=== PATIENT | male | born 1970 | race Caucasian/White ===

== ENCOUNTER 2016-08-20 12:07 | Emergency (ER) | payer BC ==
[2016-08-20] MEDS ORDERED: RABIES IMMUNE GLOB 150 UNIT/ML 10 ML VIAL IM ONE (12:20)
[2016-08-20] MEDS ORDERED: RABIES VACCINE (PCEC) 2.5 UNIT KIT IM ONE (12:20)
--- NOTE | 2016-08-20 12:27 | ED ---
Animal Bite HPI - General Chief Complaint: Animal Bite Stated Complaint: Rabies Exposure Time Seen by Provider: 08/20/16 12:20 Source: patient, RN notes reviewed Mode of arrival: ambulatory Limitations: no limitations - History of Present Illness Initial Comments: 46-year-old male presents emergency Department with chief complaint of bat exposure. Patient states that they're reviewed doing her house and he took on the ceiling which allowed bats to fly around the room and he recommended to come here for rabies vaccines. Patient denies any visible evidence of bite with the help Department recommended that he receive the vaccine. Patient states he did have some bats on them. Patient has NO KNOWN DRUG ALLERGIES. - Related Data Allergies Allergy/AdvReac Type Severity Reaction Status Date / Time No Known Allergies Allergy Verified 08/20/16 12:11 Review of Systems ROS Statement: Those systems with pertinent positive or pertinent negative responses have been documented in the HPI. ROS Other: All systems not noted in ROS Statement are negative. Past Medical History Past Medical History: No Reported History History of Any Multi-Drug Resistant Organisms: None Reported Past Surgical History: Cholecystectomy Past Psychological History: No Psychological Hx Reported Smoking Status: Current every day smoker Past Alcohol Use History: None Reported Past Drug Use History: None Reported General Exam Limitations: no limitations General appearance: alert, in no apparent distress Head exam: Present: atraumatic, normocephalic, normal inspection Neck exam: Present: normal inspection. Absent: tenderness, meningismus, lymphadenopathy Respiratory exam: Present: normal lung sounds bilaterally. Absent: respiratory distress, wheezes, rales, rhonchi, stridor Cardiovascular Exam: Present: regular rate, normal rhythm, normal heart sounds. Absent: systolic murmur, diastolic murmur, rubs, gallop, clicks Neurological exam: Present: alert, oriented X3, CN II-XII intact Psychiatric exam: Present: normal affect, normal mood Skin exam: Present: warm, dry, intact, normal color. Absent: rash Course Vital Signs 08/20/16 12:11 Temperature 97.3 F L Pulse Rate 87 Respiratory 16 Rate Blood Pressure 128/77 O2 Sat by Pulse 98 Oximetry Medical Decision Making - Medical Decision Making Patient was given rabies vaccine and immunoglobulin. Prescription was written for rabies vaccine on days 04/13/2013. Return parameters were discussed. Disposition Clinical Impression: Exposure to bat without known bite Disposition: HOME SELF-CARE Condition: Stable Instructions: Animal Bite (ED) Additional Instructions: Please return to the Emergency Department if symptoms worsen or any other concerns. Referrals: Xin Mills MD [Primary Care Provider] - 1-2 days Time of Disposition: 12:27
[2016-08-20] MEDS ORDERED: RABIES IMMUNE GLOB 150UNIT/ML 2 ML VIAL IM ONE (12:30)
[2016-08-20 13:59] VITALS: BP 126/86; PULSE 83; RESP 20; TEMP 96
== END 2016-08-20 13:58 | disposition home or self-care (01) ==
LOC: EC 12:07
DX: Z20.3 Contact with and (suspected) exposure to rabies (principal); F17.200 Nicotine dependence, unspecified, uncomplicated; Z23 Encounter for immunization
CPT/HCPCS: 90375; 90471; 90675; 96372; 99283

== ENCOUNTER → 2019-06-21 | Outpatient (CLI) | payer BC | END | disposition home or self-care (01) | LOC: LABWHC1 08:08 | PROVIDERS: ATTEND Internal Medicine | DX: R50.9 Fever, unspecified (principal) | CPT/HCPCS: 87635 ==

== ENCOUNTER → 2020-03-19 | Outpatient (CLI) | payer BC | END | disposition home or self-care (01) | LOC: LABWHC1 15:26 | PROVIDERS: ATTEND Internal Medicine | DX: R05 Cough (principal); R68.83 Chills (without fever) | CPT/HCPCS: U0003; C9803 ==

== ENCOUNTER 2021-06-20 23:23 | Inpatient (IN) | payer BC ==
[2021-06-21 00:35] LABS: ALT 13 U/L (4-49); AST 32 U/L (17-59); African American GFR (CKD) >90 (>60 ml/min/1.73 sqM); Albumin 3.6 g/dL (3.5-5.0); Alkaline Phosphatase 101 U/L (38-126); Anion Gap 8 mmol/L; Blood Urea Nitrogen 17 mg/dL (9-20); Calcium 8.8 mg/dL (8.4-10.2); Carbon Dioxide 22 mmol/L (22-30); Chloride 100 mmol/L (98-107); Glucose 109 mg/dL (74-99); Non-African American GFR(CKD) 86 (>60 ml/min/1.73 sqM); Potassium 4.2 mmol/L (3.5-5.1); Sodium 130 mmol/L (137-145); Total Bilirubin 2.1 mg/dL (0.2-1.3); Total Protein 6.3 g/dL (6.3-8.2)
--- NOTE | 2021-06-21 00:37 | XR ---
EXAMINATION TYPE: XR chest 2V DATE OF EXAM: 06/21/2021 COMPARISON: 03/19/2021 HISTORY: Short of breath. Chest pain TECHNIQUE: FINDINGS: There is no heart failure nor confluent pneumonic infiltrate. Heart appears slightly enlarg ed. There are no hilar masses. There are chest leads. There is no pleural effusion. IMPRESSION: Mild cardiomegaly. No change.
--- NOTE | 2021-06-21 00:45 | ED ---
Chest Pain HPI - General Chief Complaint: Chest Pain Stated Complaint: chest pain Time Seen by Provider: 06/21/21 00:42 Source: patient, family Mode of arrival: EMS Limitations: altered mental status, physical limitation - History of Present Illness Initial Comments: This patient is a 51-year-old man who presents with a constellation of symptoms that includes shortness of breath especially orthopnea, a feeling like his abdominal girth is increasing, bilateral leg swelling, that have been getting worse over a few days to weeks. The symptoms had probably started 3 months ago. The patient had been seen about 3 weeks ago and was diagnosed with congestive heart failure. He feels that it is worsening. He has not noted fever or chills. No thick sputum. MD Complaint: chest pain -: hour(s) Onset: during rest Pain Location: substernal Pain Radiation: none Quality: dull Consistency: constant Improves With: nothing Worsens With: nothing Other Symptoms: leg swelling - Related Data Home Medications Medication Instructions Recorded Confirmed Aspirin EC [Ecotrin Low Dose] 81 mg PO DAILY 06/21/21 06/21/21 Atorvastatin [Lipitor] 40 mg PO HS 06/21/21 06/21/21 Zolpidem [Ambien] 5 mg PO HS 06/21/21 06/21/21 Previous Rx's Medication Instructions Recorded Acetaminophen Tab [Tylenol] 650 mg PO Q6HR PRN tab 06/24/21 Bumetanide [BUMEX] 2 mg PO DAILY #90 tab 06/24/21 DULoxetine HCL [Cymbalta] 30 mg PO DAILY #30 cap 06/24/21 HYDROcodone/APAP 5-325MG [[place] 1 each PO Q8HR PRN 2 Days #6 tab 06/24/21 5-325] Allergies Allergy/AdvReac Type Severity Reaction Status Date / Time strawberry AdvReac Rash/Hives Verified 06/21/21 12:52 Review of Systems ROS Statement: Those systems with pertinent positive or pertinent negative responses have been documented in the HPI. ROS Other: All systems not noted in ROS Statement are negative. Constitutional: Denies: fever, chills Respiratory: Reports: cough, dyspnea. Denies: wheezes, hemoptysis, stridor Cardiovascular: Reports: chest pain, orthopnea. Denies: palpitations, dyspnea on exertion, edema, syncope Gastrointestinal: Denies: abdominal pain, nausea, vomiting, diarrhea Genitourinary: Denies: dysuria, hematuria Musculoskeletal: Denies: back pain Skin: Denies: rash Neurological: Denies: headache, weakness EKG Findings - EKG Results: EKG: interpreted by JAMESON, sinus rhythm (Rate 80 bpm) - Blocks, Mustang, Hypertrophy, ST Abn: QRS axis and voltage: left axis deviation (-30 to -90), low voltage (<0.5 MV total QRS and <1.0 MV in each precordial lead) - [place], Pacemaker, Normal: Myocardial infarction: septal [place] (old age or indeterminate) (Possible anteroseptal infarct) Past Medical History Past Medical History: Cancer, Heart Failure, GERD/Reflux, Syncope Additional Past Medical History / Comment(s): Multiple myleoma dx a month ago, Cardiac Amylodosis History of Any Multi-Drug Resistant Organisms: None Reported Past Surgical History: Cholecystectomy, Heart Catheterization Past Anesthesia/Blood Transfusion Reactions: No Reported Reaction Past Psychological History: No Psychological Hx Reported Smoking Status: Current every day smoker Past Alcohol Use History: None Reported Past Drug Use History: None Reported General Exam Limitations: altered mental status, physical limitation General appearance: alert, in no apparent distress Head exam: Present: atraumatic, normocephalic Eye exam: Present: normal appearance. Absent: scleral icterus, conjunctival injection ENT exam: Present: normal oropharynx Neck exam: Present: normal inspection Respiratory exam: Present: rales. Absent: rhonchi Cardiovascular Exam: Present: regular rate, normal rhythm GI/Abdominal exam: Present: soft. Absent: distended, tenderness, guarding, rebound, rigid, mass, pulsatile mass Extremities exam: Present: full ROM, normal capillary refill, pedal edema. Absent: tenderness, calf tenderness Back exam: Present: normal inspection. Absent: CVA tenderness (R), CVA tenderness (L) Neurological exam: Present: alert Skin exam: Present: warm, dry, intact, normal color. Absent: rash Course Vital Signs 06/20/21 06/21/21 06/21/21 23:35 01:30 03:32 Temperature 97.8 F Pulse Rate 79 77 76 Respiratory 20 16 16 Rate Blood Pressure 102/76 100/70 103/71 O2 Sat by Pulse 98 97 96 Oximetry 06/21/21 06:19 Temperature Pulse Rate 73 Respiratory 18 Rate Blood Pressure 108/74 O2 Sat by Pulse 96 Oximetry Disposition Clinical Impression: Heart failure, NSTEMI (non-ST elevated myocardial infarction) Disposition: ADMITTED IP TO THIS HOSP Condition: Fair Is patient prescribed a controlled substance at d/c from ED?: No
[2021-06-21 00:47] LABS: INR 1.2 (<1.2); Prothrombin Time 12.4 sec (9.0-12.0)
[2021-06-21 01:18] LABS: Anisocytosis Slight; Basophils # (A) 0.1 k/uL (0-0.2); Basophils % (A) 2 %; Eosinophils # (A) 0.2 k/uL (0-0.7); Eosinophils % (A) 2 %; HCT 39.6 % (39.0-53.0); HGB 12.7 gm/dL (13.0-17.5); Lymphocytes # (A) 1.5 k/uL (1.0-4.8); Lymphocytes % (A) 20 %; MCH 29.8 pg (25.0-35.0); MCHC 32.1 g/dL (31.0-37.0); MCV 92.8 fL (80.0-100.0); Mean Platelet Volume 10.5; Monocytes # (A) 0.6 k/uL (0-1.0); Monocytes % (A) 8 %; Neutrophils # (A) 4.9 k/uL (1.3-7.7); Neutrophils % (A) 67 %; Platelet Count 156 k/uL (150-450); RBC 4.27 m/uL (4.30-5.90); RDW 17.8 % (11.5-15.5); WBC 7.4 k/uL (3.8-10.6)
[2021-06-21] MEDS ORDERED: MORPHINE SULFATE 4 MG/ML SYRINGE IVP STA ×2 (02:02→06:05)
--- NOTE | 2021-06-21 04:39 | CT ---
EXAMINATION TYPE: CT chest angio for PE DATE OF EXAM: 06/21/2021 COMPARISON: None HISTORY: chest pain, possible PE CT DLP: 484.1 mGycm Automated exposure control for dose reduction was used. CONTRAST: Performed with IV Contrast, patient injected with 80 ml mL of Isovue 370. There are Three-D postprocessed images. The lungs are clear of infiltrate. No pulmonary consolidation. No pleural effusion. Heart is enlarged . There is a mild pericardial effusion. There is moderate abdominal ascites. There are clips from cho lecystectomy. There are a few paratracheal lymph nodes up to 1.5 cm. There are no hilar masses. There are a few sma ll bronchial lymph nodes. There is normal contrast opacification of the pulmonary arteries. There are no filling defects. The thoracic spine is intact. Sternum is intact. The ribs appear intact. IMPRESSION: No evidence of pulmonary embolism. Cardiomegaly with pericardial effusion. Mild mediastinal and bronchial adenopathy. Ascites.
[2021-06-21] MEDS ORDERED: HEPARIN SODIUM 1,000 UN/ML (10ML VL) IV ONE (10:27)
[2021-06-21] MEDS ORDERED: HEPARIN SODIUM 1,000 UN/ML (10ML VL) IV PRN (10:27)
[2021-06-21] MEDS ORDERED: HEPARIN SOD,PORK IN 0.45% NACL 25,000 UNIT in 0.45% NACL 1 250ML.BAG IV SCH (10:30)
--- NOTE | 2021-06-21 10:33 | US ---
EXAMINATION TYPE: US venous doppler duplex LE BI DATE OF EXAM: 06/21/2021 7:21 AM COMPARISON: NONE CLINICAL HISTORY: 51-year-old male leg swelling. SIDE PERFORMED: Bilateral TECHNIQUE: The lower extremity deep venous system is examined utilizing real time linear array sonog alivia with graded compression, doppler sonography and color-flow sonography. FINDINGS: VESSELS IMAGED: Common Femoral Vein Deep Femoral Vein Greater Saphenous Vein * Femoral Vein Popliteal Vein Small Saphenous Vein * Proximal Calf Veins (* superficial vessels) Right Leg: Negative for DVT Left Leg: Negative for DVT IMPRESSION: No evidence for DVT within the bilateral lower extremities imaged from the groin to the upper calf.
[2021-06-21] MEDS ORDERED: FUROSEMIDE 10 MG/ML 4 ML VIAL IV STA (10:46)
--- NOTE | 2021-06-21 10:49 | P.HPIM ---
History of Present Illness This is a pleasant 51 years old male with past medical history of GERD, syncope, heart disease and history of systolic heart failure. His smoker about 1/2-1 PPD Patient states he came to the hospital because of bloated Eris slightly getting worse over the last 3 months as well as leg swelling. Also patient has been feeling dizzy and he was out of it yesterday on and off, he felt like presyncope and actually he was told me he passed out for a few seconds twice yesterday. No evidence of seizure-like activities, Is also been complaining of from epigastric abdominal pain that states that it illustrates to the bottom, started yesterday about 7-8/10 in severity, felt like a knife with no vomiting, he has normal bowel movement last one was He denies dysuria or urgency, no headache, no weakness or numbness, blurred vision or swallowing problem. Also patient has been complaining of from epigastric abdominal pain radiating st raight to the bottom as he states pain started yesterday, currently 7-8/10, felt like a knife. No vomiting. Last bowel movement was yesterday and was normal. Also pat also has been complaining of from central chest pain, nonradiating, started yesterday about 5/10 in severity, felt like someone sitting on his chest. Nonsuicidal having dry cough. No dyspnea. He smokes about 2 cigarettes per day he was consulted and he does not want nicotine patch, he denies alcohol or illicit drugs Neck ultrasound is negative for DVT Patient is afebrile, blood pressure is 102/69. He is saturating 95% on room air. Tarsal vitals are stable. labs reviewed, hemoglobin 12.7, rest of CBC is unremarkable. INR is 1.2. Sodium 1:30. Creatinine 1.0. Stress of her electrolytes and BMP is unremarkable. Bilirubin slightly elevated 2.1, liver enzymes not elevated. Troponin is elevated 0.384. ProBNP is also elevated 10 500. D-dimer slightly elevated 1.1 EKG showing his normal sinus rhythm at 80 with low voltage and poor R-wave progression. QTC 417. No significant ST-T changes. CTA of the chest: No pulmonary infiltrate or consolidation. Moderate abdominal ascites. No evidence of pulmonary embolism cardiomegaly with pericardial effusion. Mild mediastinal and bronchial adenopathy Chest x-ray: Mild cardiomegaly. No change On admission patient received morphine only. Also patient started by heparin drip by education faculty member Recent echo: ejection fraction of 30-35% on 03/31 Review of Systems CONSTITUTIONAL: No fever, no malaise, no fatigue. HEENT: No recent visual problems or hearing problems. Denied any sore throat. CARDIOVASCULAR: No orthopnea, PND, no palpitations, no syncope. PULMONARY: No chest wall tenderness, no hemoptysis. GASTROINTESTINAL: No diarrhea, no nausea, no vomiting, no abdominal pain. Normoactive bowel sounds. NEUROLOGICAL: No headaches, no weakness, no numbness. HEMATOLOGICAL: Denies any bleeding or petechiae. GENITOURINARY: Denies any burning micturition, frequency, or urgency. MUSCULOSKELETAL/RHEUMATOLOGICAL: Denies any joint pain, swelling, or any muscle pain. ENDOCRINE: Denies any polyuria or polydipsia. Past Medical History Past Medical History: Cancer, Heart Failure, GERD/Reflux, Syncope Additional Past Medical History / Comment(s): Multiple myleoma dx a month ago, Cardiac Amylodosis History of Any Multi-Drug Resistant Organisms: None Reported Past Surgical History: Cholecystectomy, Heart Catheterization Past Anesthesia/Blood Transfusion Reactions: No Reported Reaction Past Psychological History: No Psychological Hx Reported Smoking Status: Current every day smoker Past Alcohol Use History: None Reported Past Drug Use History: None Reported Medications and Allergies Home Medications Medication Instructions Recorded Confirmed Type Acetaminophen Tab [Tylenol Tab] 1,000 mg PO Q6HR PRN 03/19/21 03/19/21 History Ibuprofen [Motrin Ib] 800 mg PO Q8H PRN 03/19/21 03/19/21 History Omeprazole 20 mg PO DAILY 03/19/21 03/19/21 History Allergies Allergy/AdvReac Type Severity Reaction Status Date / Time strawberry AdvReac Rash/Hives Verified 06/20/21 23:35 Physical Exam Vitals: Vital Signs Temp Pulse Pulse Resp BP BP Pulse Ox 06/21/21 06:50 97.5 F L 84 18 102/69 95 06/21/21 06:19 73 18 108/74 96 06/21/21 03:32 76 16 103/71 96 06/21/21 01:30 77 16 100/70 97 06/20/21 23:35 97.8 F 79 20 102/76 98 Intake and Output 05/06/21/21 06/21/21 22:59 06:59 14:59 Other: Weight 92.079 kg GENERAL: The patient is alert and oriented x3, not in any acute distress. Well developed, well nourished. HEENT: Pupils are round and equally reacting to light. EOMI. No scleral icterus. No conjunctival pallor. Normocephalic, atraumatic. No pharyngeal erythema. No thyromegaly. CARDIOVASCULAR: S1 and S2 present. No murmurs, rubs, or gallops. PULMONARY: Chest is clear to auscultation, no wheezing or crackles. -ABDOMEN: Soft, nontender, distended, normoactive bowel sounds. No palpable organomegaly. MUSCULOSKELETAL: No joint swelling or deformity. -EXTREMITIES: No cyanosis, clubbing. mild bilateral leg edema NEUROLOGICAL: Gross neurological examination did not reveal any focal deficits. SKIN: No rashes. No petechiae Results CBC & Chem 7: 06/21/21 01:05 06/21/21 00:18 Labs: Abnormal Lab Results - Last 24 Hours (Table) 06/21/21 06/21/21 06/21/21 Range/Units 00:18 00:18 00:18 RBC (4.30-5.90) m/uL Hgb (13.0-17.5) gm/dL RDW (11.5-15.5) % PT 12.4 H (9.0-12.0) sec INR 1.2 H (<1.2) D-Dimer 1.19 H (<0.60) mg/L FEU Sodium 130 L (137-145) mmol/L Glucose 109 H (74-99) mg/dL Total Bilirubin 2.1 H (0.2-1.3) mg/dL Troponin I 0.384 H* (0.000-0.034) ng/mL 06/21/21 Range/Units 01:05 RBC 4.27 L (4.30-5.90) m/uL Hgb 12.7 L (13.0-17.5) gm/dL RDW 17.8 H (11.5-15.5) % PT (9.0-12.0) sec INR (<1.2) D-Dimer (<0.60) mg/L FEU Sodium (137-145) mmol/L Glucose (74-99) mg/dL Total Bilirubin (0.2-1.3) mg/dL Troponin I (0.000-0.034) ng/mL Assessment and Plan Assessment: Chest pain, with elevated troponin rule out cardiac causes Acute and chronic systolic CHF with history of ejection fraction of 30-35% on 03/31 Hypervolemic hyponatremia Presyncope, patient actually passed out twice for a few seconds as he states Elevated d-dimer with negative PE and DVT on CTA and venous Doppler respectively Possible acute delirium History of GERD History of syncope Plan: This is a pleasant 51 years old male who presents with CHF and chest pain and elevated troponin. Cardiology consult We will check abdominal ultrasound Check CT of the brain and a neuro check. Check urinalysis and bladder scan Labs and medication were reviewed.. Continue same treatment. Continue with symptomatic treatment. Resume home medication. Monitor lytes and vitals. DVT and GI prophylaxis. Further recommendations depends on the clinical course of the patient DVT prophylaxisin GI Prophylaxis: Ppi Prognosis is guarded
--- NOTE | 2021-06-21 11:12 | CT ---
EXAMINATION TYPE: CT brain wo con DATE OF EXAM: 06/21/2021 COMPARISON: None HISTORY: 51-year-old male with confusion and syncope, Episode of altered mental status TECHNIQUE: Examination was done in axial plane without intravenous contrast. Coronal and sagittal r econstructions performed. CT DLP: 1131.4 mGycm Automated exposure control for dose reduction was used. FINDINGS: There is no evidence of acute intracranial hemorrhage, acute ischemic changes, mass, mass-effect, or extra-axial fluid collection. There is no effacement of cerebral sulci or basal subarachnoid cister ns. There is no hydrocephalus. There is no midline shift. [place]-white matter distinction is preserv ed. Leftward nasal septal deviation. Trace mucosal thickening ethmoid air cells. Mastoid air cells well p neumatized. Orbits and globes are intact. IMPRESSION: No acute intracranial abnormality seen.
[2021-06-21 11:25] LABS: Anisocytosis Slight; Basophils # (A) 0.1 k/uL (0-0.2); Basophils % (A) 1 %; Eosinophils # (A) 0.1 k/uL (0-0.7); Eosinophils % (A) 2 %; HCT 41.5 % (39.0-53.0); HGB 13.3 gm/dL (13.0-17.5); Hypochromasia Slight; Lymphocytes # (A) 1.4 k/uL (1.0-4.8); Lymphocytes % (A) 23 %; MCH 30.3 pg (25.0-35.0); MCHC 31.9 g/dL (31.0-37.0); Macrocytosis Slight; Mean Platelet Volume 10.4; Monocytes # (A) 0.5 k/uL (0-1.0); Monocytes % (A) 8 %; Neutrophils # (A) 3.8 k/uL (1.3-7.7); Neutrophils % (A) 64 %; Platelet Count 163 k/uL (150-450); RBC 4.37 m/uL (4.30-5.90); RDW 18.1 % (11.5-15.5)
[2021-06-21 12:15] LABS: Poikilocytosis (M) Present
[2021-06-21 12:43] LABS: Appearance,Urine Clear (Clear); Bilirubin,Urine Negative (Negative); Blood,Urine Trace (Negative); Color,Urine Yellow; Glucose,Urine (UA) Negative (Negative); Hyaline Casts,Urine 1 /lpf (0-2); Ketones,Urine Negative (Negative); Leukocyte Esterase,Urine Negative (Negative); Nitrite,Urine Negative (Negative); PH, Urine 5.5 (5.0-8.0); Protein,Urine Negative (Negative); RBC,Urine 1 /hpf (0-5); Specific Gravity,Urine 1.015 (1.001-1.035); Squamous Epithelial Cell,Urine 1 /hpf (0-4); Urobilinogen,Urine <2.0 mg/dL (<2.0); WBC,Urine 5 /hpf (0-5)
[2021-06-21] MEDS: PANTOPRAZOLE 40 MG/10 ML VIAL IVP SCH (12:44)
--- NOTE | 2021-06-21 13:43 | US ---
EXAMINATION TYPE: US abdomen complete DATE OF EXAM: 06/21/2021 COMPARISON: NONE CLINICAL HISTORY: 51-year-old male Epigastric pain and tenderness and abdominal distention. TECHNIQUE: Multiple sonographic images of the abdomen are obtained. FINDINGS: EXAM MEASUREMENTS: Liver Length: 15.7cm Gallbladder: Surgically absent CBD: Approximated at 0.4 cm Spleen: 8.6 cm Right Kidney: 8.8 x 5.0 x 4.1cm Left Kidney: 9.7 x 4.4 x 5.2cm Jar Filler notes: Technically difficult exam due to overlying bowel gas, interstitial edema, ascites and overlying bowel gas. Pancreas: Obscured by bowel gas Liver: limited views show no gross abnormality. Gallbladder: Surgically absent CBD: very limited visualization Spleen: wnl Right Kidney: measures small Left Kidney: limited views show no obvious mass or hydronephrosis. Upper IVC: wnl Abd Aorta: not seem due to interstitial edema, fluid and overlying bowel gas Scattered mild to moderate ascites in the 4 quadrants. IMPRESSION: Technically limited and difficult exam. Status post cholecystectomy. No biliary ductal dilatation. Mi [id number] abdominal ascites.
--- NOTE | 2021-06-21 18:13 | P.CRDCN ---
History of Present Illness History of present illness: HISTORY OF PRESENTING ILLNESS Patient is a pleasant 51-year-old male with a history of TIA approximately 20 years ago, tobacco abuse, recent diagnosis of systolic heart failure March 2021 with findings consistent with cardiac amyloidosis as well as found to have multiple myeloma. Initially had presented in March 2021 with episodes of shortness breath, chest discomfort, increased abdominal swelling and echo showed EF 30-35% with global hypokinesis as well as severe left ventricular thickness measuring 2.0 cm and mild to moderate tricuspid regurgitation with RVSP of 47 with a small pericardial effusion. EKG was noted to have low voltage and he had minimal troponin elevation at that time. Strain pattern showed "rouse on top" apical sparing concerning for cardiac amyloidosis. His free [place] light chain was 5.2 and his free lambda light chain was severely elevated at 80.8. Unfortunately he left AMA and did not have remainder of workup performed. He eventually follow up with a bridge welder out of [facility] with cardiac MRI performed apparently consistent with cardiac amyloidosis. He has been seen a client executive as well and was diagnosed with multiple myeloma however no treatment has been initiated as definitive diagnosis of cardiac amyloid was desired by client executive. Apparently they are considering bone marrow transplant. He therefore was referred to heart failure specialist Dr. Li with [facility] and has an appointment this with recommendations for possible cardiac biopsy. Apparently he had a fat pad biopsy performed which was negative for amyloid. He additionally has some neuropathy in his lower extremity. He was initially placed on some heart failure regimen with lisinopril 5 mg daily, carvedilol 3.125 mg twice a day, Lasix 40 mg daily. He states he had a heart catheterization which showed only mild nonobstructive CAD. Unclear if he had a right heart catheterization at that time. Unfortunately he has had progressive mainly abdominal swelling as well as mild lower extremity swelling. His Lasix oral has not been working as well at home as it did previously. He presented secondary to symptoms of shortness breath and orthopnea over the last few days to weeks. Additionally he had a episode of feeling lightheaded and "woozy" and was having some chest pain and therefore decided come to the emergency department. Denies any recent fevers, chills, cough. Chest CT showed no pulmonary embolism with cardiomegaly and mild pericardial effusion. EKG shows low voltage with poor R-wave progression and T-wave inversions, flattening in the lateral leads. Troponin mildly elevated at 0.38, 0.40, 0.42. Similar to prior presentation in March previously 0.35. Blood pressures above more line 102/69. He did receive IV Lasix 40 mg with good urine output. REVIEW OF SYSTEMS At the time of my exam: CONSTITUTIONAL: Denies fever or chills. CARDIOVASCULAR: +chest pain, +shortness of breath, +orthopnea, PND or palpitations. RESPIRATORY: Denies cough. GASTROINTESTINAL: Denies abdominal pain, diarrhea, constipation, nausea or vomiting. MUSCULOSKELETAL: Denies myalgias. NEUROLOGIC: Denies numbness, tingling or weakness. ENDOCRINE: +fatigue, +weight gain, no polydipsia or polyurina. GENITOURINARY: Denies burning, hematuria or urgency with micturation. HEMATOLOGIC: Denies history of anemia or bleeding. PHYSICAL EXAMINATION Vital signs reviewed. CONSTITUTIONAL: No apparent distress. HEENT: Head is normocephalic. Pupils are equal, round. Sclerae anicteric. Mucous membranes of the mouth are moist. +JVD. No carotid bruit. CHEST EXAMINATION: Lungs are clear to auscultation. No chest wall tenderness is noted on palpation or with deep breathing. HEART EXAMINATION: Regular rate and rhythm. S1, S2 heard. No murmurs, gallops or rub. ABDOMEN: Soft, nontender. Positive bowel sounds. EXTREMITIES: 2+ peripheral pulses, 1+ lower extremity edema and no calf tenderness. +abdominal edema NEUROLOGIC EXAMINATION: Patient is awake, alert and oriented x3. ASSESSMENT 1. Acute on chronic systolic heart failure 2. Nonischemic cardiomyopathy EF 30-35% with all of workup consistent with cardiac amyloidosis 3. Non-STEMI, type II mechanism related to heart failure, microvascular dysfunction from cardiac amyloid 4. Multiple myeloma elevated light chains 5. Small pericardial effusion, appears similar to previous echo 6. Episode of lightheadedness, concern of end-stage heart failure 7. 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 Li on . Patient will likely need right heart catheterization to further classify patient however some concern of end-stage heart failure with some lightheaded episodes. He currently appears time overloaded and we will continue with diuretics. Continue with carvedilol for now however may discontinue if has low cardiac output. Continue afterload reduction with lisinopril. No evidence of any acute coronary syndrome and elevated troponins, chest pain related to microvascular dysfunction from cardiac amyloid. Stop heparin drip. Continue supportive care and hopeful discharge in next 2-3 days with follow-up outpatient with heart failure specialist. Past Medical History Past Medical History: Cancer, Heart Failure, GERD/Reflux, Syncope Additional Past Medical History / Comment(s): Multiple myleoma dx a month ago, Cardiac Amylodosis History of Any Multi-Drug Resistant Organisms: None Reported Past Surgical History: Cholecystectomy, Heart Catheterization Past Anesthesia/Blood Transfusion Reactions: No Reported Reaction Past Psychological History: No Psychological Hx Reported Smoking Status: Current every day smoker Past Alcohol Use History: None Reported Past Drug Use History: None Reported Medications and Allergies Home Medications Medication Instructions Recorded Confirmed Type Aspirin EC [Ecotrin Low Dose] 81 mg PO DAILY 06/21/21 06/21/21 History Atorvastatin [Lipitor] 40 mg PO HS 06/21/21 06/21/21 History Furosemide [Lasix] 40 mg PO DAILY 06/21/21 06/21/21 History Zolpidem [Ambien] 5 mg PO HS 06/21/21 06/21/21 History carvediloL [Coreg] 3.125 mg PO BID 06/21/21 06/21/21 History lisinopriL [Zestril] 5 mg PO DAILY 06/21/21 06/21/21 History Allergies Allergy/AdvReac Type Severity Reaction Status Date / Time strawberry AdvReac Rash/Hives Verified 06/21/21 12:52 Physical Exam Vitals: Vital Signs Temp Pulse Pulse Resp BP BP Pulse Ox 06/21/21 14:00 18 06/21/21 12:00 97.3 F L 80 18 108/69 97 06/21/21 07:16 18 06/21/21 07:15 97.2 F L 72 18 94/63 95 06/21/21 06:50 97.5 F L 84 18 102/69 95 06/21/21 06:19 73 18 108/74 96 06/21/21 03:32 76 16 103/71 96 06/21/21 01:30 77 16 100/70 97 06/20/21 23:35 97.8 F 79 20 102/76 98 Intake and Output 06/21/21 06/21/21 06/21/21 06:59 14:59 22:59 Intake Total 150 260 Output Total 260 700 Balance -110 -440 Intake: IV 30 Invasive Line 1 10 Invasive Line 2 20 Oral 120 260 Output: Urine 230 700 Post Void Residual 30 Other: # Voids 1 Weight 92.079 kg 92.079 kg Results 06/21/21 10:44 06/21/21 00:18 Cardiac Enzymes 06/21/21 06/21/21 06/21/21 Range/Units 00:18 00:18 07:02 AST 32 (17-59) U/L Troponin I 0.384 H* 0.408 H* (0.000-0.034) ng/mL 06/21/21 Range/Units 09:00 AST (17-59) U/L Troponin I 0.428 H* (0.000-0.034) ng/mL Coagulation 06/21/21 06/21/21 Range/Units 00:18 10:44 PT 12.4 H (9.0-12.0) sec APTT 25.5 (22.0-30.0) sec CBC 06/21/21 06/21/21 Range/Units 01:05 10:44 WBC 7.4 6.0 (3.8-10.6) k/uL RBC 4.27 L 4.37 (4.30-5.90) m/uL Hgb 12.7 L 13.3 (13.0-17.5) gm/dL Hct 39.6 41.5 (39.0-53.0) % Plt Count 156 163 (150-450) k/uL Comprehensive Metabolic Panel 06/21/21 Range/Units 00:18 Sodium 130 L (137-145) mmol/L Potassium 4.2 (3.5-5.1) mmol/L Chloride 100 (98-107) mmol/L Carbon Dioxide 22 (22-30) mmol/L BUN 17 (9-20) mg/dL Creatinine 1.02 (0.66-1.25) mg/dL Glucose 109 H (74-99) mg/dL Calcium 8.8 (8.4-10.2) mg/dL AST 32 (17-59) U/L ALT 13 (4-49) U/L Alkaline Phosphatase 101 (38-126) U/L Total Protein 6.3 (6.3-8.2) g/dL Albumin 3.6 (3.5-5.0) g/dL Current Medications Generic Name Dose Route Start Last Admin Trade Name Alex PRN Reason Stop Dose Admin Furosemide 80 mg 06/21/21 18:00 Furosemide 10 Mg/Ml 10 Ml Vial IV Q12H MIGUEL Heparin Sodium (Porcine) 0 unit 06/21/21 10:27 Heparin Sodium 1,000 Un/Ml (10ml Vl) IV PER PROTOCOL PRN Low PTT Protocol Heparin Sodium/Sodium Chloride 250 mls @ 10 mls/hr 06/21/21 10:30 06/21/21 12:44 25,000 unit/ Sodium Chloride IV 10.86 units/kg/hr .Q24H MIGUEL 10 mls/hr Administration Protocol 10.86 UNITS/KG/HR Pantoprazole Sodium 40 mg 06/21/21 11:00 06/21/21 12:44 Pantoprazole 40 Mg/10 Ml Vial IVP 40 mg DAILY MIGUEL Administration Sodium Chloride 10 ml 06/21/21 09:00 06/21/21 11:02 Sodium Chloride 0.9% Flush 10 Ml Syringe IV Not Given BID MIGUEL Intake and Output 06/21/21 06/21/21 06/21/21 06:59 14:59 22:59 Intake Total 150 260 Output Total 260 700 Balance -110 -440 Intake: IV 30 Invasive Line 1 10 Invasive Line 2 20 Oral 120 260 Output: Urine 230 700 Post Void Residual 30 Other: # Voids 1 Weight 92.079 kg 92.079 kg Patient Weight 06/22/21 06:59 Weight 92.079 kg 06/21/21 10:44 06/21/21 00:18
[2021-06-21] MEDS: FUROSEMIDE 10 MG/ML 10 ML VIAL IV SCH (18:37)
[2021-06-22] MEDS: FUROSEMIDE 10 MG/ML 10 ML VIAL IV SCH ×2 (05:15→17:16)
[2021-06-22 06:31] LABS: Anisocytosis Slight; Basophils # (A) 0.1 k/uL (0-0.2); Basophils % (A) 1 %; Eosinophils # (A) 0.1 k/uL (0-0.7); Eosinophils % (A) 2 %; HCT 38.8 % (39.0-53.0); HGB 12.5 gm/dL (13.0-17.5); Hypochromasia Slight; Lymphocytes # (A) 1.2 k/uL (1.0-4.8); Lymphocytes % (A) 25 %; MCH 30.6 pg (25.0-35.0); MCHC 32.2 g/dL (31.0-37.0); MCV 95.1 fL (80.0-100.0); Macrocytosis Slight; Mean Platelet Volume 10.5; Monocytes # (A) 0.4 k/uL (0-1.0); Monocytes % (A) 8 %; Neutrophils # (A) 3.2 k/uL (1.3-7.7); Neutrophils % (A) 62 %; Platelet Count 156 k/uL (150-450); RBC 4.08 m/uL (4.30-5.90); RDW 18.3 % (11.5-15.5); WBC 5.1 k/uL (3.8-10.6)
[2021-06-22 06:39] LABS: INR 1.2 (<1.2); Prothrombin Time 12.4 sec (9.0-12.0)
[2021-06-22 06:47] LABS: ALT 12 U/L (4-49); AST 29 U/L (17-59); African American GFR (CKD) >90 (>60 ml/min/1.73 sqM); Albumin 3.3 g/dL (3.5-5.0); Alkaline Phosphatase 104 U/L (38-126); Anion Gap 9 mmol/L; Blood Urea Nitrogen 15 mg/dL (9-20); Calcium 8.4 mg/dL (8.4-10.2); Carbon Dioxide 22 mmol/L (22-30); Chloride 101 mmol/L (98-107); Glucose 74 mg/dL (74-99); Magnesium 2.1 mg/dL (1.6-2.3); Non-African American GFR(CKD) 84 (>60 ml/min/1.73 sqM); Potassium 4.2 mmol/L (3.5-5.1); Sodium 132 mmol/L (137-145); Total Bilirubin 2.3 mg/dL (0.2-1.3); Total Protein 5.9 g/dL (6.3-8.2)
[2021-06-22] MEDS: PANTOPRAZOLE 40 MG/10 ML VIAL IVP SCH (08:24)
[2021-06-22 12:34] VITALS: BMI 29.5
--- NOTE | 2021-06-22 13:40 | P.PN ---
Subjective Progress Note Date: 06/22/21 HISTORY OF PRESENTING ILLNESS Patient is a pleasant 51-year-old male with a history of TIA approximately 20 years ago, tobacco abuse, recent diagnosis of systolic heart failure March 2021 with findings consistent with cardiac amyloidosis as well as found to have multiple myeloma. Initially had presented in March 2021 with episodes of shortness breath, chest discomfort, increased abdominal swelling and echo showed EF 30-35% with global hypokinesis as well as severe left ventricular thickness measuring 2.0 cm and mild to moderate tricuspid regurgitation with RVSP of 47 with a small pericardial effusion. EKG was noted to have low voltage and he had minimal troponin elevation at that time. Strain pattern showed "rouse on top" apical sparing concerning for cardiac amyloidosis. His free [place] light chain was 5.2 and his free lambda light chain was severely elevated at 80.8. Unfortunately he left AMA and did not have remainder of workup performed. He eventually follow up with a tempering machine operator out of [facility] with cardiac MRI performed apparently consistent with cardiac amyloidosis. He has been seen a chief librarian music department as well and was diagnosed with multiple myeloma however no treatm ent has been initiated as definitive diagnosis of cardiac amyloid was desired by chief librarian music department. Apparently they are considering bone marrow transplant. He therefore was referred to heart failure specialist Dr. Li with [facility] and has an appointment this with recommendations for possible cardiac biopsy. Apparently he had a fat pad biopsy performed which was negative for amyloid. He additionally has some neuropathy in his lower extremity. He was initially placed on some heart failure regimen with lisinopril 5 mg daily, carvedilol 3.125 mg twice a day, Lasix 40 mg daily. He states he had a heart catheterization which showed only mild nonobstructive CAD. Unclear if he had a right heart catheterization at that time. Unfortunately he has had progressive mainly abdominal swelling as well as mild lower extremity swelling. His Lasix oral has not been working as well at home as it did previously. He presented secondary to symptoms of shortness breath and orthopnea over the last few days to weeks. Additionally he had a episode of feeling lightheaded and "woozy" and was having some chest pain and therefore decided come to the emergency department. Denies any recent fevers, chills, cough. Chest CT showed no pulmonary embolism with cardiomegaly and mild pericardial effusion. EKG shows low voltage with poor R-wave progression and T-wave inversions, flattening in the lateral leads. Troponin mildly elevated at 0.38, 0.40, 0.42. Similar to prior presentation in March previously 0.35. Blood pressures above more line 102/69. He did receive IV Lasix 40 mg with good urine output. 06/22/2021 Patient examined this morning at the bedside. Patient denies chest pain or pressure. He reports improvement in his shortness of breath. He states he related to the bathroom without any shortness of breath. He does report feeling short of breath when he is laying flat in bed. He remains on IV Lasix. Patient's blood pressure is on the lower side today with a systolic in the 80s. His carvedilol and lisinopril are currently on hold. PHYSICAL EXAMINATION Vital signs reviewed. CONSTITUTIONAL: No apparent distress. HEENT: Head is normocephalic. Pupils are equal, round. Sclerae anicteric. Mucous membranes of the mouth are moist. +JVD. No carotid bruit. CHEST EXAMINATION: Lungs are clear to auscultation. No chest wall tenderness is noted on palpation or with deep breathing. HEART EXAMINATION: Regular rate and rhythm. S1, S2 heard. No murmurs, gallops or rub. ABDOMEN: Soft, nontender. Positive bowel sounds. EXTREMITIES: 2+ peripheral pulses, 1+ lower extremity edema and no calf tenderness. NEUROLOGIC EXAMINATION: Patient is awake, alert and oriented x3. ASSESSMENT 1. Acute on chronic systolic heart failure 2. Nonischemic cardiomyopathy EF 30-35% with all of workup consistent with cardiac amyloidosis 3. Non-STEMI, type II mechanism related to heart failure, microvascular dysfunction from cardiac amyloid 4. Multiple myeloma elevated light chains 5. Small pericardial effusion, appears similar to previous echo 6. Episode of lightheadedness, concern of end-stage heart failure 7. 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 Continue to monitor blood pressure Patient undergoing workup for cardiac amyloid and scheduled to see heart failure specialist Dr. Li on . Patient will likely require right sided heart cath with his primary tempering machine operator. Further recommendations pending patient course Nurse practitioner note has been reviewed by physician. Signing provider agrees with the documented findings, assessment, and plan of care. Objective - Vital Signs Vital signs: Vital Signs Temp 98.2 F 06/22/21 12:00 Pulse 84 06/22/21 12:00 Resp 16 06/22/21 12:00 BP 100/66 06/22/21 12:00 Pulse Ox 99 06/22/21 12:00 Intake & Output 06/21/21 06/22/21 06/22/21 18:59 06:59 18:59 Intake Total 021.313 2083 Output Total 960 2250 700 Balance -489.833 -2250 320 Weight 92.079 kg 93.5 kg 93.5 kg Intake: IV 30 20 Invasive Line 1 10 Invasive Line 2 20 20 Intake, IV Titration 60.167 Amount Heparin Sod,Pork in 0.45% 60.167 NaCl 25,000 unit In 0.45 % NaCl 1 250ml.bag @ 10. 86 UNITS/KG/HR 10 mls/hr IV .Q24H MIGUEL Rx#: [id number] Oral 380 1000 Output: Urine 930 2250 700 Post Void Residual 30 Other: # Voids 1 - Labs CBC & Chem 7: 06/22/21 05:13 06/22/21 05:13 Labs: Abnormal Lab Results - Last 24 Hours (Table) 06/22/21 06/22/21 06/22/21 Range/Units 05:13 05:13 05:13 RBC 4.08 L (4.30-5.90) m/uL Hgb 12.5 L (13.0-17.5) gm/dL Hct 38.8 L (39.0-53.0) % RDW 18.3 H (11.5-15.5) % PT 12.4 H (9.0-12.0) sec INR 1.2 H (<1.2) Sodium 132 L (137-145) mmol/L Total Bilirubin 2.3 H (0.2-1.3) mg/dL Total Protein 5.9 L (6.3-8.2) g/dL Albumin 3.3 L (3.5-5.0) g/dL
[2021-06-22] MEDS ORDERED: ACETAMINOPHEN TAB 325 MG TAB PO PRN (17:27)
[2021-06-22] MEDS: ATORVASTATIN 40 MG TAB PO SCH (21:03)
[2021-06-22] MEDS: HYDROcodone/APAP 5-325MG 1 EACH TAB PO PRN (21:03)
--- NOTE | 2021-06-22 21:28 | P.PN ---
Subjective Progress Note Date: 06/22/21 This is a pleasant 51 years old male with past medical history of GERD, syncope, heart disease and history of systolic heart failure. His smoker about 1/2-1 PPD Patient states he came to the hospital because of bloated Eris slightly getting worse over the last 3 months as well as leg swelling. Also patient has been feeling dizzy and he was out of it yesterday on and off, he felt like presyncope and actually he was told me he passed out for a few seconds twice yesterday. No evidence of seizure-like activities, Is also been complaining of from epigastric abdominal pain that states that it illustrates to the bottom, started yesterday about 7-8/10 in severity, felt like a knife with no vomiting, he has normal bowel movement last one was He denies dysuria or urgency, no headache, no weakness or numbness, blurred vision or swallowing problem. Also patient has been complaining of from epigastric abdominal pain radiating straight to the bottom as he states pain started yesterday, currently 7-8/10, felt like a knife. No vomiting. Last bowel movement was yesterday and was normal. Also pat also has been complaining of from central chest pain, nonradiating, started yesterday about 5/10 in severity, felt like someone sitting on his chest. Nonsuicidal having dry cough. No dyspnea. He smokes about 2 cigarettes per day he was consulted and he does not want nicotine patch, he denies alcohol or illicit drugs Neck ultrasound is negative for DVT Patient is afebrile, blood pressure is 102/69. He is saturating 95% on room air. Tarsal vitals are stable. labs reviewed, hemoglobin 12.7, rest of CBC is unremarkable. INR is 1.2. Sodium 1:30. Creatinine 1.0. Stress of her electrolytes and BMP is unremarkable. Bilirubin slightly elevated 2.1, liver enzymes not elevated. Troponin is elevated 0.384. ProBNP is also elevated 10 500. D-dimer slightly elevated 1.1 EKG showing his normal sinus rhythm at 80 with low voltage and poor R-wave progression. QTC 417. No significant ST-T changes. CTA of the chest: No pulmonary infiltrate or consolidation. Moderate abdominal ascites. No evidence of pulmonary embolism cardiomegaly with pericardial effusion. Mild mediastinal and bronchial adenopathy Chest x-ray: Mild cardiomegaly. No change On admission patient received morphine only. Also patient started by heparin drip by dry mill operator Recent echo: ejection fraction of 30-35% on 03/3106/22/2021 Today patient is feeling less short of breath, was able to tolerate shower. Shortness of breath is worse when he is lying flat. Abdominal edema is improving. Lower extremity edema is also improving, now more so on the right than the left. Main complaint is feeling fatigued with low appetite. Labs today showing sodium of 132, total bili 2.3. Albumin 3.3. Continues on IV lasix 80 mg Q12. He is negative 2.9 Liters in the past 24 hours. Blood pressure on the lower side today 80/50's, lisinopril has been placed on hold in addition to coreg. He is being followed closely by cardiology services. Brain CT completed yesterday negative for acute. No further episodes of altered mentation. Abdominal ultrasound completed yesterday showing scattered mild to moderate abdominal ascites Review of Systems Constitutional: Reports fatigue. denied any fever. Cardio vascular: denied any chest pain, palpitations Gastrointestinal: denied any nausea, vomiting, diarrhea Pulmonary: Reports shortness of breath, positional. Denies cough Neurologic denied any new focal deficits All inpatient medications were reviewed and appropriate changes in these medications as dictated in the interval history and assessment and plan. PHYSICAL EXAMINATION: GENERAL: The patient is alert and oriented x3, not in any acute distress. Well developed, well nourished. HEENT: Pupils are round and equally reacting to light. EOMI. No scleral icterus. No conjunctival pallor. Normocephalic, atraumatic. No pharyngeal erythema. No thyromegaly. CARDIOVASCULAR: S1 and S2 present. No murmurs, rubs, or gallops. +JVD. PULMONARY: Bibasilar crackles, no wheezing noted. ABDOMEN: Soft, nontender, nondistended, normoactive bowel sounds. No palpable organomegaly. Edematous, no longer pitting. MUSCULOSKELETAL: No joint swelling or deformity. EXTREMITIES: No cyanosis, clubbing. Right greater than left lower extremity jessica ma. NEUROLOGICAL: Gross neurological examination did not reveal any focal deficits. SKIN: No rashes. Assessment and plan Assessment Acute on chronic systolic CHF Nonischemic cardiomypoathy with history of ejection fraction of 30-35% on 03/31, work up so far consistent with cardiac amyloidosis, scheduled to see specialist on regarding biopsy Elevated troponins secondary to Type 2 NSTEMI related to cardiac amyloid Ascites secondary to hepatic congestion Hypervolemic hyponatremia, improving Presyncope, per patient passed out twice for 2 seconds each time, concern for end-stage heart failure Elevated d-dimer with negative PE and DVT on CTA and venous Doppler respectively Multiple myeloma has not undergone treatment yet Peripheral neuropathy History of GERD History of syncope GI prophylaxis DVT Prophylaxis Plan Continue IV lasix, monitor intake and output Coreg, Lisinopril on hold for hypotension Continue neuro checks Pain management Repeat sodium level in AM Cardiology following patient closely Prognosis guarded The impression and plan of care has been dictated by Jaylin Gilmore, Nurse Practitioner as directed. Dr. Jeanmarie MD I have performed a history and physical examination and medical decision making of this patient, discussed the same with the dictator, and agree with the dictators assessment and plan as written, documented as a scribe. Based on total visit time, I have performed more than 50% of this visit. Objective - Vital Signs Vital signs: Vital Signs Temp 98.6 F 06/22/21 08:24 Pulse 87 06/22/21 08:24 Resp 16 06/22/21 08:24 BP 84/51 06/22/21 08:24 Pulse Ox 93 L 06/22/21 08:24 Intake & Output 06/21/21 06/22/21 06/22/21 18:59 06:59 18:59 Intake Total 470.167 560 Output Total 960 2250 700 Balance -489.833 -2250 -140 Weight 92.079 kg 93.5 kg Intake: IV 30 10 Invasive Line 1 10 Invasive Line 2 20 10 Intake, IV Titration 60.167 Amount Heparin Sod,Pork in 0.45% 60.167 NaCl 25,000 unit In 0.45 % NaCl 1 250ml.bag @ 10. 86 UNITS/KG/HR 10 mls/hr IV .Q24H MIGUEL Rx#: [id number] Oral 380 550 Output: Urine 930 2250 700 Post Void Residual 30 Other: # Voids 1 - Labs CBC & Chem 7: 06/22/21 05:13 06/22/21 05:13 Labs: Abnormal Lab Results - Last 24 Hours (Table) 06/21/21 06/22/21 06/22/21 Range/Units 12:37 05:13 05:13 RBC 4.08 L (4.30-5.90) m/uL Hgb 12.5 L (13.0-17.5) gm/dL Hct 38.8 L (39.0-53.0) % RDW 18.3 H (11.5-15.5) % PT 12.4 H (9.0-12.0) sec INR 1.2 H (<1.2) Sodium (137-145) mmol/L Total Bilirubin (0.2-1.3) mg/dL Total Protein (6.3-8.2) g/dL Albumin (3.5-5.0) g/dL Urine Blood Trace H (Negative) 06/22/21 Range/Units 05:13 RBC (4.30-5.90) m/uL Hgb (13.0-17.5) gm/dL Hct (39.0-53.0) % RDW (11.5-15.5) % PT (9.0-12.0) sec INR (<1.2) Sodium 132 L (137-145) mmol/L Total Bilirubin 2.3 H (0.2-1.3) mg/dL Total Protein 5.9 L (6.3-8.2) g/dL Albumin 3.3 L (3.5-5.0) g/dL Urine Blood (Negative) Assessment and Plan Time with Patient: Greater than 30
[2021-06-23] MEDS: HYDROcodone/APAP 5-325MG 1 EACH TAB PO PRN ×2 (04:17→20:16)
[2021-06-23] MEDS: FUROSEMIDE 10 MG/ML 10 ML VIAL IV SCH ×2 (05:17→17:11)
[2021-06-23 07:37] LABS: African American GFR (CKD) >90 (>60 ml/min/1.73 sqM); Anion Gap 10 mmol/L; Blood Urea Nitrogen 12 mg/dL (9-20); Calcium 8.3 mg/dL (8.4-10.2); Carbon Dioxide 24 mmol/L (22-30); Chloride 98 mmol/L (98-107); Glucose 99 mg/dL (74-99); Non-African American GFR(CKD) 82 (>60 ml/min/1.73 sqM); Potassium 3.5 mmol/L (3.5-5.1); Sodium 132 mmol/L (137-145)
[2021-06-23] MEDS: PANTOPRAZOLE 40 MG/10 ML VIAL IVP SCH (08:20)
--- NOTE | 2021-06-23 13:02 | P.PN ---
Subjective Progress Note Date: 06/23/21 HISTORY OF PRESENTING ILLNESS Patient is a pleasant 51-year-old male with a history of TIA approximately 20 years ago, tobacco abuse, recent diagnosis of systolic heart failure March 2021 with findings consistent with cardiac amyloidosis as well as found to have multiple myeloma. Initially had presented in March 2021 with episodes of shortness breath, chest discomfort, increased abdominal swelling and echo showed EF 30-35% with global hypokinesis as well as severe left ventricular thickness measuring 2.0 cm and mild to moderate tricuspid regurgitation with RVSP of 47 with a small pericardial effusion. EKG was noted to have low voltage and he had minimal troponin elevation at that time. Strain pattern showed "rouse on top" apical sparing concerning for cardiac amyloidosis. His free [place] light chain was 5.2 and his free lambda light chain was severely elevated at 80.8. Unfortunately he left AMA and did not have remainder of workup performed. He eventually follow up with a full service supervisor out of [facility] with cardiac MRI performed apparently consistent with cardiac amyloidosis. He has been seen a laborer chemical processing as well and was diagnosed with multiple myeloma however no treatm ent has been initiated as definitive diagnosis of cardiac amyloid was desired by laborer chemical processing. Apparently they are considering bone marrow transplant. He therefore was referred to heart failure specialist Dr. Li with [facility] and has an appointment this with recommendations for possible cardiac biopsy. Apparently he had a fat pad biopsy performed which was negative for amyloid. He additionally has some neuropathy in his lower extremity. He was initially placed on some heart failure regimen with lisinopril 5 mg daily, carvedilol 3.125 mg twice a day, Lasix 40 mg daily. He states he had a heart catheterization which showed only mild nonobstructive CAD. Unclear if he had a right heart catheterization at that time. Unfortunately he has had progressive mainly abdominal swelling as well as mild lower extremity swelling. His Lasix oral has not been working as well at home as it did previously. He presented secondary to symptoms of shortness breath and orthopnea over the last few days to weeks. Additionally he had a episode of feeling lightheaded and "woozy" and was having some chest pain and therefore decided come to the emergency department. Denies any recent fevers, chills, cough. Chest CT showed no pulmonary embolism with cardiomegaly and mild pericardial effusion. EKG shows low voltage with poor R-wave progression and T-wave inversions, flattening in the lateral leads. Troponin mildly elevated at 0.38, 0.40, 0.42. Similar to prior presentation in March previously 0.35. Blood pressures above more line 102/69. He did receive IV Lasix 40 mg with good urine output. 06/22/2021 Patient examined this morning at the bedside. Patient denies chest pain or pressure. He reports improvement in his shortness of breath. He states he related to the bathroom without any shortness of breath. He does report feeling short of breath when he is laying flat in bed. He remains on IV Lasix. Patient's blood pressure is on the lower side today with a systolic in the 80s. His carvedilol and lisinopril are currently on hold. 06/23/2021 Patient examined this morning at the bedside. Patient denies chest pain or pressure. He reports improvement in his shortness of breath. He remains on IV Lasix. Blood pressures remain on the lower side. PHYSICAL EXAMINATION Vital signs reviewed. CONSTITUTIONAL: No apparent distress. HEENT: Head is normocephalic. Pupils are equal, round. Sclerae anicteric. Mucous membranes of the mouth are moist. +JVD. No carotid bruit. CHEST EXAMINATION: Lungs are clear to auscultation. No chest wall tenderness is noted on palpation or with deep breathing. HEART EXAMINATION: Regular rate and rhythm. S1, S2 heard. No murmurs, gallops or rub. ABDOMEN: Soft, nontender. Positive bowel sounds. EXTREMITIES: 2+ peripheral pulses, 1+ lower extremity edema and no calf tenderness. NEUROLOGIC EXAMINATION: Patient is awake, alert and oriented x3. ASSESSMENT 1. Acute on chronic systolic heart failure 2. Nonischemic cardiomyopathy EF 30-35% with all of workup consistent with cardiac amyloidosis 3. Non-STEMI, type II mechanism related to heart failure, microvascular dysfunction from cardiac amyloid 4. Multiple myeloma elevated light chains 5. Small pericardial effusion, appears similar to previous echo 6. Episode of lightheadedness, concern of end-stage heart failure 7. 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 Continue to monitor blood pressure Patient undergoing workup for cardiac amyloid and scheduled to see heart failure specialist Dr. Li on . Patient will require right heart cath to assess CO/CI however this will likely be performed by advanced HF specialists.. Anticipate discharge home tomorrow and follow-up with his heart failure specialist on Further recommendations pending patient course Nurse practitioner note has been reviewed by physician. Signing provider agrees with the documented findings, assessment, and plan of care. Objective - Vital Signs Vital signs: Vital Signs Temp 97.2 F L 06/23/21 11:36 Pulse 78 06/23/21 11:36 Resp 18 06/23/21 11:36 BP 94/59 06/23/21 11:36 Pulse Ox 97 06/23/21 11:36 Intake & Output 06/22/21 06/23/21 06/23/21 18:59 06:59 18:59 Intake Total 1280 960 270 Output Total 1450 1375 1700 Balance -170 -415 -1430 Weight 93.5 kg 91.7 kg Intake: IV 20 10 Invasive Line 2 20 10 Oral 1260 960 260 Output: Urine 1450 1375 1700 - Labs CBC & Chem 7: 06/22/21 05:13 06/23/21 06:02 Labs: Abnormal Lab Results - Last 24 Hours (Table) 06/23/21 Range/Units 06:02 Sodium 132 L (137-145) mmol/L Calcium 8.3 L (8.4-10.2) mg/dL
[2021-06-23] MEDS ORDERED: POTASSIUM CHLORIDE ER 20 MEQ TAB.ER PO STA (14:19)
--- NOTE | 2021-06-23 14:23 | P.PN ---
Subjective Progress Note Date: 06/23/21 This is a pleasant 51 years old male with past medical history of GERD, syncope, heart disease and history of systolic heart failure. His smoker about 1/2-1 PPD Patient states he came to the hospital because of bloated Eris slightly getting worse over the last 3 months as well as leg swelling. Also patient has been feeling dizzy and he was out of it yesterday on and off, he felt like presyncope and actually he was told me he passed out for a few seconds twice yesterday. No evidence of seizure-like activities, Is also been complaining of from epigastric abdominal pain that states that it illustrates to the bottom, started yesterday about 7-8/10 in severity, felt like a knife with no vomiting, he has normal bowel movement last one was He denies dysuria or urgency, no headache, no weakness or numbness, blurred vision or swallowing problem. Also patient has been complaining of from epigastric abdominal pain radiating straight to the bottom as he states pain started yesterday, currently 7-8/10, felt like a knife. No vomiting. Last bowel movement was yesterday and was normal. Also pat also has been complaining of from central chest pain, nonradiating, started yesterday about 5/10 in severity, felt like someone sitting on his chest. Nonsuicidal having dry cough. No dyspnea. He smokes about 2 cigarettes per day he was consulted and he does not want nicotine patch, he denies alcohol or illicit drugs Neck ultrasound is negative for DVT Patient is afebrile, blood pressure is 102/69. He is saturating 95% on room air. Tarsal vitals are stable. labs reviewed, hemoglobin 12.7, rest of CBC is unremarkable. INR is 1.2. Sodium 1:30. Creatinine 1.0. Stress of her electrolytes and BMP is unremarkable. Bilirubin slightly elevated 2.1, liver enzymes not elevated. Troponin is elevated 0.384. ProBNP is also elevated 10 500. D-dimer slightly elevated 1.1 EKG showing his normal sinus rhythm at 80 with low voltage and poor R-wave progression. QTC 417. No significant ST-T changes. CTA of the chest: No pulmonary infiltrate or consolidation. Moderate abdominal ascites. No evidence of pulmonary embolism cardiomegaly with pericardial effusion. Mild mediastinal and bronchial adenopathy Chest x-ray: Mild cardiomegaly. No change On admission patient received morphine only. Also patient started by heparin drip by polisher dial Recent echo: ejection fraction of 30-35% on 03/3106/22/2021 Today patient is feeling less short of breath, was able to tolerate shower. Shortness of breath is worse when he is lying flat. Abdominal edema is improving. Lower extremity edema is also improving, now more so on the right than the left. Main complaint is feeling fatigued with low appetite. Labs today showing sodium of 132, total bili 2.3. Albumin 3.3. Continues on IV lasix 80 mg Q12. He is negative 2.9 Liters in the past 24 hours. Blood pressure on the lower side today 80/50's, lisinopril has been placed on hold in addition to coreg. He is being followed closely by cardiology services. Brain CT completed yesterday negative for acute. No further episodes of altered mentation. Abdominal ultrasound completed yesterday showing scattered mild to moderate abdominal ascites 06/23/2021 Patient evaluated today resting in bed. Overall continues to improve clinically. Today his shortness of breath has improved at rest, he is able to be more flat lying. Abdominal edema is improving as well. He does state he has a full feeling. Discussed ultrasound results with patient opted to not undergo paracentesis as he feels he continues to improve with lasix. Plan is to receive one more day of IV lasix and patient will be discharged tomorrow. He has a follow up with his clinical trials specialist . Discussed starting cymbalata for peripheral neuropathy, patient agreeing to trial. Can continue with norco as well for pain as needed. Continues on IV lasix 80 mg Q12 with negative 2.3 L off in the last 24 hours. Sodium stable today at 132, potassium 3.5, will give oral supplementation. Blood pressure remains on the lower side at 94/59, however patient states that his headache has improved, and he also denies dizziness or lightheadedness at rest and with ambulation. He is being followed closely by cardiology services. Review of Systems Constitutional: Reports fatigue. denied any fever. Cardio vascular: denied any chest pain, palpitations Gastrointestinal: denied any nausea, vomiting, diarrhea Pulmonary: Reports shortness of breath, improving. Denies cough Neurologic denied any new focal deficits All inpatient medications were reviewed and appropriate changes in these medic ations as dictated in the interval history and assessment and plan. PHYSICAL EXAMINATION: GENERAL: The patient is alert and oriented x3, not in any acute distress. Well developed, well nourished. HEENT: Pupils are round and equally reacting to light. EOMI. No scleral icterus. No conjunctival pallor. Normocephalic, atraumatic. No pharyngeal erythema. No thyromegaly. CARDIOVASCULAR: S1 and S2 present. No murmurs, rubs, or gallops. +JVD. PULMONARY: Bibasilar crackles, no wheezing noted. ABDOMEN: Soft, nontender, nondistended, normoactive bowel sounds. No palpable organomegaly. Abdominal edema improving. MUSCULOSKELETAL: No joint swelling or deformity. EXTREMITIES: No cyanosis, clubbing. Peripheral edema improved. NEUROLOGICAL: Gross neurological examination did not reveal any focal deficits. SKIN: No rashes. Assessment and plan Assessment Acute on chronic systolic CHF Nonischemic cardiomypoathy with history of ejection fraction of 30-35% on 03/31, work up so far consistent with cardiac amyloidosis, scheduled to see specialist on regarding biopsy Elevated troponins secondary to Type 2 NSTEMI related to cardiac amyloid Ascites secondary to hepatic congestion Hypervolemic hyponatremia, improving Hypokalemia from diuresis, replaced with oral supplementation Presyncope, per patient passed out twice for 2 seconds each time, concern for end-stage heart failure Elevated d-dimer with negative PE and DVT on CTA and venous Doppler respectively Multiple myeloma has not undergone treatment yet Peripheral neuropathy History of GERD History of syncope GI prophylaxis DVT Prophylaxis Plan Continue IV lasix, monitor intake and output Coreg, Lisinopril on hold for hypotension Start cymbalta Continue neuro checks Pain management Cardiology following patient closely Prognosis guarded The impression and plan of care has been dictated by Jaylin Gilmore Nurse Practitioner as directed. Dr. Jeanmarie MD I have performed a history and physical examination and medical decision making of this patient, discussed the same with the dictator, and agree with the dictators assessment and plan as written, documented as a scribe. Based on total visit time, I have performed more than 50% of this visit. Objective - Vital Signs Vital signs: Vital Signs Temp 97.2 F L 06/23/21 11:36 Pulse 78 06/23/21 11:36 Resp 18 05/17/22 11:36 BP 94/59 06/23/21 11:36 Pulse Ox 97 06/23/21 11:36 Intake & Output 06/22/21 06/23/21 06/23/21 18:59 06:59 18:59 Intake Total 1280 960 270 Output Total 1450 1375 1700 Balance -170 -415 -1430 Weight 93.5 kg 91.7 kg Intake: IV 20 10 Invasive Line 2 20 10 Oral 1260 960 260 Output: Urine 1450 1375 1700 - Labs CBC & Chem 7: 06/22/21 05:13 06/23/21 06:02 Labs: Abnormal Lab Results - Last 24 Hours (Table) 06/23/21 Range/Units 06:02 Sodium 132 L (137-145) mmol/L Calcium 8.3 L (8.4-10.2) mg/dL Assessment and Plan Time with Patient: Less than 30
[2021-06-23] MEDS: DULoxetine HCL 30 MG CAPSULE.DR PO SCH (17:11)
[2021-06-23] MEDS: ATORVASTATIN 40 MG TAB PO SCH (20:16)
[2021-06-24] MEDS: FUROSEMIDE 10 MG/ML 10 ML VIAL IV SCH (06:14)
[2021-06-24] MEDS: HYDROcodone/APAP 5-325MG 1 EACH TAB PO PRN (06:18)
[2021-06-24] MEDS ORDERED: PANTOPRAZOLE 40 MG TABLET PO SCH (07:30)
[2021-06-24] MEDS: DULoxetine HCL 30 MG CAPSULE.DR PO SCH (09:35)
[2021-06-24 10:07] VITALS: BP 93/58; PULSE 83; RESP 17; TEMP 98.1
--- NOTE | 2021-06-24 10:55 | P.PN ---
Subjective Progress Note Date: 06/24/21 HISTORY OF PRESENTING ILLNESS Patient is a pleasant 51-year-old male with a history of TIA approximately 20 years ago, tobacco abuse, recent diagnosis of systolic heart failure March 2021 with findings consistent with cardiac amyloidosis as well as found to have multiple myeloma. Initially had presented in March 2021 with episodes of shortness breath, chest discomfort, increased abdominal swelling and echo showed EF 30-35% with global hypokinesis as well as severe left ventricular thickness measuring 2.0 cm and mild to moderate tricuspid regurgitation with RVSP of 47 with a small pericardial effusion. EKG was noted to have low voltage and he had minimal troponin elevation at that time. Strain pattern showed "rouse on top" apical sparing concerning for cardiac amyloidosis. His free [place] light chain was 5.2 and his free lambda light chain was severely elevated at 80.8. Unfortunately he left AMA and did not have remainder of workup performed. He eventually follow up with a underwriting support manager out of [facility] with cardiac MRI performed apparently consistent with cardiac amyloidosis. He has been seen a fur liner as well and was diagnosed with multiple myeloma however no treatm ent has been initiated as definitive diagnosis of cardiac amyloid was desired by fur liner. Apparently they are considering bone marrow transplant. He therefore was referred to heart failure specialist Dr. Li with [facility] and has an appointment this with recommendations for possible cardiac biopsy. Apparently he had a fat pad biopsy performed which was negative for amyloid. He additionally has some neuropathy in his lower extremity. He was initially placed on some heart failure regimen with lisinopril 5 mg daily, carvedilol 3.125 mg twice a day, Lasix 40 mg daily. He states he had a heart catheterization which showed only mild nonobstructive CAD. Unclear if he had a right heart catheterization at that time. Unfortunately he has had progressive mainly abdominal swelling as well as mild lower extremity swelling. His Lasix oral has not been working as well at home as it did previously. He presented secondary to symptoms of shortness breath and orthopnea over the last few days to weeks. Additionally he had a episode of feeling lightheaded and "woozy" and was having some chest pain and therefore decided come to the emergency department. Denies any recent fevers, chills, cough. Chest CT showed no pulmonary embolism with cardiomegaly and mild pericardial effusion. EKG shows low voltage with poor R-wave progression and T-wave inversions, flattening in the lateral leads. Troponin mildly elevated at 0.38, 0.40, 0.42. Similar to prior presentation in March previously 0.35. Blood pressures above more line 102/69. He did receive IV Lasix 40 mg with good urine output. 06/22/2021 Patient examined this morning at the bedside. Patient denies chest pain or pressure. He reports improvement in his shortness of breath. He states he related to the bathroom without any shortness of breath. He does report feeling short of breath when he is laying flat in bed. He remains on IV Lasix. Patient's blood pressure is on the lower side today with a systolic in the 80s. His carvedilol and lisinopril are currently on hold. 06/23/2021 Patient examined this morning at the bedside. Patient denies chest pain or pressure. He reports improvement in his shortness of breath. He remains on IV Lasix. Blood pressures remain on the lower side. 06/24/2021 Patient examined this morning at the bedside. Patient denies chest pain or pressure. Denies shortness of breath. He remains on IV Lasix. Kidney function remained stable. PHYSICAL EXAMINATION Vital signs reviewed. CONSTITUTIONAL: No apparent distress. HEENT: Head is normocephalic. Pupils are equal, round. Sclerae anicteric. Mucous membranes of the mouth are moist. +JVD. No carotid bruit. CHEST EXAMINATION: Lungs are clear to auscultation. No chest wall tenderness is noted on palpation or with deep breathing. HEART EXAMINATION: Regular rate and rhythm. S1, S2 heard. No murmurs, gallops or rub. ABDOMEN: Soft, nontender. Positive bowel sounds. EXTREMITIES: 2+ peripheral pulses, 1+ lower extremity edema and no calf tenderness. NEUROLOGIC EXAMINATION: Patient is awake, alert and oriented x3. ASSESSMENT 1. Acute on chronic systolic heart failure 2. Nonischemic cardiomyopathy EF 30-35% with all of workup consistent with cardiac amyloidosis 3. Non-STEMI, type II mechanism related to heart failure, microvascular dysfunction from cardiac amyloid 4. Multiple myeloma elevated light chains 5. Small pericardial effusion, appears similar to previous echo 6. Episode of lightheadedness, concern of end-stage heart failure 7. 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 Li tomorrow. Patient will likely require right sided heart cath with his primary underwriting support manager. Patient may be discharged home today from a cardiac standpoint. Patient instructed to continue to hold his lisinopril and carvedilol at discharge secondary to borderline hypotension. Patient also instructed to discontinue his Lasix. Patient will be started on Bumex 2 mg daily. Further recommendations pending patient course Nurse practitioner note has been reviewed by physician. Signing provider agrees with the documented findings, assessment, and plan of care. Objective - Vital Signs Vital signs: Vital Signs Temp 98.1 F 06/24/21 08:00 Pulse 83 06/24/21 08:00 Resp 17 06/24/21 08:00 BP 93/58 06/24/21 08:00 Pulse Ox 96 06/24/21 08:00 Intake & Output 06/23/21 06/24/21 06/24/21 18:59 06:59 18:59 Intake Total 1140 240 Output Total 1825 1125 Balance -685 -885 Weight 89 kg Intake: IV 20 Invasive Line 2 20 Oral 1120 240 Output: Urine 1825 1125 - Labs CBC & Chem 7: 06/22/21 05:13 06/23/21 06:02
--- NOTE | 2021-06-24 17:05 | P.DS ---
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, scheduled to see specialist on regarding biopsy Elevated troponins secondary to Type 2 NSTEMI related to cardiac amyloidosis Ascites secondary to hepatic congestion Hypervolemic hyponatremia, improving Hypokalemia from diuresis, replaced with oral supplementation Presyncope, per patient passed out twice for 2 seconds each time, concern for end-stage heart failure Elevated d-dimer with negative PE and DVT on CTA and venous Doppler respectively Multiple myeloma has not undergone treatment yet Peripheral neuropathy History of GERD History of syncope Discharge Disposition Patient is stable for discharge home. Guarded prognosis. He will follow up with his rn cardiac tomorrow. Discontinue lisinopril, coreg, furosemide. Continue with oral bumex. Cymbalta has been added for neuropathic pain. Hospital Course This is a pleasant 51 years old male with past medical history of GERD, syncope, heart disease and history of systolic heart failure. He is currently undergoing evaluation for cardiac amyloidosis secondary to multiple myeloma. Multiple myeloma is a recent diagnosis. He is following up with a rn cardiac on tuesday for cardiac biopsy. He has not started treatment for multiple myeloma as of yet. Patient states he came to the hospital because of abdominal bloating slightly getting worse over the last 3 months as well as leg swelling and shortness of breath. He also has complaints of dizziness on and off and felt like he was blacking out. He denies seizure like activity. He reports central chest pain, nonradiating, started yesterday about 5/10 in severity, felt like someone sitting on his chest. He denies fever, chills. He smokes about 2 cigarettes per day he was consulted and he does not want nicotine patch, he denies alcohol or illicit drugs. Neck ultrasound is negative for DVT Patient is afebrile, blood pressure is 102/69. He is saturating 95% on room air. labs reviewed, hemoglobin 12.7, rest of CBC is unremarkable. INR is 1.2. Sodium 130. Creatinine 1.0. The rest of electrolytes and BMP is unremarkable. Bilirubin slightly elevated 2.1, liver enzymes not elevated. Troponin is elevated 0.384, 0.4.08, 0.428. ProBNP is also elevated 10 500. D- dimer slightly elevated 1.1 EKG showing his normal sinus rhythm at 80 with low voltage and poor R-wave progression. QTC 417. No significant ST-T changes. CTA of the chest: No pulmonary infiltrate or consolidation. Moderate abdominal ascites. No evidence of pulmonary embolism cardiomegaly with pericardial effusion. Mild mediastinal and bronchial adenopathy Chest x-ray: Mild cardiomegaly. No change Patient was admitted to the hospital with consult placed to cardiology services, given morphine and started on heparin gtt. He underwent brain CT which was negative for acute changes Venous Doppler was negative for DVT bilaterally Abdominal ultrasound showing mild to moderate ascites. Patient was started on IV Lasix 80 mg twice a day, he has lost about 7 pounds total. 06/24/2021 Patient evaluated by cardiology and was cleared patient for discharge. He currently denies abdominal bloating states that his abdominal edema is much improved, peripheral edema has resolved. Lungs are clearing, he is no longer short of breath when lying flat. He is instructed to hold lasix, carvedilol, coreg. He will be discharged on oral bumex. Patient is given a scale for daily weights. He is instructed to monitor trend and also monitor blood pressure daily and bring logs to follow up Dr Diaz. Pt is instructed to monitor for weight gain, 2-3 lbs overnight 5 lbs in 1 week. Return to ER for returning symptoms, shortness of breath. He denies chest pain, chest pressure, shortness of breath at rest. Denies abdominal pain, denies nausea vomiting, diarrhea. No further episodes of dizziness, lightheadedness. Lungs are clear, S1 S2 auscultated. Focal neurological exam is negative. Most recent labs showing white count 5.1, hgb 12.5, INR 1.2, sodium 132, calcium 8.3. Vitals include temp 98.1, heart rate 83, blood pressure 93/58, 96% on room air. Please see medication reconciliation for list of current medications. Thank you for allowing us to participate in the care of this patient. The impression and plan of care has been dictated by Jaylin Gilmore Nurse Practitioner as directed. Dr. Jeanmarie MD I have performed a history and physical examination and medical decision making of this patient, discussed the same with the dictator, and agree with the dictators assessment and plan as written, documented as a scribe. Based on total visit time, I have performed more than 50% of this visit. Patient Condition at Discharge: Fair Plan - Discharge Summary Discharge Rx Participant: No New Discharge Prescriptions: New Acetaminophen Tab [Tylenol] 650 mg PO Q6HR PRN tab PRN Reason: Fever And/ Or Pain Bumetanide [BUMEX] 2 mg PO DAILY #90 tab DULoxetine HCL [Cymbalta] 30 mg PO DAILY #30 cap HYDROcodone/APAP 5-325MG [[place] 5-325] 1 each PO Q8HR PRN 2 Days #6 tab PRN Reason: Pain Continue Zolpidem [Ambien] 5 mg PO HS Atorvastatin [Lipitor] 40 mg PO HS Aspirin EC [Ecotrin Low Dose] 81 mg PO DAILY Discontinued lisinopriL [Zestril] 5 mg PO DAILY Furosemide [Lasix] 40 mg PO DAILY carvediloL [Coreg] 3.125 mg PO BID Discharge Medication List Aspirin EC [Ecotrin Low Dose] 81 mg PO DAILY 06/21/21 [History] Atorvastatin [Lipitor] 40 mg PO HS 06/21/21 [History] Zolpidem [Ambien] 5 mg PO HS 06/21/21 [History] Acetaminophen Tab [Tylenol] 650 mg PO Q6HR PRN tab 06/24/21 [Rx] Bumetanide [BUMEX] 2 mg PO DAILY #90 tab 06/24/21 [Rx] DULoxetine HCL [Cymbalta] 30 mg PO DAILY #30 cap 06/24/21 [Rx] HYDROcodone/APAP 5-325MG [[place] 5-325] 1 each PO Q8HR PRN 2 Days #6 tab 06/24/21 [Rx] Follow up Appointment(s)/Referral(s): Xin Mills MD [Primary Care Provider] - 1-2 days (July 01, 5:00) Patient Instructions/Handouts: Heart Failure (DC) Activity/Diet/Wound Care/Special Instructions: Patient has a follow up tomorrow with his after school tutor, also has follow up at the end of the month with specialist at [facility] in [place]. Do not drink or drive while using norco tablets for pain. When changing positions, sit first before standing to avoid dizziness or lightheadedness. Hold lisinopril and coreg on discharge. Discharge Disposition: HOME SELF-CARE
== END 2021-06-24 11:25 | disposition home or self-care (01) | DRG 281 ==
LOC: EC 23:23 → 3SCARD 06-21 06:10
PROVIDERS: ADMIT Internal Medicine; ATTEND Internal Medicine
DX: I50.23 Acute on chronic systolic (congestive) heart failure (principal); I21.A1 Myocardial infarction type 2; C90.00 Multiple myeloma not having achieved remission; E85.4 Organ-limited amyloidosis; E87.1 Hypo-osmolality and hyponatremia; I31.3 Pericardial effusion (noninflammatory); I43 Cardiomyopathy in diseases classified elsewhere; R18.8 Other ascites; K21.9 Gastro-esophageal reflux disease without esophagitis; R42 Dizziness and giddiness; E87.6 Hypokalemia; F17.210 Nicotine dependence, cigarettes, uncomplicated; G62.9 Polyneuropathy, unspecified; E87.70 Fluid overload, unspecified; I07.1 Rheumatic tricuspid insufficiency; I25.10 Atherosclerotic heart disease of native coronary artery without angina pectoris; K76.1 Chronic passive congestion of liver; Z79.82 Long term (current) use of aspirin; Z79.899 Other long term (current) drug therapy; Z86.73 Personal history of transient ischemic attack (TIA), and cerebral infarction without residual deficits; Z90.49 Acquired absence of other specified parts of digestive tract
CPT/HCPCS: 36415; 70450; 71046; 71275; 76700; 80048; 80053; 81001; 83735; 83880; 84484; 85025; 85379; 85610; 85730; 93005; 93970

== ENCOUNTER 2021-07-09 10:14 | Inpatient (IN) | payer BC ==
[2021-07-09] MEDS ORDERED: SODIUM CHLORIDE 0.9% 2,000 ML IV STA (10:35)
[2021-07-09] MEDS ORDERED: ONDANSETRON 4 MG/2 ML VIAL IVP STA (10:43)
[2021-07-09] MEDS ORDERED: SODIUM CHLORIDE 0.9% 500 ML 500 ML IV ONE (10:43)
[2021-07-09] MEDS ORDERED: HYDROmorphone 0.5 MG/0.5 ML SYRINGE IVP STA (10:53)
[2021-07-09 11:02] LABS: Anisocytosis Slight; Basophils # (A) 0.1 k/uL (0-0.2); Basophils % (A) 1 %; Eosinophils % (A) 0 %; HCT 43.1 % (39.0-53.0); HGB 14.3 gm/dL (13.0-17.5); Lymphocytes % (A) 12 %; MCHC 33.2 g/dL (31.0-37.0); MCV 93.4 fL (80.0-100.0); Mean Platelet Volume 9.6; Monocytes # (A) 0.4 k/uL (0-1.0); Monocytes % (A) 5 %; Neutrophils # (A) 6.2 k/uL (1.3-7.7); Neutrophils % (A) 81 %; Platelet Count 230 k/uL (150-450); RBC 4.62 m/uL (4.30-5.90); RDW 18.2 % (11.5-15.5); WBC 7.7 k/uL (3.8-10.6)
[2021-07-09 11:10] LABS: Albumin 4.1 g/dL (3.5-5.0); Calcium 9.4 mg/dL (8.4-10.2); Potassium 3.8 mmol/L (3.5-5.1); Total Bilirubin 3.3 mg/dL (0.2-1.3); Total Protein 7.4 g/dL (6.3-8.2)
--- NOTE | 2021-07-09 12:01 | CT ---
EXAMINATION TYPE: CT abdomen pelvis w con DATE OF EXAM: 07/09/2021 COMPARISON: Correlation ultrasound 06/21/2021 HISTORY: 51-year-old male Generalized abdominal pain and constipation, hx of multiple myeloma. TECHNIQUE: Contiguous axial scanning of the abdomen and pelvis following administration of 80 ml Isov ue 300 IV contrast. Delayed images through the kidneys and coronal/sagittal reconstructions performe d. CT DLP: 1030.5 mGycm Automated exposure control for dose reduction was used. FINDINGS: Heart upper limits of normal in size. Ongoing small to moderate-sized pericardial effusion measuring up to 1.7 cm thick. Lung bases clear without pleural effusion. Mild heterogeneity of the hepatic parenchyma. No focal lesion seen. Poststernotomy clips. No biliary ductal dilatation. Portal venous system is patent. Adrenal glands, spleen, pancreas within normal limits. A few left-sided renal cortical cysts, largest measuring 2.2 cm. A lateral cortical hypodensity right kidney measures 2.7 cm craniocaudal and 1.7 cm AP. Questionable internal enhancement. Note that no discrete lesion was identified on the patient's recent abdominal u ltrasound. No excretion of contrast from either kidney on the delayed kidney images. Generalized mesenteric edema. Moderate abdominal ascites. Wall thickening of the stomach likely due t o collapsed state. No dilated small bowel or free air. Mild stool in the left side of the colon. No pericolonic inflammatory change clearly seen. Normal darlyn endix. Minimal diverticular change, particularly on the right side of the colon. Mild perivesicular fat stranding is nonspecific. Prostate gland measures 3. Centimeters wide. Ascites fluid continues into the pelvis. No pelvic lymphadenopathy seen. Bones: Mild degenerative disc disease L4-L5 and L5-S1. Prominent anterior disc bulge at L4-L5. IMPRESSION: 1. NO EXCRETION OF CONTRAST ON THE DELAYED KIDNEY IMAGES. FINDINGS MAY RELATE TO THE TIMING OF THE SC AN. CORRELATE WITH PATIENT'S BUN/CREATININE TO EXCLUDE ACUTE KIDNEY INJURY. 2. A 2.7 X 1.7 CM INDETERMINATE CORTICAL LESION LATERAL RIGHT KIDNEY. A COMPLICATED CYST IS POSSIBLE THOUGH THERE IS QUESTIONABLE ENHANCEMENT. RECOMMEND 2 TO 3-WEEK FOLLOW-UP TARGETED ULTRASOUND TO REAS SESS. IF STILL NOT SEEN BY ULTRASOUND, THREE-MONTH FOLLOW-UP CT. 3. MODERATE ABDOMINOPELVIC ASCITES. CONTINUED SMALL TO MODERATE PERICARDIAL EFFUSION. 4. SLIGHTLY HETEROGENEOUS APPEARANCE TO THE LIVER MAY BE DUE TO SCAN TIMING. CORRELATE WITH LFT's TO EXCLUDE NONSPECIFIC HEPATOCELLULAR DISEASE. 5. MILD PERIVESICULAR FAT STRANDING AROUND THE BLADDER. CORRELATE TO EXCLUDE CYSTITIS.
--- NOTE | 2021-07-09 12:24 | ED ---
Abdominal Pain HPI - General Chief Complaint: Abdominal Pain Stated Complaint: possible bowel obstruction Time Seen by Provider: 07/09/21 10:26 Source: patient, family, RN notes reviewed Mode of arrival: ambulatory Limitations: no limitations - History of Present Illness Initial Comments: This a 51-year-old male presents emergency Department with chief complaint of abdominal pain. Patient states that increase abdominal pain or increasing vomiting. Patient states that he has not had any diaphoresis felt constipated. Patient does have multiple myeloma, amyloidosis. Patient states she has a history of CHF is on Bumex daily. Patient denies any dysuria or hematuria noted, patient had prior cholecystectomy denies any right quadrant abdominal pain denies any right flank pain. Patient has no chest pain or shortness breath. - Related Data Home Medications Medication Instructions Recorded Confirmed Aspirin EC [Ecotrin Low Dose] 81 mg PO DAILY 06/21/21 06/21/21 Atorvastatin [Lipitor] 40 mg PO HS 06/21/21 06/21/21 Zolpidem [Ambien] 5 mg PO HS 06/21/21 06/21/21 Previous Rx's Medication Instructions Recorded Acetaminophen Tab [Tylenol] 650 mg PO Q6HR PRN tab 06/24/21 Bumetanide [BUMEX] 2 mg PO DAILY #90 tab 06/24/21 DULoxetine HCL [Cymbalta] 30 mg PO DAILY #30 cap 06/24/21 HYDROcodone/APAP 5-325MG [[place] 1 each PO Q8HR PRN 2 Days #6 tab 06/24/21 5-325] Allergies Allergy/AdvReac Type Severity Reaction Status Date / Time strawberry AdvReac Rash/Hives Verified 07/09/21 10:22 Review of Systems ROS Statement: Those systems with pertinent positive or pertinent negative responses have been documented in the HPI. ROS Other: All systems not noted in ROS Statement are negative. Past Medical History Past Medical History: Cancer, Heart Failure, GERD/Reflux, Syncope Additional Past Medical History / Comment(s): Multiple myleoma dx a month ago, Cardiac Amylodosis History of Any Multi-Drug Resistant Organisms: None Reported Past Surgical History: Cholecystectomy, Heart Catheterization Past Anesthesia/Blood Transfusion Reactions: No Reported Reaction Past Psychological History: No Psychological Hx Reported Smoking Status: Current every day smoker Past Alcohol Use History: None Reported Past Drug Use History: None Reported General Exam Limitations: no limitations General appearance: alert, in no apparent distress Head exam: Present: atraumatic, normocephalic, normal inspection Eye exam: Present: normal appearance, PERRL, EOMI. Absent: scleral icterus, conjunctival injection, periorbital swelling ENT exam: Present: normal exam, normal oropharynx, mucous membranes moist Neck exam: Present: normal inspection, full ROM. Absent: tenderness, meningismus, lymphadenopathy Respiratory exam: Present: normal lung sounds bilaterally. Absent: respiratory distress, wheezes, rales, rhonchi, stridor Cardiovascular Exam: Present: regular rate, normal rhythm, normal heart sounds. Absent: systolic murmur, diastolic murmur, rubs, gallop, clicks GI/Abdominal exam: Present: soft, distended, tenderness, normal bowel sounds. Absent: guarding, rebound, rigid Back exam: Absent: CVA tenderness (R), CVA tenderness (L) Neurological exam: Present: alert Skin exam: Present: warm, dry, intact, normal color. Absent: rash Course Vital Signs 07/09/21 07/09/21 07/09/21 10:22 11:38 12:42 Temperature 97.7 F Pulse Rate 64 88 86 Respiratory 16 18 18 Rate Blood Pressure 92/66 88/61 87/61 O2 Sat by Pulse 97 99 99 Oximetry Medical Decision Making - Medical Decision Making 51-year-old male presented for abdominal discomfort, increasing nausea vomiting. Patient's found to have acute kidney injury, hyponatremia. Patient has been overdiuresis. He is having increasing abdominal pain related to ascites. Patient CT questions possible urinary tract infection I discussed the case with Dr. Bella who accepts admission recommends given patient antibiotics pending urinalysis. - Lab Data Result diagrams: 07/09/21 10:49 07/09/21 10:49 Lab Results 07/09/21 07/09/21 07/09/21 Range/Units 10:49 10:49 10:49 WBC 7.7 (3.8-10.6) k/uL RBC 4.62 (4.30-5.90) m/uL Hgb 14.3 (13.0-17.5) gm/dL Hct 43.1 (39.0-53.0) % MCV 93.4 (80.0-100.0) fL MCH 31.0 (25.0-35.0) pg MCHC 33.2 (31.0-37.0) g/dL RDW 18.2 H (11.5-15.5) % Plt Count 230 (150-450) k/uL MPV 9.6 Neutrophils % 81 % Lymphocytes % 12 % Monocytes % 5 % Eosinophils % 0 % Basophils % 1 % Neutrophils # 6.2 (1.3-7.7) k/uL Lymphocytes # 1.0 (1.0-4.8) k/uL Monocytes # 0.4 (0-1.0) k/uL Eosinophils # 0.0 (0-0.7) k/uL Basophils # 0.1 (0-0.2) k/uL Anisocytosis Slight Sodium 124 L (137-145) mmol/L Potassium 3.8 (3.5-5.1) mmol/L Chloride 87 L (98-107) mmol/L Carbon Dioxide 30 (22-30) mmol/L Anion Gap 7 mmol/L BUN 31 H (9-20) mg/dL Creatinine 1.37 H (0.66-1.25) mg/dL Est GFR (CKD-EPI)AfAm 69 (>60 ml/min/1.73 sqM) Est GFR (CKD-EPI)NonAf 60 (>60 ml/min/1.73 sqM) Glucose 102 H (74-99) mg/dL Plasma Lactic Acid Jovon 1.3 (0.7-2.0) mmol/L Calcium 9.4 (8.4-10.2) mg/dL Total Bilirubin 3.3 H (0.2-1.3) mg/dL AST 34 (17-59) U/L ALT 18 (4-49) U/L Alkaline Phosphatase 110 (38-126) U/L Total Protein 7.4 (6.3-8.2) g/dL Albumin 4.1 (3.5-5.0) g/dL Amylase 49 (30-110) U/L Lipase 49 (23-300) U/L Disposition Clinical Impression: Hyponatremia, SHANNON (acute kidney injury), Ascites Disposition: ADMITTED IP TO THIS [facility] Condition: Fair Referrals: Xin Mills MD [Primary Care Provider] - 1-2 days Time of Disposition: 12:24
[2021-07-09] MEDS: SODIUM CHLORIDE 0.9% 1,000 ML IV SCH (12:41)
[2021-07-09] MEDS ORDERED: NALOXONE 0.4 MG/ML 1 ML VIAL IV PRN (12:56)
[2021-07-09] MEDS: HYDROmorphone 0.5 MG/0.5 ML SYRINGE IVP PRN ×4 (13:47→23:41)
[2021-07-09] MEDS ORDERED: HYDROcodone/APAP 5-325MG 1 EACH TAB PO PRN (16:56)
[2021-07-09] MEDS ORDERED: ALPRAZolam 0.25 MG TAB PO PRN (17:00)
[2021-07-09] MEDS: ONDANSETRON 4 MG/2 ML VIAL IVP PRN (17:24)
--- NOTE | 2021-07-09 17:27 | HP ---
HISTORY AND PHYSICAL CHIEF COMPLAINTS: Abdominal pain and possible bowel obstruction. HISTORY OF PRESENT ILLNESS: This 51-year-old gentleman with a past medical history of CHF, possible multiple myeloma and recently diagnosed cardiac amyloidosis, being followed by Dr. Mills in the outpatient setting, was complaining of abdominal discomfort which is increasing with some vomiting. The patient was on Bumex. The patient came to [facility] with concerns about bowel obstruction. The patient also was rather sweaty. Creatinine was elevated to 1.37. CT scan of the abdomen and pelvis was done in the ER which was reviewed personally by me; it showed multiple findings, including renal cortical lesion, moderate abdominal ascites, and some pericardial effusion also. There is no history of any fever, rigor or chills at this time. Empiric antibiotics initiated. PAST MEDICAL HISTORY: History of CHF, GERD, syncope, cardiac amyloidosis. HOME MEDICATIONS: Home medications reviewed. They include Zestril 2.5. Doses are reviewed. ALLERGIES: STRAWBERRY. FAMILY HISTORY: No history of heart disease or strokes in the family. SOCIAL HISTORY: History of smoking. REVIEW OF SYSTEMS: Fourteen-point review of systems negative except as mentioned earlier. PHYSICAL EXAMINATION: Pulse is 72, blood pressure 99/73, respiration 18, temperature 97.3, pulse ox ntd on room air. HEENT: Conjunctivae normal. NECK: No jugular venous distention. CARDIOVASCULAR: S1, S2 muffled. RESPIRATION: Breath sounds diminished at the bases. No rhonchi. No crackles. ABDOMEN: Soft. Mild diffuse distention. Non-tender. No mass palpable. LEGS: No edema. No swelling. NERVOUS SYSTEM: Higher functions as mentioned earlier. Moves all 4 limbs. No focal motor or sensory deficit. LYMPHATICS: No lymph node palpable in neck, axillae or groin. SKIN: No ulcer, rash, bleeding. JOINTS: No active deforming arthropathy. LABS: Reviewed. They include WBC 7.7, sodium 124 and creatinine 1.37. ASSESSMENT: 1. Abdominal pain and vomiting. Rule out bowel obstruction. Rule out sepsis. 2. Hyponatremia. 3. Acute renal failure. 4. Cardiac amyloidosis. 5. Possible multiple myeloma. 6. History of gastroesophageal reflux disease. RECOMMENDATIONS AND DISCUSSION: In this 51-year-old gentleman who presented with multiple complex medical issues, we will monitor the patient closely. I would recommend empiric antibiotics and obtain cultures. Cardiology consultation. Surgical evaluation for abdominal distention . Guarded prognosis because of multiple complex medical conditions. Further recommendations to follow. Resume the home medications. A copy of this dictation is being forwarded to Dr. Mills, who is the primary physician. LETICIA / ROWANN: [id number] / MTDD
[2021-07-09] MEDS: NICOTINE 14MG/24HR PATCH TRANSDERM SCH (17:35)
--- NOTE | 2021-07-09 17:57 | XR ---
EXAMINATION TYPE: XR abdomen 2V DATE OF EXAM: 07/09/2021 5:18 PM INDICATION: Patient age:Male; 51 years old; Reason for study: abd distension; COMPARISON: None. TECHNIQUE: Supine and upright radiographic view of the abdomen was obtained. FINDINGS: The bowel gas pattern is nonspecific without dilated loops of small or large bowel. The oss eous structures are intact. No abnormal calcifications are present. Fecal material and gas are demon strated throughout the colon and rectum. Cholecystectomy clips are present. Large amount of excreted IV contrast is seen within the bladder. IMPRESSION: Nonspecific bowel gas pattern without radiographic evidence for acute process.
[2021-07-09 18:06] LABS: INR 1.1 (<1.2); Prothrombin Time 11.8 sec (9.0-12.0)
[2021-07-09] MEDS: METOCLOPRAMIDE 5 MG/ML 2 ML VIAL IVP PRN (21:44)
[2021-07-10] MEDS: ONDANSETRON 4 MG/2 ML VIAL IVP PRN ×3 (01:49→20:43)
[2021-07-10 02:15] LABS: Appearance,Urine Clear (Clear); Bilirubin,Urine Negative (Negative); Blood,Urine Negative (Negative); Color,Urine Yellow; Glucose,Urine (UA) Negative (Negative); Ketones,Urine Negative (Negative); Leukocyte Esterase,Urine Negative (Negative); Nitrite,Urine Negative (Negative); PH, Urine 5.5 (5.0-8.0); Protein,Urine Trace (Negative); Specific Gravity,Urine 1.028 (1.001-1.035); Urobilinogen,Urine <2.0 mg/dL (<2.0)
[2021-07-10] MEDS: METOCLOPRAMIDE 5 MG/ML 2 ML VIAL IVP PRN ×2 (04:11→14:54)
[2021-07-10] MEDS: NICOTINE 14MG/24HR PATCH TRANSDERM SCH (07:54)
[2021-07-10] MEDS: HYDROmorphone 0.5 MG/0.5 ML SYRINGE IVP PRN ×2 (08:03→14:53)
[2021-07-10] MEDS: BUMETANIDE 1 MG TAB PO SCH (09:08)
[2021-07-10 09:20] LABS: Basophils # (A) 0.05 X 10*3/uL (0.00-0.10); Basophils % (A) 0.7 %; Eosinophils # (A) 0.05 X 10*3/uL (0.04-0.35); Eosinophils % (A) 0.7 %; HCT 38.3 % (39.6-50.0); HGB 12.6 g/dL (13.0-17.0); Immature Grans, Automated 0.4 %; Lymphocytes # (A) 1.41 X 10*3/uL (0.90-5.00); MCH 29.8 pg (27.0-32.0); MCHC 32.9 g/dL (32.0-37.0); MCV 90.5 fL (80.0-97.0); Mean Platelet Volume 12.6 fL (9.5-12.2); Monocytes # (A) 0.69 X 10*3/uL (0.20-1.00); Monocytes % (A) 9.3 %; NRBC Per 100 WBC 0 /100 WBCS (0.0-0.0); Neutrophils # (A) 5.19 X 10*3/uL (1.80-7.70); Neutrophils % (A) 69.9 %; Platelet Count 211 X 10*3/uL (140-440); RBC 4.23 X 10*6/uL (4.40-5.60); RDW 19.2 % (11.5-14.5); WBC 7.42 X 10*3/uL (4.50-10.00)
[2021-07-10 09:34] LABS: African American GFR (CKD) 73.7 (60.0-200.0); Albumin 3.7 g/dL (3.8-4.9); Albumin/Globulin Ratio 1.45 (1.60-3.17); Anion Gap 13.5 mmol/L (10.00-18.00); BUN/Creat Ratio 20.69 Ratio (12.00-20.00); Blood Urea Nitrogen 26.9 mg/dL (9.0-27.0); Calcium 9.2 mg/dL (8.7-10.3); Carbon Dioxide 26.1 mmol/L (20.0-27.5); Globulin 2.5 g/dL (1.6-3.3); Non-African American GFR(CKD) 63.6 (60.0-200.0); Potassium 3.9 mmol/L (3.5-5.5); Total Bilirubin 2.2 mg/dL (0.30-1.20); Total Protein 6.2 g/dL (6.2-8.2)
[2021-07-10] MEDS: SODIUM CHLORIDE 0.9% 1,000 ML IV SCH (11:56)
--- NOTE | 2021-07-10 12:10 | P.CRDCN ---
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 Patient follows with a specialist, Dr. Li at [facility]. We have been asked to see the patient in consultation for CHF. Patient examined at the bedside. Patient presented to the hospital with a chief complaint of abdominal pain and constipation with no bowel movement for almost a week. He is pending evaluation by general surgery. The patient states he has not been eating or drinking much. He reports multiple episodes of vomiting overnight. He is receiving IVF at 50cc/hr. Patient denies any chest pain or pressure. Denies SOB. He reports he saw Dr. Li recently and underwent a cardiac biopsy. He states he does not know the results of this and is supposed to follow-up with them next week. Patient does report a history of left heart cath which revealed mild nonobstructive CAD. The patient is unsure if he has had a right heart catheterization performed. * Laboratory data: WBC 7.42. Hemoglobin 12.6. Platelet count 211. Sodium 126. Potassium 3.9. BUN 26. Creatinine 1.3. * Current home cardiac medications include lisinopril 2.5 mg daily, Bumex 2 mg every 48 hours and 4mg every 48 hours * Most recent echocardiogram obtained in March 2021 revealed ejection fraction 3035%, global hypokinesis, moderate to severe mitral regurgitation, [id number] tricuspid regurgitation, mild to moderate pulmonary hyper tension, small generalized pericardial effusion REVIEW OF SYSTEMS: At the time of my exam: CONSTITUTIONAL: Denies fever or chills. HEENT: Denies blurred vision, vision changes, or eye pain. Denies hemoptysis CARDIOVASCULAR: Denies chest pain. Denies orthopnea. Denies PND. Denies palpitations RESPIRATORY: Denies shortness of breath. GASTROINTESTINAL: Denies abdominal pain. Denies nausea or vomiting. HEMATOLOGIC: Denies bleeding disorders. GENITOURINARY: Denies any blood in urine. SKIN: Denies pruitis. Denies rash. PHYSICAL EXAM: VITAL SIGNS: Reviewed. GENERAL: Well-developed in no acute distress. HEENT: Head is normocephalic. Pupils are equal, round. Sclerae anicteric. Mucous membranes of the mouth are moist. Neck supple. No JVD or thyromegaly LUNGS: Respirations even and unlabored. Lungs essentially clear to auscultation bilaterally. HEART: Regular rate and rhythm. S1 and S2 heard. ABDOMEN: Soft. Distended. Nontender. EXTREMITIES: Normal range of motion. No clubbing or cyanosis. Peripheral pulses intact. No lower extremity edema NEUROLOGIC: Awake and alert. Oriented x 3. ASSESSMENT: Abdominal pain with constipation Chronic heart failure with reduced EF Acute kidney injury, likely secondary to decreased oral intake and vomiting History of TIA History of multiple myeloma Suspected cardiac amyloidosis PLAN: Patient is not clinically in heart failure at this time He is receiving gentle IV fluids secondary to SHANNON and vomiting Recommend holding Bumex until patient is able to tolerate oral intake Hold lisinopril for SBP less than 90 Patient to follow up outpatient with his cardiac cath technician downtown, Dr. Li We will sign off. Please reconsult if needed Nurse practitioner note has been reviewed by physician. Signing provider agrees with the documented findings, assessment, and plan of care. Past Medical History Past Medical History: Cancer, Heart Failure, GERD/Reflux, Syncope Additional Past Medical History / Comment(s): Multiple myleoma dx a month ago, Cardiac Amylodosis History of Any Multi-Drug Resistant Organisms: None Reported Past Surgical History: Cholecystectomy, Heart Catheterization Past Anesthesia/Blood Transfusion Reactions: No Reported Reaction Past Psychological History: No Psychological Hx Reported Smoking Status: Current every day smoker Past Alcohol Use History: None Reported Past Drug Use History: None Reported Additional Drug Use History / Comment(s): reports he is a half a pack per day cigarette smoker, states he has been trying to quit Medications and Allergies Home Medications Medication Instructions Recorded Confirmed Type Acetaminophen Tab [Tylenol] 650 mg PO Q6HR PRN tab 06/24/21 07/09/21 Rx Bumetanide [BUMEX] 2 mg PO Q48H 07/09/21 07/09/21 History Bumetanide [BUMEX] 4 mg PO Q48H 07/09/21 07/09/21 History HYDROcodone/APAP 5-325MG [[place] 1 tab PO Q8HR PRN 07/09/21 07/09/21 History 5-325] lisinopriL [Zestril] 2.5 mg PO DAILY 07/09/21 07/09/21 History Allergies Allergy/AdvReac Type Severity Reaction Status Date / Time strawberry AdvReac Rash/Hives Verified 07/09/21 13:12 Physical Exam Vitals: Vital Signs Temp Pulse Pulse Resp BP BP Pulse Ox 07/10/21 06:46 97.4 F L 91 17 93/60 97 07/10/21 02:00 97.4 F L 88 18 98/64 95 07/09/21 20:45 97.7 F 90 18 96/70 100 07/09/21 17:39 98.0 F 87 18 98/71 98 07/09/21 15:49 89 18 99/73 98 07/09/21 14:00 72 18 88/64 98 07/09/21 12:42 86 18 87/61 99 Intake and Output 07/09/21 07/10/21 07/10/21 22:59 06:59 14:59 Output Total 700 800 Balance -700 -800 Output: Emesis 700 800 Other: Weight 85.275 kg Results 07/10/21 05:37 07/10/21 05:37 Cardiac Enzymes 07/10/21 Range/Units 05:37 AST 27 (14-35) U/L Coagulation 07/09/21 Range/Units 17:45 PT 11.8 (9.0-12.0) sec CBC 07/10/21 Range/Units 05:37 WBC 7.42 (4.50-10.00) X 10*3/uL RBC 4.23 L (4.40-5.60) X 10*6/uL Hgb 12.6 L (13.0-17.0) g/dL Hct 38.3 L (39.6-50.0) % Plt Count 211 (140-440) X 10*3/uL Comprehensive Metabolic Panel 07/10/21 Range/Units 05:37 Sodium 126 L (135-145) mmol/L Potassium 3.9 (3.5-5.5) mmol/L Chloride 87 L (96-109) mmol/L Carbon Dioxide 26.1 (20.0-27.5) mmol/L BUN 26.9 (9.0-27.0) mg/dL Creatinine 1.3 (0.6-1.5) mg/dL Glucose 97 (70-110) mg/dL Calcium 9.2 (8.7-10.3) mg/dL AST 27 (14-35) U/L ALT 17 (10-49) U/L Alkaline Phosphatase 97 (41-126) U/L Total Protein 6.2 (6.2-8.2) g/dL Albumin 3.7 L (3.8-4.9) g/dL Current Medications Generic Name Dose Route Start Last Admin Trade Name Freq PRN Reason Stop Dose Admin Hydrocodone Bitart/Acetaminophen 1 each 07/09/21 16:56 07/10/21 04:11 Hydrocodone/Apap 5-325mg 1 Each Tab PO 1 each Q8HR PRN Administration Pain Alprazolam 0.25 mg 07/09/21 17:00 07/09/21 20:37 Alprazolam 0.25 Mg Tab PO 0.25 mg TID PRN Administration Anxiety Bumetanide 4 mg 07/10/21 09:00 07/10/21 09:08 Bumetanide 1 Mg Tab PO Not Given Q48H ON LICENSE OF [facility] Bumetanide 2 mg 07/11/21 09:00 Bumetanide 1 Mg Tab PO Q48H ON LICENSE OF [facility] Docusate Sodium 100 mg 07/10/21 09:15 Docusate 100 Mg Cap PO DAILY PRN Constipation Hydromorphone HCl 0.5 mg 07/09/21 12:56 07/10/21 08:03 Hydromorphone 0.5 Mg/0.5 Ml Syringe IVP 0.5 mg Q3HR PRN Administration Moderate Pain Sodium Chloride 1,000 mls @ 50 mls/hr 07/09/21 12:45 07/10/21 11:56 Saline 0.9% IV Not Given .Q20H ON LICENSE OF [facility] Ceftriaxone Sodium 1 gm/ 50 mls @ 100 mls/hr 07/10/21 09:00 07/10/21 08:03 Sodium Chloride IVPB 100 mls/hr Q24HR MIGUEL Administration Protocol Lisinopril 2.5 mg 07/10/21 09:00 07/10/21 07:47 Lisinopril 2.5 Mg Tab PO Not Given DAILY ON LICENSE OF [facility] Metoclopramide HCl 5 mg 07/09/21 21:25 07/10/21 04:11 Metoclopramide 5 Mg/Ml 2 Ml Vial IVP 5 mg Q6HR PRN Administration Nausea And Vomiting Naloxone HCl 0.2 mg 07/09/21 12:56 Naloxone 0.4 Mg/Ml 1 Ml Vial IV Q2M PRN Opioid Reversal Nicotine 1 patch 07/09/21 17:00 07/10/21 07:54 Nicotine 14mg/24hr Patch TRANSDERM Not Given DAILY MIGUEL Ondansetron HCl 4 mg 07/09/21 12:56 07/10/21 08:59 Ondansetron 4 Mg/2 Ml Vial IVP 4 mg Q8HR PRN Administration Nausea And Vomiting Intake and Output 07/09/21 07/10/21 07/10/21 22:59 06:59 14:59 Output Total 700 800 Balance -700 -800 Output: Emesis 700 800 Other: Weight 85.275 kg Patient Weight 07/11/21 06:59 Weight 85.275 kg 07/10/21 05:37 07/10/21 05:37
[2021-07-10] MEDS: DOCUSATE 100 MG CAP PO PRN (14:53)
--- NOTE | 2021-07-10 14:59 | P.GSCN ---
History of Present Illness Consult date: 07/10/21 History of present illness: CHIEF COMPLAINT: Abdominal pain HISTORY OF PRESENT ILLNESS: This is a 51-year-old male who presented to the hospital with abdominal pain and vomiting. He reports his last bowel movement was a day and a half ago. He also reports that he had been recently started on a diuretic and now presents with hyponatremia and acute kidney injury. Marlene rodgers's last episode of vomiting was yesterday. He was able to eat a muffin for breakfast. He had computed tomography scan abdomen and pelvis which showed moderate abdominal pelvic ascites. He continued small to moderate pericardial effusion. An lesion in the right kidney. Patient is currently on IV fluids. He is followed by cardiology service felt that there is no evidence of an acute CHF exacerbation. His Lasix is on hold. He has a history of multiple myeloma and amyloidosis. Surgical history includes cholecystectomy. Denies any fever or chills. Does admit to having some sweats. Patient reexamined this afternoon with Dr. vo. Patient is now having small bowel movements and flatus. Patient seen and examined with Dr. vo PAST MEDICAL HISTORY: Ischemic cardiomyopathy, suspected cardiac amyloidosis, TIA, CHF PAST SURGICAL HISTORY: See list. MEDICATIONS: See list. ALLERGIES: See list. SOCIAL HISTORY: No illicit drug use. REVIEW OF SYSTEMS: CONSTITUTIONAL: Denies fever or chills. HEENT: Denies blurred vision, vision changes, or eye pain. Denies hemoptysis CARDIOVASCULAR: Denies chest pain or pressure. RESPIRATORY: No shortness of breath. GASTROINTESTINAL: See HPI for pertinent findings HEMATOLOGIC: Denies bleeding disorders. GENITOURINARY: Denies any blood in urine or increased urinary frequency. SKIN: Denies pruitis. Denies rash. PHYSICAL EXAM: VITAL SIGNS: Reviewed GENERAL: Well-developed in no acute distress. HEENT: No sclera icterus. Extraocular movements grossly intact. Moist buccal mucosa. Head is atraumatic, normocephalic. No nasal drainage. ABDOMEN: Soft. Mildly distended. Nontender. NEUROLOGIC: Alert and oriented. Cranial nerves II through XII grossly intact. LABORATORY DATA: WBC 7.42 hemoglobin 14.3 down to 12.6 platelets 211 Sodium 124 to 126 potassium 3.9 creatinine 1.37 down to 1.3 Lactic acid 1.3 LFTs normal total bilirubin 3.3 down to 2.20 Lipase 49 Urinalysis negative for infection IMAGING: Computed tomography scan abdomen and pelvis 2.7 x 1.7 cm indeed terminate cortical lesion lateral right kidney complicated sepsis is possible though there is questionable enhancement. Recommend 2-3 week follow-up targeted ultrasound to reassess. Moderate abdominal pelvic ascites. Continued small to moderate pericardial effusion. Slightly heterogeneous appearance to the liver may be due to scan timing. Correlate with LFTs to exclude nonspecific hepatocellular disease. Mild perivascular fat string around the bladder correlate to exclude cystitis.. Abdominal x-ray bowel gas pattern without evidence of acute process. Fecal material and gas are distributed throughout the colon and rectal ASSESSMENT: 1. Abdominal pain 2. Constipation and possible ileus 3. Abdominal ascites 4. Hyponatremia 5. Acute renal failure PLAN: -No surgical intervention planned -Continue supportive care -Add Colace -Continue regular diet -If patient's abdominal pain and distention worsen would recommend a repeat computed tomography scan abdomen and pelvis with oral contrast Physician Upkeep Mechanic note has been reviewed by physician. Signing provider agrees with the documented findings, assessment, and plan of care. Past Medical History Past Medical History: Cancer, Heart Failure, GERD/Reflux, Syncope Additional Past Medical History / Comment(s): Multiple myleoma dx a month ago, Cardiac Amylodosis History of Any Multi-Drug Resistant Organisms: None Reported Past Surgical History: Cholecystectomy, Heart Catheterization Past Anesthesia/Blood Transfusion Reactions: No Reported Reaction Past Psychological History: No Psychological Hx Reported Smoking Status: Current every day smoker Past Alcohol Use History: None Reported Past Drug Use History: None Reported Additional Drug Use History / Comment(s): reports he is a half a pack per day cigarette smoker, states he has been trying to quit Medications and Allergies Home Medications Medication Instructions Recorded Confirmed Type Acetaminophen Tab [Tylenol] 650 mg PO Q6HR PRN tab 06/24/21 07/09/21 Rx Bumetanide [BUMEX] 2 mg PO Q48H 07/09/21 07/09/21 History Bumetanide [BUMEX] 4 mg PO Q48H 07/09/21 07/09/21 History HYDROcodone/APAP 5-325MG [[place] 1 tab PO Q8HR PRN 07/09/21 07/09/21 History 5-325] lisinopriL [Zestril] 2.5 mg PO DAILY 06/02/22 06/02/22 History Allergies Allergy/AdvReac Type Severity Reaction Status Date / Time strawberry AdvReac Rash/Hives Verified 07/09/21 13:12 Surgical - Exam Vital Signs Temp Pulse Resp BP Pulse Ox 97.7 F 64 16 92/66 97 07/09/21 10:22 07/09/21 10:22 07/09/21 10:22 07/09/21 10:22 07/09/21 10:22 Results - Labs 07/10/21 05:37 07/10/21 05:37 Abnormal Lab Results - Last 24 Hours (Table) 07/09/21 07/09/21 07/10/21 Range/Units 10:49 10:49 02:02 RBC (4.40-5.60) X 10*6/uL Hgb (13.0-17.0) g/dL Hct (39.6-50.0) % RDW 18.2 H (11.5-15.5) % MPV (9.5-12.2) fL Sodium 124 L (137-145) mmol/L Chloride 87 L (98-107) mmol/L BUN 31 H (9-20) mg/dL Creatinine 1.37 H (0.66-1.25) mg/dL BUN/Creatinine Ratio (12.00-20.00) Ratio Glucose 102 H (74-99) mg/dL Total Bilirubin 3.3 H (0.2-1.3) mg/dL Albumin (3.8-4.9) g/dL Albumin/Globulin Ratio (1.60-3.17) g/dL Urine Protein Trace H (Negative) 07/10/21 07/10/21 Range/Units 05:37 05:37 RBC 4.23 L (4.40-5.60) X 10*6/uL Hgb 12.6 L (13.0-17.0) g/dL Hct 38.3 L (39.6-50.0) % RDW 19.2 H (11.5-15.5) % MPV 12.6 H (9.5-12.2) fL Sodium 126 L (137-145) mmol/L Chloride 87 L (98-107) mmol/L BUN (9-20) mg/dL Creatinine (0.66-1.25) mg/dL BUN/Creatinine Ratio 20.69 H (12.00-20.00) Ratio Glucose (74-99) mg/dL Total Bilirubin 2.20 H (0.2-1.3) mg/dL Albumin 3.7 L (3.8-4.9) g/dL Albumin/Globulin Ratio 1.45 L (1.60-3.17) g/dL Urine Protein (Negative) Diabetes panel 07/09/21 07/10/21 Range/Units 10:49 05:37 Sodium 124 L 126 L (137-145) mmol/L Potassium 3.8 3.9 (3.5-5.1) mmol/L Chloride 87 L 87 L (98-107) mmol/L Carbon Dioxide 30 26.1 (22-30) mmol/L BUN 31 H 26.9 (9-20) mg/dL Creatinine 1.37 H 1.3 (0.66-1.25) mg/dL Glucose 102 H 97 (74-99) mg/dL Calcium 9.4 9.2 (8.4-10.2) mg/dL AST 34 27 (17-59) U/L ALT 18 17 (4-49) U/L Alkaline Phosphatase 110 97 (38-126) U/L Total Protein 7.4 6.2 (6.3-8.2) g/dL Albumin 4.1 3.7 L (3.5-5.0) g/dL Calcium panel 07/09/21 07/10/21 Range/Units 10:49 05:37 Calcium 9.4 9.2 (8.4-10.2) mg/dL Albumin 4.1 3.7 L (3.5-5.0) g/dL Pituitary panel 07/09/21 07/10/21 Range/Units 10:49 05:37 Sodium 124 L 126 L (137-145) mmol/L Potassium 3.8 3.9 (3.5-5.1) mmol/L Chloride 87 L 87 L (98-107) mmol/L Carbon Dioxide 30 26.1 (22-30) mmol/L BUN 31 H 26.9 (9-20) mg/dL Creatinine 1.37 H 1.3 (0.66-1.25) mg/dL Glucose 102 H 97 (74-99) mg/dL Calcium 9.4 9.2 (8.4-10.2) mg/dL Adrenal panel 07/09/21 07/10/21 Range/Units 10:49 05:37 Sodium 124 L 126 L (137-145) mmol/L Potassium 3.8 3.9 (3.5-5.1) mmol/L Chloride 87 L 87 L (98-107) mmol/L Carbon Dioxide 30 26.1 (22-30) mmol/L BUN 31 H 26.9 (9-20) mg/dL Creatinine 1.37 H 1.3 (0.66-1.25) mg/dL Glucose 102 H 97 (74-99) mg/dL Calcium 9.4 9.2 (8.4-10.2) mg/dL Total Bilirubin 3.3 H 2.20 H (0.2-1.3) mg/dL AST 34 27 (17-59) U/L ALT 18 17 (4-49) U/L Alkaline Phosphatase 110 97 (38-126) U/L Total Protein 7.4 6.2 (6.3-8.2) g/dL Albumin 4.1 3.7 L (3.5-5.0) g/dL
--- NOTE | 2021-07-10 17:38 | PN ---
PROGRESS NOTE DATE OF SERVICE: 07/10/2021 This 51-year-old gentleman admitted with abdominal pain and some distention is being evaluated for small bowel obstruction. The abdominal x-ray done today which was reviewed personally by me showed a nonspecific bowel gas pattern. Surgical evaluation is in progress. Cardiology has also see the patient. No chest pain. No palpitation. PHYSICAL EXAMINATION: Pulse is 91, blood pressure 93/60, respirations 17, temperature 97.5. HEENT: Conjunctivae normal. NECK: No jugular venous distention. CARDIOVASCULAR: S1, S2 muffled. RESPIRATION: Breath sounds diminished at the bases. No rhonchi. ABDOMEN: Soft. NERVOUS SYSTEM: No focal deficit. LABS: Hemoglobin 12.6. Sodium 126. ASSESSMENT: 1. Abdominal pain and distention for evaluation. Rule out bowel obstruction. Rule out sepsis. 2. Hyponatremia. 3. Acute renal failure. 4. Recently diagnosed cardiac amyloidosis. 5. Possible multiple myeloma. 6. History of gastroesophageal reflux disease. RECOMMENDATIONS AND DISCUSSION: I recommend to continue current medications, continue with the monitoring, symptomatic treatment. Closely follow with Surgery and Cardiology. See orders for details. Guarded prognosis. Further recommendations to follow. MMODL / IJN: [id number] /
[2021-07-11] MEDS: HYDROmorphone 0.5 MG/0.5 ML SYRINGE IVP PRN ×3 (04:11→21:26)
[2021-07-11] MEDS: METOCLOPRAMIDE 5 MG/ML 2 ML VIAL IVP PRN ×2 (04:12→15:18)
[2021-07-11] MEDS: SODIUM CHLORIDE 0.9% 1,000 ML IV SCH (04:15)
[2021-07-11] MEDS: NICOTINE 14MG/24HR PATCH TRANSDERM SCH (07:35)
[2021-07-11] MEDS: DOCUSATE 100 MG CAP PO PRN (07:47)
[2021-07-11] MEDS: ONDANSETRON 4 MG/2 ML VIAL IVP PRN ×2 (07:48→21:26)
[2021-07-11 08:41] LABS: Basophils # (A) 0.07 X 10*3/uL (0.00-0.10); Basophils % (A) 1.1 %; Eosinophils # (A) 0.06 X 10*3/uL (0.04-0.35); Eosinophils % (A) 0.9 %; HCT 36.8 % (39.6-50.0); HGB 12.3 g/dL (13.0-17.0); Immature Grans, Automated 0.3 %; Lymphocytes # (A) 1.11 X 10*3/uL (0.90-5.00); Lymphocytes % (A) 16.7 %; MCH 30.1 pg (27.0-32.0); MCHC 33.4 g/dL (32.0-37.0); MCV 90.2 fL (80.0-97.0); Mean Platelet Volume 12.4 fL (9.5-12.2); Monocytes # (A) 0.61 X 10*3/uL (0.20-1.00); Monocytes % (A) 9.2 %; NRBC Per 100 WBC 0 /100 WBCS (0.0-0.0); Neutrophils # (A) 4.76 X 10*3/uL (1.80-7.70); Neutrophils % (A) 71.8 %; Platelet Count 211 X 10*3/uL (140-440); RBC 4.08 X 10*6/uL (4.40-5.60); RDW 19.3 % (11.5-14.5); WBC 6.63 X 10*3/uL (4.50-10.00)
[2021-07-11 09:14] LABS: African American GFR (CKD) 101.3 (60.0-200.0); Anion Gap 11.7 mmol/L (10.00-18.00); BUN/Creat Ratio 18.6 Ratio (12.00-20.00); Blood Urea Nitrogen 18.6 mg/dL (9.0-27.0); Calcium 8.9 mg/dL (8.7-10.3); Carbon Dioxide 25.3 mmol/L (20.0-27.5); Non-African American GFR(CKD) 87.4 (60.0-200.0); Potassium 3.7 mmol/L (3.5-5.5)
[2021-07-11] MEDS: BUMETANIDE 1 MG TAB PO SCH (10:24)
--- NOTE | 2021-07-11 10:43 | P.PN ---
Subjective Progress Note Date: 07/11/21 Principal diagnosis: Abdominal pain Patient says he is doing better today. Tolerating regular diet. He is passing flatus. No bowel movement. Says he is having mild bilateral lower quadrant tenderness. Overall pain seems to be improved however. Objective - Vital Signs Vital signs: Vital Signs Temp 98.1 F 07/11/21 07:50 Pulse 99 07/11/21 07:50 Resp 15 07/11/21 07:50 BP 95/61 07/11/21 07:50 Pulse Ox 97 07/11/21 07:50 FiO2 Intake & Output 07/10/21 07/11/21 07/11/21 18:59 06:59 18:59 Weight 85.275 kg Other: # Voids 3 - Exam Abdomen: Soft, nondistended, mild lower abdominal tenderness - Labs CBC & Chem 7: 07/11/21 05:56 07/11/21 05:56 Labs: Abnormal Lab Results - Last 24 Hours (Table) 07/11/21 07/11/21 Range/Units 05:56 05:56 RBC 4.08 L (4.40-5.60) X 10*6/uL Hgb 12.3 L (13.0-17.0) g/dL Hct 36.8 L (39.6-50.0) % RDW 19.3 H (11.5-14.5) % MPV 12.4 H (9.5-12.2) fL Sodium 127 L (135-145) mmol/L Chloride 90 L (96-109) mmol/L Microbiology - Last 24 Hours (Table) 07/09/21 13:35 Blood Culture - Preliminary Blood No Growth after 24 hours 07/09/21 13:40 Blood Culture - Preliminary Blood No Growth after 24 hours Assessment and Plan (1) Abdominal pain Narrative/Plan: 51-year-old male with lower abdominal pain. Recent findings of ascites. Thought to be related to patient's electrolyte imbalance and cardiac issues. Continue optimization of labs. Continue regular diet. We'll follow with you. Current Visit: Yes Status: Acute Code(s): R10.9 - UNSPECIFIED ABDOMINAL PAIN SNOMED Code(s): 71168110
--- NOTE | 2021-07-11 13:21 | PN ---
PROGRESS NOTE DATE OF SERVICE: 07/11/2021 This 51-year-old gentleman who was admitted with abdominal pain and distention is still rather constipated. Multiple consultants are following the patient closely. Surgery has seen the patient and is following the patient. No chest pain. No palpitations. No fever. PHYSICAL EXAMINATION: Pulse is 99, blood pressure 95/61, respiration 15. HEENT: Conjunctivae normal. NECK: No jugular venous distention. CARDIOVASCULAR: S1, S2 muffled. RESPIRATION: Breath sounds diminished at the bases. ABDOMEN: Soft. Mild diffuse distention. Nontender. No guarding. No rigidity. Bowel sounds present. LEGS: No edema. No swelling. NERVOUS SYSTEM: No focal deficit. LABS: Sodium 127. Other labs are noted. ASSESSMENT: 1. Abdominal pain and distention; rule out bowel obstruction. 2. Hyponatremia. 3. Acute renal failure. 4. Recently diagnosed cardiac amyloidosis. 5. Possible multiple myeloma. 6. History of gastroesophageal reflux disease. RECOMMENDATIONS AND DISCUSSION: I recommend to continue current medications, continue with the monitoring, symptomatic treatment. Follow closely with Surgery. The patient had a colonoscopy several years ago. Patient might require another colonoscopy. Closely monitor. Follow with Cardiology. Guarded prognosis. Further recommendations to follow. MMODL / IJN: [id number] /
[2021-07-12] MEDS: HYDROmorphone 0.5 MG/0.5 ML SYRINGE IVP PRN ×4 (02:13→21:20)
[2021-07-12] MEDS: SODIUM CHLORIDE 0.9% 1,000 ML IV SCH ×2 (02:16→15:09)
[2021-07-12] MEDS: METOCLOPRAMIDE 5 MG/ML 2 ML VIAL IVP PRN ×2 (04:51→17:23)
[2021-07-12] MEDS: DOCUSATE 100 MG CAP PO PRN (07:48)
[2021-07-12] MEDS: ONDANSETRON 4 MG/2 ML VIAL IVP PRN (07:48)
[2021-07-12] MEDS: NICOTINE 14MG/24HR PATCH TRANSDERM SCH ×2 (07:48→07:54)
[2021-07-12] MEDS: BUMETANIDE 1 MG TAB PO SCH (10:17)
[2021-07-12] MEDS ORDERED: MAGNESIUM HYDROXIDE 2,400 MG/10 ML CUP PO PRN (11:27)
--- NOTE | 2021-07-12 11:27 | P.PN ---
Subjective Progress Note Date: 07/12/21 Principal diagnosis: Abdominal pain Patient without new complaints. Says his pain is about the same today. No bowel movement. He describes decreased amount of flatus. He did have an episode of vomiting earlier today. Pain is still lower abdomen and comes intermittently. Objective - Vital Signs Vital signs: Vital Signs Temp 97.8 F 07/12/21 08:00 Pulse 96 07/12/21 08:00 Resp 14 07/12/21 08:00 BP 94/61 07/12/21 08:00 Pulse Ox 96 07/12/21 08:00 FiO2 Intake & Output 07/11/21 07/12/21 07/12/21 18:59 06:59 18:59 Intake Total 540 Balance 540 Intake: Oral 540 Other: Voiding Method Toilet # Voids 5 2 - Exam Abdomen: Soft, mild distention, mild bilateral lower quadrant tenderness - Labs CBC & Chem 7: 07/11/21 05:56 07/11/21 05:56 Labs: Microbiology - Last 24 Hours (Table) 07/09/21 13:40 Blood Culture - Preliminary Blood No Growth after 48 hours 07/09/21 13:35 Blood Culture - Preliminary Blood No Growth after 48 hours Assessment and Plan (1) Abdominal pain Narrative/Plan: Patient still having abdominal discomfort. Bowel function seems to have decrea sed somewhat. We'll add stool softener. Continue diet. Increase activity. Current Visit: Yes Status: Acute Code(s): R10.9 - UNSPECIFIED ABDOMINAL PAIN SNOMED Code(s): 17150720
--- NOTE | 2021-07-12 14:39 | PN ---
PROGRESS NOTE DATE OF SERVICE: 07/12/2021 This is a 51-year-old gentleman who was admitted with abdominal pain and distention is being closely monitored. Surgery is following the patient. Patient apparently having chemotherapy tomorrow at [facility] regarding amyloidosis/multiple myeloma. PHYSICAL EXAMINATION: Pulse 95, blood pressure 98/66, respirations 18. HEENT: Conjunctivae normal. Neck: No JVD. Cardiovascular: S1, S2. Respirations: Breath sounds diminished in the bases. Abdomen: Soft. Mildly diffuse, distended. Nontender. No mass palpable. Legs no edema. LABS: Hemoglobin 12.3. Sodium is 127. ASSESSMENT: 1. Abdominal pain and distention, rule out bowel obstruction and constipation. 2. Hyponatremia. 3. Acute renal failure. 4. Recently diagnosed cardiac amyloidosis, possibly. 5. Possible multiple myeloma. 6. History of gastroesophageal reflux disease. RECOMMENDATIONS AND DISCUSSION: I recommend to continue current medications, symptomatic treatment. Otherwise, closely follow with surgery. Symptomatic treatment. Prognosis guarded. Further recommendations to follow. MMODL / IJN: [id number] /
--- NOTE | 2021-07-12 19:14 | XR ---
EXAMINATION TYPE: XR abdomen complete w decub DATE OF EXAM: 07/12/2021 COMPARISON: 07/09/2021 HISTORY: Abdominal pain TECHNIQUE: 5 views FINDINGS: There are some large bowel fluid levels on the right side. No evidence of free air. I do no t see evidence for mechanical bowel obstruction. Lung bases are clear. No pathologic calcification se en over the kidneys. There are clips from cholecystectomy. IMPRESSION: Nonacute abdomen.
[2021-07-12] MEDS ORDERED: NA PHOS,M-B/NA PHOS,DI-BA 133 ML ENEMA RECTAL ONE (21:47)
[2021-07-13 07:52] VITALS: BP 91/53; PULSE 93; RESP 18; TEMP 98.4
[2021-07-13 08:43] LABS: African American GFR (CKD) >90 (>60 ml/min/1.73 sqM); Anion Gap 8 mmol/L; Blood Urea Nitrogen 15 mg/dL (9-20); Calcium 8.6 mg/dL (8.4-10.2); Carbon Dioxide 27 mmol/L (22-30); Chloride 92 mmol/L (98-107); Glucose 111 mg/dL (74-99); Non-African American GFR(CKD) 83 (>60 ml/min/1.73 sqM); Potassium 3.6 mmol/L (3.5-5.1); Sodium 127 mmol/L (137-145)
[2021-07-13] MEDS: BUMETANIDE 1 MG TAB PO SCH (08:54)
[2021-07-13] MEDS: NICOTINE 14MG/24HR PATCH TRANSDERM SCH (08:57)
[2021-07-13] MEDS ORDERED: POTASSIUM CHLORIDE ER 20 MEQ TAB.ER PO STA (09:17)
[2021-07-13] MEDS: DOCUSATE 100 MG CAP PO PRN (10:38)
--- NOTE | 2021-07-13 12:57 | P.PN ---
Subjective Progress Note Date: 07/13/21 CHIEF COMPLAINT: Abdominal pain HISTORY OF PRESENT ILLNESS: Patient reports having 6 bowel movements after Fleet enema and milk of magnesia. He denies any nausea or vomiting. He reports his pain is better. His abdominal x-ray was negative. Sodium remains low at 127. He's currently on a clear liquid diet. He is afebrile. Last WBC is 6.63. cr 1.05 Patient reports that he wants to be discharged. He has an appointment at [facility] to start chemotherapy. PHYSICAL EXAM: VITAL SIGNS: Reviewed. GENERAL: Well-developed in no acute distress. HEENT: No sclera icterus. Extraocular movements grossly intact. Moist buccal mucosa. Head is atraumatic, normocephalic. ABDOMEN: Soft. Mildly distended. Nontender. NEUROLOGIC: Alert and oriented. Cranial nerves II through XII grossly intact. ASSESSMENT: 1. Abdominal pain 2. Constipation and possible ileus 3. Abdominal ascites 4. Hyponatremia 5. Acute renal failure PLAN: -Advance diet to full liquids -Patient can be discharge from surgical service when medically stable -Continue supportive care Physician Tester Regulator note has been reviewed by physician. Signing provider agrees with the documented findings, assessment, and plan of care. Objective - Vital Signs Vital signs: Vital Signs Temp 98.4 F 07/13/21 07:51 Pulse 93 07/13/21 07:51 Resp 18 07/13/21 07:51 BP 91/53 07/13/21 07:51 Pulse Ox 96 07/13/21 07:51 FiO2 Intake & Output 07/12/21 07/13/21 07/13/21 18:59 06:59 18:59 Other: Voiding Method Toilet Toilet # Voids 5 2 # Bowel Movements 1 - Labs CBC & Chem 7: 07/11/21 05:56 07/13/21 08:18 Labs: Abnormal Lab Results - Last 24 Hours (Table) 07/13/21 Range/Units 08:18 Sodium 127 L (137-145) mmol/L Chloride 92 L (98-107) mmol/L Glucose 111 H (74-99) mg/dL Microbiology - Last 24 Hours (Table) 07/09/21 13:40 Blood Culture - Preliminary Blood No Growth after 72 hours 07/09/21 13:35 Blood Culture - Preliminary Blood No Growth after 72 hours
--- NOTE | 2021-07-13 13:54 | P.DS ---
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 Patient is given script for repeat metabolic panel in 2 days. Continue on bumex 2 mg po daily. Lisinopril parameters include holding for systolic BP less than 90. Patient is currently on clear liquid diet which has been advanced to full liquid. He is cleared by surgery to advance to full liquid and follow up in the office. He is currently having bowel movements. Hospital Course This is a 51-year-old male who presents to the hospital with complaints of no bowel movement for the last week also having abdominal pain. Patient states he has not been eating or drinking much and has had multiple episodes of vomiting prior to admission. He received gentle hydration at 50 mL per hour. Patient is a past medical history of multiple myeloma as well as systolic heart failure, and has recently undergone cardiac biopsy with Dr. Tita. Rudi Yin. He is undergoing workup for possible cardiac amyloidosis. Patient was recently admitted to the hospital for heart failure exacerbation and discharged on oral bumex. He also received 3 days of norco and cymbalta for peripheral neuropathic pain at that time. Patient was evaluated by general surgery this admission for constipation and possible ileus and was treated conservatively with clear liquid diet. He received a fleet enema and has been having multiple bowel movements now. He will be advanced to full liquid and may discharge and follow up with general surgery as needed outpatient. Additionally, patient was evaluated by cardiology and patient is not currently in heart failure exacerbation. Labs on admission showing white count 7.7, hgb 14.3, sodium 124, potassium 3.8, BUN 31, creat 1.37, total patrick 3.3. Urine negative. Abdomen xray showing 2.7 x 1.7 cm indeterminate cortical lesion lateral right kidney, vs. complicated cyst recommending 3 week follow up ultrasound vs. [address], moderate abdominal ascites, small to moderate pericardial effusion, slightly heterogeneous appearance to liver, mild perivesicular fat stranding around the bladder correlate to exclude cystitis. Follow up abdominal xray showing nonacute abdomen without evidence for mechanical bowel obstruction. 07/13/2021 Patient will be discharged today as he has appointment later this afternoon with [facility] in [place] regarding chemotherapy which he is anxious to begin. His repeat sodium is 127 which has improved slightly from admission. He has been cleared from surgical services with instructions as above, he is now having bowel movements. Potassium today is 3.6 today received 40 MEQ of potassium replacement today, BUN 15, creatinine 1.05 which is improved. Patient denies chest pain, cough, shortness of breath. Denies abdominal pain, he is having multiple bowel movements. No further episodes of emesis. He states he did not begin the cymbalta for his neuropathic pain, discussed and he can begin if he wishes, states he does not want to continue on norco. Lungs are clear, S1 S2 auscultated, abdomen is distended but soft and nontender. Hypoactive left lower quadrant, normoactive everywhere else. Has some mild peripheral edema. Focal neurological exam is negative. He is given prescription to repeat sodium in 2 days. Diet can be advanced to full liquid. Vitals today, afebrile, heart rate 93, blood pressure 91/53, 96% room air. Discharge Instructions given include: Continue with Bumex 2 mg PO daily starting on TuesdayJuly 13 Check weight daily in the morning - if there is a weight gain of 2-3 lbs in 24 to 48 hours, take an extra bumex 2 mg PO Repeat labs in 2 days to follow up on sodium level Continue to hold lisinopril if systolic blood pressure is less than 90 Take cymbalta 30 mg PO daily for neuropathic pain May take 4 to 6 weeks to feel full affect. Continue with colace daily for bowels Increase diet to full liquid and increase as tolerated Please see medication reconciliation for a list of current medication. Thank you for allowing us to participate in the care of this patient. The impression and plan of care has been dictated by Jaylin Gilmore, Nurse Practitioner as directed. Dr. Jeanmarie MD I have performed a history and physical examination and medical decision making of this patient, discussed the same with the dictator, and agree with the dictators assessment and plan as written, documented as a scribe. Based on total visit time, I have performed more than 50% of this visit. Patient Condition at Discharge: Fair Plan - Discharge Summary Discharge Rx Participant: No New Discharge Prescriptions: New Docusate [Colace] 100 mg PO DAILY PRN #30 cap PRN Reason: Constipation DULoxetine HCL [Cymbalta] 30 mg PO DAILY #30 cap Continue Acetaminophen Tab [Tylenol] 650 mg PO Q6HR PRN tab PRN Reason: Fever And/ Or Pain Bumetanide [BUMEX] 2 mg PO DAILY #0 lisinopriL [Zestril] 2.5 mg PO DAILY #0 Discontinued HYDROcodone/APAP 5-325MG [[place] 5-325] 1 tab PO Q8HR PRN PRN Reason: Pain Bumetanide [BUMEX] 4 mg PO Q48H Discharge Medication List Acetaminophen Tab [Tylenol] 650 mg PO Q6HR PRN tab 06/24/21 [Rx] Bumetanide [BUMEX] 2 mg PO DAILY #0 07/13/21 [Rx] DULoxetine HCL [Cymbalta] 30 mg PO DAILY #30 cap 07/13/21 [Rx] Docusate [Colace] 100 mg PO DAILY PRN #30 cap 07/13/21 [Rx] lisinopriL [Zestril] 2.5 mg PO DAILY #0 07/13/21 [Rx] Follow up Appointment(s)/Referral(s): Xin Mills MD [Primary Care Provider] - 1-2 days (office closed at time of discharge. Please call to schedule appointment ) Dr. Jen [Other] - As Needed Dr. Joe [Other] - As Needed Charles Rod MD [Medical Doctor] - 1 Week Ambulatory/Diagnostic Orders: Basic Metabolic Panel [LAB.AMB] Time Frame: 2 Days, Location: None Selected Activity/Diet/Wound Care/Special Instructions: Continue with Bumex 2 mg PO daily starting on TuesdayJuly 13 Check weight daily in the morning - if there is a weight gain of 2-3 lbs in 24 to 48 hours, take an extra bumex 2 mg PO Repeat labs in 2 days to follow up on sodium level Continue to hold lisinopril if systolic blood pressure is less than 90 Take cymbalta 30 mg PO daily for neuropathic pain May take 4 to 6 weeks to feel full affect. Continue with colace daily for bowels Increase diet to full liquid and increase as tolerated Discharge Disposition: HOME SELF-CARE
== END 2021-07-13 14:22 | disposition home or self-care (01) | DRG 389 ==
LOC: EC 10:14 → 4SSUR 12:56
PROVIDERS: ADMIT Hospitalist; ATTEND Hospitalist
DX: K56.7 Ileus, unspecified (principal); N17.9 Acute kidney failure, unspecified; E87.1 Hypo-osmolality and hyponatremia; I50.22 Chronic systolic (congestive) heart failure; C90.00 Multiple myeloma not having achieved remission; E85.4 Organ-limited amyloidosis; I43 Cardiomyopathy in diseases classified elsewhere; R18.8 Other ascites; K59.00 Constipation, unspecified; F17.210 Nicotine dependence, cigarettes, uncomplicated; K21.9 Gastro-esophageal reflux disease without esophagitis; I25.10 Atherosclerotic heart disease of native coronary artery without angina pectoris; I25.5 Ischemic cardiomyopathy; Z79.82 Long term (current) use of aspirin; Z79.899 Other long term (current) drug therapy; Z86.73 Personal history of transient ischemic attack (TIA), and cerebral infarction without residual deficits; Z90.49 Acquired absence of other specified parts of digestive tract; Z91.018 Allergy to other foods
CPT/HCPCS: 36415; 74019; 74021; 74177; 80048; 80053; 81003; 82150; 83605; 83690; 85025; 85610; 87040; 96361; 96365; 96375; 96376; 99285

== ENCOUNTER 2021-08-24 18:09 | Inpatient (IN) | payer BC ==
[2021-08-24] MEDS ORDERED: SODIUM CHLORIDE 0.9% 1,000 ML IV STA (18:50)
[2021-08-24] MEDS ORDERED: SODIUM CHLORIDE 0.9% 500 ML 500 ML IV STA (18:50)
--- NOTE | 2021-08-24 18:56 | ED ---
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 He was out for a brief period time per his . At home he is found have a blood pressure of 76/54 was persuaded to come in by his now for evaluation and Dr. Majano. He initially declined coming in this morning. He has shortness of breath and some chest discomfort. He states now he only has back discomfort. He does have a history of CHF and is on sparing diuretics. No pain associated only does have some headache. Also p ain in the right side of his neck MD Complaint: chest pain, other - Related Data Home Medications Medication Instructions Recorded Confirmed Acyclovir [Zovirax] 400 mg PO BID 08/24/21 08/24/21 Bumetanide [BUMEX] 2 mg PO HS PRN 08/24/21 08/24/21 DULoxetine HCL [Cymbalta] 30 mg PO HS 08/24/21 08/24/21 Docusate [Colace] 200 mg PO DAILY 08/24/21 08/24/21 Lactulose 10 gm PO DAILY PRN 08/24/21 08/24/21 Omeprazole 40 mg PO DAILY 08/24/21 08/24/21 Ondansetron [Zofran] 4 mg PO QID PRN 08/24/21 08/24/21 Potassium Chloride ER [K-Dur 20] 20 meq PO DAILY 08/24/21 08/24/21 lisinopriL [Zestril] 2.5 mg PO HS 08/24/21 08/24/21 Previous Rx's Medication Instructions Recorded Acetaminophen Tab [Tylenol] 650 mg PO Q6HR PRN tab 06/24/21 Bumetanide [BUMEX] 2 mg PO DAILY #0 07/13/21 Allergies Allergy/AdvReac Type Severity Reaction Status Date / Time strawberry AdvReac Rash/Hives Verified 08/24/21 20:36 Review of Systems ROS Statement: Those systems with pertinent positive or pertinent negative responses have been documented in the HPI. ROS Other: All systems not noted in ROS Statement are negative. Past Medical History Past Medical History: Cancer, Heart Failure, GERD/Reflux, Syncope Additional Past Medical History / Comment(s): Cardiac Amylodosis History of Any Multi-Drug Resistant Organisms: None Reported Past Surgical History: Cholecystectomy, Heart Catheterization Past Anesthesia/Blood Transfusion Reactions: No Reported Reaction Past Psychological History: No Psychological Hx Reported Smoking Status: Current some day smoker Past Alcohol Use History: None Reported Past Drug Use History: None Reported General Exam - General Exam Comments Initial Comments: This is a well-developed sec appearing male who is awake alert oriented 4 Limitations: no limitations General appearance: alert, in no apparent distress, other (Tenderness to palpation of left occiput no step-off no crepitation no open wounds.) Head exam: Present: atraumatic, normocephalic, normal inspection Eye exam: Present: normal appearance, PERRL, EOMI. Absent: scleral icterus, conjunctival injection, periorbital swelling ENT exam: Present: mucous membranes dry Neck exam: Present: normal inspection, tenderness (Some mild tenderness to the right side of the posterior neck no definite midline tenderness.), full ROM. Absent: meningismus, lymphadenopathy Respiratory exam: Present: normal lung sounds bilaterally. Absent: respiratory distress, wheezes, rales, rhonchi, stridor Cardiovascular Exam: Present: regular rate, normal rhythm, normal heart sounds. Absent: systolic murmur, diastolic murmur, rubs, gallop, clicks GI/Abdominal exam: Present: soft, normal bowel sounds. Absent: distended, tenderness, guarding, rebound, rigid Extremities exam: Present: normal inspection, full ROM, normal capillary refill. Absent: tenderness, pedal edema, joint swelling, calf tenderness Back exam: Present: normal inspection Neurological exam: Present: alert, oriented X3, CN II-XII intact Psychiatric exam: Present: normal affect, normal mood Skin exam: Present: warm, dry, intact, normal color. Absent: rash Course Vital Signs 08/24/21 08/24/21 08/24/21 18:15 19:00 20:01 Temperature 98.4 F Pulse Rate 92 86 Pulse Rate [ 86 Property Accountant ] Respiratory 16 20 20 Rate Blood Pressure 74/54 82/56 O2 Sat by Pulse 98 97 Oximetry 08/24/21 08/24/21 08/24/21 20:11 20:26 22:00 Temperature Pulse Rate 86 86 89 Pulse Rate [ Property Accountant ] Respiratory 23 18 Rate Blood Pressure 71/48 76/55 80/55 O2 Sat by Pulse 96 100 95 Oximetry - Reevaluation(s) Reevaluation #1: 08/24/21 21:24 Patient was noted be hypotensive but he states his normal blood pressures in the high 80s to low 90s systolic. He did have back pain. IV fluids are given and later he states he felt much improved the. Reevaluation #2: 08/24/21 23:06 Patient remains asymptomatic at this time I did discuss the patient's disposition with the patient family. Reevaluation #3: 08/24/21 23:15 The patient does demonstrate an elevated white blood cell count is likely reactive is no overt infectious processes identified at this time Chest Pain MDM - MDM Imaging reviewed and is currently medically no acute processes otherwise. The patient is asymptomatic this time he does have elevated BNP as well as elevated troponin I did review the labs from [facility] in [place]. Patient does have evidence of persistent bleeding elevated cardiac enzymes/troponin though today's number a be elevated. EKG showed nonspecific changes in V2 otherwise similar to previous EKGs. I did discuss the case with Dr. Avila as well as Dr. Taylor patient will be gently hydrated at this time that attempt to avoid pressors. Patient does have normally low blood pressure running in the 80s to low 90s. Critical Care Time Critical Care Time: Yes Total Critical Care Time: 35 Critical Care Time: Critical care time includes initial presentation with history physical labs x- rays multiple reevaluation the patient multiple discussion with the patient family as well as with multiple physicians. Review of old charting was available. Disposition Clinical Impression: Non-STEMI (non-ST elevated myocardial infarction), Elevated brain natriuretic peptide (BNP) level, Hypotensive episode, Dehydration, Cardiac amyloidosis Disposition: ADMITTED IP TO THIS HOSP Condition: Fair Referrals: Xin Mills MD [Primary Care Provider] - 1-2 days Decision Date: 08/24/21 Decision Time: 22:00
[2021-08-24 19:09] LABS: Albumin 3.4 g/dL (3.5-5.0); Calcium 8.6 mg/dL (8.4-10.2); Magnesium 2.2 mg/dL (1.6-2.3); Total Protein 6.1 g/dL (6.3-8.2)
[2021-08-24 19:11] LABS: Anisocytosis Slight; HCT 36.9 % (39.0-53.0); HGB 12.5 gm/dL (13.0-17.5); MCH 32.2 pg (25.0-35.0); MCHC 33.9 g/dL (31.0-37.0); Macrocytosis Slight; Mean Platelet Volume 16.4; RBC 3.88 m/uL (4.30-5.90); RDW 18.5 % (11.5-15.5)
[2021-08-24 19:18] LABS: Potassium 4.1 mmol/L (3.5-5.1)
--- NOTE | 2021-08-24 19:26 | CT ---
EXAMINATION TYPE: CT brain cspine wo con DATE OF EXAM: 08/24/2021 COMPARISON: 06/21/2021 CT brain HISTORY: syncope CT DLP: 1381.6 mGycm Automated exposure control for dose reduction was used. Images of the brain and cervical spine obtained with no contrast. Ventricles have normal size. There is no mass effect or midline shift. No sign of intracranial hemorr jeannie. Calvarium is intact. Skull base is intact. There is normal aeration of the mastoid sinuses. The cervical vertebra have normal spacing and alignment. Posterior elements are intact. Prevertebral soft tissues are intact. No evidence of focal bone destruction. Facet joints are intact. There is minimal spurring of the endplates in the cervical spine. IMPRESSION: Negative CT scan of the brain. No change compared to old exam. Minor degenerative disc changes in the cervical spine. No fracture.
--- NOTE | 2021-08-24 19:37 | XR ---
EXAMINATION TYPE: XR chest 2V DATE OF EXAM: 08/24/2021 COMPARISON: 06/21/2021 HISTORY: Chest pain TECHNIQUE: 2 views FINDINGS: Heart is enlarged. No heart failure. There are no hilar masses. Costophrenic angles are sammy ar. Bony thorax is intact. IMPRESSION: Cardiomegaly. No change. No acute lung disease.
[2021-08-24 20:10] LABS: Band Neutrophils % 1 %; Eosinophils # (M) 0.12 k/uL (0-0.7); Monocytes # (M) 0.85 k/uL (0-1.0); Neutrophils % (M) 82 %; Nucleated Red Blood Cells 1 /100 WBC (0-0); Total Cells Counted 100
[2021-08-24 20:11] LABS: Lymphocytes # (M) 1.09 k/uL (1.0-4.8); WBC 12.1 k/uL (3.8-10.6)
[2021-08-24 20:12] LABS: Large Platelets Present; Platelet Count 69 k/uL (150-450)
[2021-08-24 20:25] LABS: Partial Thromboplastin Time 25.5 sec (22.0-30.0); Prothrombin Time 10.8 sec (9.0-12.0)
[2021-08-25] MEDS ORDERED: ONDANSETRON 4 MG TAB PO PRN
[2021-08-25] MEDS ORDERED: NITROGLYCERIN SL TABS 0.4 MG TAB SUBLINGUAL PRN
[2021-08-25 00:47] LABS: Glucose,Whole Blood 137 mg/dL (70-110)
[2021-08-25] MEDS: ACETAMINOPHEN TAB 325 MG TAB PO PRN (01:39)
[2021-08-25] MEDS ORDERED: SODIUM CHLORIDE 0.9% 1,000 ML IV ONE (02:48)
[2021-08-25] MEDS ORDERED: NOREPINEPHRIN 4 MG-0.9% NS PMX 0 MG/0 ML ML IV ONE (05:02)
[2021-08-25] MEDS: NOREPINEPHRINE 4 MG in SODIUM CHLORIDE 0.9% 250 ML IV SCH (05:23)
[2021-08-25 06:29] LABS: Albumin 3.1 g/dL (3.5-5.0); Calcium 7.8 mg/dL (8.4-10.2); Potassium 3.8 mmol/L (3.5-5.1); Total Bilirubin 2.2 mg/dL (0.2-1.3); Total Protein 5.7 g/dL (6.3-8.2)
[2021-08-25 07:27] LABS: Anisocytosis Slight; Basophils # (A) 0.1 k/uL (0-0.2); Basophils % (A) 0 %; Eosinophils % (A) 0 %; HCT 36.9 % (39.0-53.0); HGB 12.2 gm/dL (13.0-17.5); Lymphocytes % (A) 8 %; MCH 31.8 pg (25.0-35.0); MCV 96.4 fL (80.0-100.0); Macrocytosis Slight; Mean Platelet Volume 17.3; Monocytes # (A) 0.6 k/uL (0-1.0); Monocytes % (A) 5 %; Neutrophils # (A) 10.4 k/uL (1.3-7.7); Neutrophils % (A) 85 %; RBC 3.83 m/uL (4.30-5.90); RDW 18.1 % (11.5-15.5); WBC 12.1 k/uL (3.8-10.6)
[2021-08-25 07:54] LABS: Platelet Count 69 k/uL (150-450)
[2021-08-25] MEDS: PANTOPRAZOLE 40 MG TABLET PO SCH (08:15)
[2021-08-25] MEDS: DOCUSATE 100 MG CAP PO SCH (08:15)
[2021-08-25] MEDS: POTASSIUM CHLORIDE ER 20 MEQ TAB.ER PO SCH (08:17)
[2021-08-25] MEDS: ACYCLOVIR 200 MG CAP PO SCH ×3 (08:17→20:40)
[2021-08-25] MEDS ORDERED: ASPIRIN 325 MG TAB PO SCH (09:00)
[2021-08-25] MEDS ORDERED: LACTULOSE 20 GM/30 ML CUP PO PRN (09:00)
--- NOTE | 2021-08-25 09:13 | P.CRDCN ---
History of Present Illness Consult date: 08/25/21 Consult reason: sycope History of present illness: The patient is a 51-year-old male with extensive cardiac history including cardiac amyloid who follows in the office with Dr. Majano. The patient presented to the hospital after experiencing a syncopal spell at home. The patient states he was ambulating through his house when he became extremely dizzy. He states he felt as though his "knees gave out" in the next thing he knew he was waking up on the floor. [facility] did [facility] and it was recommended that he come to the emergency room. According to the patient on arrival his systolic pressure was in the 70s. The patient is currently undergoing chemotherapy for multiple myeloma. He states they added an additional chemotherapy within the last week and he has become progressively more weak and lightheaded thereafter. DIAGNOSTICS: EKG shows sinus rhythm without ST or T-wave abnormalities Chest x-ray shows cardiomegaly. No active pulmonary disease. Lab data: WBC 12.1, hemoglobin 12.2, hematocrit 36.9, platelet 69, sodium 124, potassium 3.8, BUN 40, creatinine 1.13, magnesium 2.2 and AST 37, ALT 35, ALP 142, troponin 0.8, 0.7, 0.6, BNP 37,000 Vital signs blood pressure 95/65, pulse 83, respiratory rate 17, SpO2 98% on 2 L nasal cannula PAST MEDICAL HISTORY: Cardiac amyloid, cardiomyopathy, multiple myeloma REVIEW OF SYSTEMS: No fever or chills. No cough or expectoration. No diaphoresis. Patient denies headache, dizziness, blurred vision, double vision. Patient denies any stomach discomfort. No nausea, vomiting. No hematochezia. No hematemesis. Denies any black stools or blood in his stools. Denies dysuria or hematuria. No chest pain or chest pressure. Positive for weakness and fatigue. No current shortness of breath PHYSICAL EXAMINATION: This is a 51-year-old ill-appearing male in no apparent distress at the time of my examination. HEENT: Head is atraumatic, normocephalic. Pupils are equal, round. Sclerae anicteric. Conjunctivae are clear. Mucous membranes of the mouth are moist. Neck is supple. There is no jugular venous distention. No carotid bruit is heard. CHEST EXAMINATION: Lungs are clear to auscultation. No chest wall tenderness is noted on palpation or with deep breathing. HEART EXAMINATION: Heart regular rate and rhythm. S1, S2 heard. Soft systolic murmur. No gallops or rub. ABDOMEN: Soft, nontender. Bowel sounds are heard. No organomegaly noted. EXTREMITIES: 2+ peripheral pulses. 2+ peripheral edema. no calf tenderness noted. NEUROLOGIC EXAMINATION: Patient is awake, alert and oriented x3. 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 Past Medical History Past Medical History: Cancer, Heart Failure, GERD/Reflux, Syncope Additional Past Medical History / Comment(s): Cardiac Amylodosis, neck systolic and diastolic heart failure. The patient has a mother to seek improvement of the LV function with an ejection fraction of 30-35% long with global hypokinesis, moderate to severe mitral regurgitation, moderate degree of pulmonary hypertension with a PA pressure of 47, chronic hyponatremia, undergoing workup for cardiac amyloidosis status post biopsy. Multiple myeloma, patient is starting chemotherapy. gastroesophageal reflux disease. TIA History of Any Multi-Drug Resistant Organisms: None Reported Past Surgical History: Cholecystectomy, Heart Catheterization Past Anesthesia/Blood Transfusion Reactions: No Reported Reaction Past Psychological History: No Psychological Hx Reported Smoking Status: Current some day smoker Past Alcohol Use History: None Reported Past Drug Use History: None Reported Additional Drug Use History / Comment(s): reports he is a half a pack per day cigarette smoker, states he has been trying to quit Medications and Allergies Home Medications Medication Instructions Recorded Confirmed Type Acetaminophen Tab [Tylenol] 650 mg PO Q6HR PRN tab 06/24/21 08/24/21 Rx Bumetanide [BUMEX] 2 mg PO DAILY #0 07/13/21 08/24/21 Rx Acyclovir [Zovirax] 400 mg PO BID 08/24/21 08/24/21 History Bumetanide [BUMEX] 2 mg PO HS PRN 08/24/21 08/24/21 History DULoxetine HCL [Cymbalta] 30 mg PO HS 08/24/21 08/24/21 History Docusate [Colace] 200 mg PO DAILY 08/24/21 08/24/21 History Lactulose 10 gm PO DAILY PRN 08/24/21 08/24/21 History Omeprazole 40 mg PO DAILY 08/24/21 08/24/21 History Ondansetron [Zofran] 4 mg PO QID PRN 08/24/21 08/24/21 History Potassium Chloride ER [K-Dur 20] 20 meq PO DAILY 08/24/21 08/24/21 History lisinopriL [Zestril] 2.5 mg PO HS 08/24/21 08/24/21 History Allergies Allergy/AdvReac Type Severity Reaction Status Date / Time strawberry AdvReac Rash/Hives Verified 08/24/21 20:36 Physical Exam Vitals: Vital Signs Temp Pulse Pulse Resp BP Pulse Ox 08/25/21 08:30 96.2 F L 83 17 95/65 98 08/25/21 08:00 82 14 92/59 98 08/25/21 07:30 81 14 90/60 98 08/25/21 07:00 82 14 89/61 99 08/25/21 06:45 82 15 89/63 08/25/21 06:30 81 21 91/62 98 08/25/21 06:15 89 21 95/66 92 L 08/25/21 06:00 79 16 97/61 97 08/25/21 05:45 81 30 H 96/64 95 08/25/21 05:30 82 25 H 91/65 97 08/25/21 05:15 84 20 75/53 08/25/21 05:00 81 10 L 98 08/25/21 04:45 82 18 77/57 87 L 08/25/21 04:30 81 10 L 72/57 08/25/21 04:20 81 11 L 97 08/25/21 04:10 82 10 L 96 08/25/21 04:00 96.2 F L 83 21 79/55 96 08/25/21 03:50 80 15 97 08/25/21 03:40 82 15 96 08/25/21 03:30 81 13 80/55 97 08/25/21 03:20 82 11 L 96 08/25/21 03:10 80 11 L 79/54 78 L 08/25/21 03:00 82 23 76/53 99 08/25/21 02:50 83 9 L 76/53 08/25/21 02:40 84 12 08/25/21 02:30 85 17 85/55 08/25/21 02:20 85 10 L 85/55 97 08/25/21 02:10 85 12 79/57 99 08/25/21 02:00 85 19 85/59 08/25/21 01:50 87 15 85/59 99 08/25/21 01:40 87 20 83/56 99 08/25/21 01:30 86 13 81/56 99 08/25/21 01:20 87 12 81/56 100 08/25/21 01:10 87 16 85/59 99 08/25/21 01:00 97.5 F L 88 17 84/57 98 08/25/21 00:50 14 81/58 08/25/21 00:47 79 L 08/25/21 00:28 97.8 F 81 20 81/60 96 08/24/21 23:38 97.5 F L 08/24/21 23:36 90 80/58 97 08/24/21 23:00 98.2 F 90 20 78/49 95 08/24/21 22:00 89 18 80/55 95 08/24/21 20:26 86 22 76/55 100 08/24/21 20:11 86 23 71/48 96 08/24/21 20:01 86 20 82/56 97 08/24/21 19:00 86 20 08/24/21 18:15 98.4 F 92 16 74/54 98 Intake and Output 08/24/21 08/25/21 08/25/21 22:59 06:59 14:59 Intake Total 1650 186.238 Output Total 250 Balance 1400 186.238 Intake: IV 1000 Sodium Chloride 0.9% 1, 1000 000 ml @ 999 mls/hr IV . Q1H1M [facility] Rx#:[id number] Intake, IV Titration 650 186.238 Amount Norepinephrine 4 mg In 56.238 Sodium Chloride 0.9% 250 ml @ 0.05 MCG/KG/MIN 16. 65 mls/hr IV .[id number] [facility] Rx#:[id number] Sodium Chloride 0.9% 1, 650 130 000 ml @ 130 mls/hr IV . Q7H42M [facility] Rx#:[id number] Output: Urine 250 Other: Voiding Method Urinal # Voids 1 0 Weight 82.554 kg 87.4 kg Results 08/25/21 05:43 08/25/21 05:43 Cardiac Enzymes 08/24/21 08/24/21 08/25/21 Range/Units 18:51 18:51 00:00 AST 46 (17-59) U/L Troponin I 0.825 H* 0.742 H* (0.000-0.034) ng/mL 08/25/21 08/25/21 Range/Units 02:27 05:43 AST 37 (17-59) U/L Troponin I 0.696 H* (0.000-0.034) ng/mL Coagulation 08/24/21 Range/Units 18:51 PT 10.8 (9.0-12.0) sec APTT 25.5 (22.0-30.0) sec CBC 08/24/21 08/25/21 Range/Units 18:51 05:43 WBC 12.1 H 12.1 H (3.8-10.6) k/uL RBC 3.88 L 3.83 L (4.30-5.90) m/uL Hgb 12.5 L 12.2 L (13.0-17.5) gm/dL Hct 36.9 L 36.9 L (39.0-53.0) % Plt Count 69 L D (150-450) k/uL Comprehensive Metabolic Panel 08/24/21 08/25/21 Range/Units 18:51 05:43 Sodium 121 L 124 L (137-145) mmol/L Potassium 4.1 3.8 (3.5-5.1) mmol/L Chloride 87 L 91 L (98-107) mmol/L Carbon Dioxide 28 26 (22-30) mmol/L BUN 44 H 40 H (9-20) mg/dL Creatinine 1.15 1.13 (0.66-1.25) mg/dL Glucose 79 98 (74-99) mg/dL Calcium 8.6 7.8 L (8.4-10.2) mg/dL AST 46 37 (17-59) U/L ALT 37 35 (4-49) U/L Alkaline Phosphatase 130 H 142 H (38-126) U/L Total Protein 6.1 L 5.7 L (6.3-8.2) g/dL Albumin 3.4 L 3.1 L (3.5-5.0) g/dL Current Medications Generic Name Dose Route Start Last Admin Trade Name Freq PRN Reason Stop Dose Admin Acetaminophen 650 mg 08/25/21 06:00 08/25/21 01:39 Acetaminophen Tab 325 Mg Tab PO 650 mg Q6HR PRN Administration Fever and/ or Pain Acyclovir 400 mg 08/25/21 09:00 Acyclovir 200 Mg Cap PO BID [facility] Docusate Sodium 200 mg 08/25/21 09:00 08/25/21 08:15 Docusate 100 Mg Cap PO 200 mg DAILY [facility] Administration Duloxetine HCl 30 mg 08/25/21 21:00 Duloxetine Hcl 30 Mg Capsule.Dr PO HS [facility] Norepinephrine Bitartrate 4 mg 254 mls @ 16.65 mls/hr 08/25/21 05:00 08/25/21 08:49 / Sodium Chloride IV 0.04 mcg/kg/min .[id number] [facility] 13.32 mls/hr Titration Protocol 0.05 MCG/KG/MIN Sodium Chloride 1,000 mls @ 20 mls/hr 08/25/21 09:00 Saline 0.9% IV .Q24H [facility] Lactulose 10 gm 08/25/21 09:00 Lactulose 20 Gm/30 Ml Cup PO DAILY PRN Constipation Nitroglycerin 0.4 mg 08/25/21 00:00 Nitroglycerin Sl Tabs 0.4 Mg Tab SUBLINGUAL Q5M PRN Chest Pain Ondansetron HCl 4 mg 08/25/21 00:00 08/25/21 08:23 Ondansetron 4 Mg Tab PO 4 mg QID PRN Administration Nausea Pantoprazole Sodium 40 mg 08/25/21 09:00 08/25/21 08:15 Pantoprazole 40 Mg Tablet PO 40 mg DAILY [facility] Administration Potassium Chloride 20 meq 08/25/21 09:00 08/25/21 08:17 Potassium Chloride Er 20 Meq Tab.Er PO 20 meq DAILY [facility] Administration Intake and Output 08/24/21 08/25/21 08/25/21 22:59 06:59 14:59 Intake Total 1650 186.238 Output Total 250 Balance 1400 186.238 Intake: IV 1000 Sodium Chloride 0.9% 1, 1000 000 ml @ 999 mls/hr IV . Q1H1M [facility] Rx#:[id number] Intake, IV Titration 650 186.238 Amount Norepinephrine 4 mg In 56.238 Sodium Chloride 0.9% 250 ml @ 0.05 MCG/KG/MIN 16. 65 mls/hr IV .[id number] [facility] Rx#:[id number] Sodium Chloride 0.9% 1, 650 130 000 ml @ 130 mls/hr IV . Q7H42M [facility] Rx#:[id number] Output: Urine 250 Other: Voiding Method Urinal # Voids 1 0 Weight 82.554 kg 87.4 kg 08/25/21 05:43 08/25/21 05:43
[2021-08-25 09:35] LABS: Large Platelets Present
[2021-08-25 09:40] LABS: Chol/HDL Ratio 3.24 Ratio; LDL Cholesterol,Calculated 76.3 mg/dL (0.0-131.0)
[2021-08-25] MEDS: FUROSEMIDE 10 MG/ML 2 ML VIAL IV SCH ×2 (10:40→20:41)
--- NOTE | 2021-08-25 11:43 | P.HPIM ---
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 he was to [place] for multiple myeloma and is on treatment for that and patient did have improvement in the light chain levels and patient was brought into ER because of hypotension patient does have significant peripheral edema elevated BNP found to have a very low blood pressure patient doesn't have any fever chills no evidence of sepsis at this time patient is on acyclovir as an outpatient for prophylaxis secondary to chemotherapy. Patient takes Bumex at home along with lisinopril patient is presently on 2 L of oxygen, patient's creatinine is around 1.1 which is around his baseline. Patient had mild shortness of breath Orthopnea proximal nocturnal dyspnea mildly elevated troponin of 0.6 and 6. Pat ient has low sodium of 124 REVIEW OF SYSTEMS: CONSTITUTIONAL: No fever, no malaise, no fatigue. HEENT: No recent visual problems or hearing problems. Denied any sore throat. CARDIOVASCULAR: No chest pain, orthopnea, PND, no palpitations, no syncope. PULMONARY: No shortness of breath, no cough, no hemoptysis. GASTROINTESTINAL: No diarrhea, no nausea, no vomiting, no abdominal pain. NEUROLOGICAL: No headaches, no weakness, no numbness. HEMATOLOGICAL: Denies any bleeding or petechiae. GENITOURINARY: Denies any burning micturition, frequency, or urgency. MUSCULOSKELETAL/RHEUMATOLOGICAL: Denies any joint pain, swelling, or any muscle pain. ENDOCRINE: Denies any polyuria or polydipsia. The rest of the 14-point review of systems is negative. PHYSICAL EXAMINATION: GENERAL: The patient is alert and oriented x3, not in any acute distress. Well developed, well nourished. HEENT: Pupils are round and equally reacting to light. EOMI. No scleral icterus. No conjunctival pallor. Normocephalic, atraumatic. No pharyngeal erythema. No thyromegaly. CARDIOVASCULAR: S1 and S2 present. No murmurs, rubs, or gallops. PULMONARY: Chest is clear to auscultation, no wheezing or crackles. ABDOMEN: Soft, nontender, nondistended, normoactive bowel sounds. No palpable organomegaly. MUSCULOSKELETAL: No joint swelling or deformity. EXTREMITIES: No cyanosis, clubbing,-bilateral pitting pedal edema 2+ NEUROLOGICAL: Gross neurological examination did not reveal any focal deficits. SKIN: No rashes. Assessment and plan -Hypertension, dizziness and 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 patient is presently on levofloxacin which will be continued patient had ejection fraction of 30% patient also has restrictive any myopathy secondary to amyloidosis. Lisinopril will be held, patient is on norepinephrine and gentle diuresis. No evidence of infection patient is on prophylactic acyclovir which will be continued -Hypervolemic hyponatremia expected to improve with diuresis -Mildly elevated troponins secondary to heart failure Hypercholesterol failure both systolic dysfunction as well as diastolic dysfunction -Multiple myeloma leading to amyloidosis for which patient is undergoing chemotherapy patient had improvement in light chains -Severe mitral valvular disease again secondary to amyloidosis -Depression next and epigastric region reflux disease DVT prophylaxis: Subcutaneous heparin Past Medical History Past Medical History: Cancer, Heart Failure, GERD/Reflux, Syncope Additional Past Medical History / Comment(s): Cardiac Amylodosis, neck systolic and diastolic heart failure. The patient has a mother to seek improvement of the LV function with an ejection fraction of 30-35% long with global hypokinesi s, moderate to severe mitral regurgitation, moderate degree of pulmonary hypertension with a PA pressure of 47, chronic hyponatremia, undergoing workup for cardiac amyloidosis status post biopsy. Multiple myeloma, patient is starting chemotherapy. gastroesophageal reflux disease. TIA History of Any Multi-Drug Resistant Organisms: None Reported Past Surgical History: Cholecystectomy, Heart Catheterization Past Anesthesia/Blood Transfusion Reactions: No Reported Reaction Past Psychological History: No Psychological Hx Reported Smoking Status: Current some day smoker Past Alcohol Use History: None Reported Past Drug Use History: None Reported Additional Drug Use History / Comment(s): reports he is a half a pack per day cigarette smoker, states he has been trying to quit Medications and Allergies Home Medications Medication Instructions Recorded Confirmed Type Acetaminophen Tab [Tylenol] 650 mg PO Q6HR PRN tab 06/24/21 08/24/21 Rx Bumetanide [BUMEX] 2 mg PO DAILY #0 07/13/21 08/24/21 Rx Acyclovir [Zovirax] 400 mg PO BID 08/24/21 08/24/21 History Bumetanide [BUMEX] 2 mg PO HS PRN 08/24/21 08/24/21 History DULoxetine HCL [Cymbalta] 30 mg PO HS 08/24/21 08/24/21 History Docusate [Colace] 200 mg PO DAILY 08/24/21 08/24/21 History Lactulose 10 gm PO DAILY PRN 08/24/21 08/24/21 History Omeprazole 40 mg PO DAILY 08/24/21 08/24/21 History Ondansetron [Zofran] 4 mg PO QID PRN 08/24/21 08/24/21 History Potassium Chloride ER [K-Dur 20] 20 meq PO DAILY 08/24/21 08/24/21 History lisinopriL [Zestril] 2.5 mg PO HS 08/24/21 08/24/21 History Allergies Allergy/AdvReac Type Severity Reaction Status Date / Time strawberry AdvReac Rash/Hives Verified 08/24/21 20:36 Physical Exam Vitals: Vital Signs Temp Pulse Pulse Resp BP Pulse Ox 08/25/21 11:00 85 17 93/65 97 08/25/21 10:30 84 23 95/59 91 L 08/25/21 10:00 80 12 88/61 96 08/25/21 09:30 84 13 89/57 97 08/25/21 09:00 84 18 93/59 08/25/21 08:30 96.2 F L 83 17 95/65 98 08/25/21 08:00 82 17 92/59 97 08/25/21 07:30 81 14 90/60 98 08/25/21 07:00 82 14 89/61 99 08/25/21 06:45 82 15 89/63 08/25/21 06:30 81 21 91/62 98 08/25/21 06:15 89 21 95/66 92 L 08/25/21 06:00 79 16 97/61 97 08/25/21 05:45 81 30 H 96/64 95 08/25/21 05:30 82 25 H 91/65 97 08/25/21 05:15 84 20 75/53 08/25/21 05:00 81 10 L 98 08/25/21 04:45 82 18 77/57 87 L 08/25/21 04:30 81 10 L 72/57 08/25/21 04:20 81 11 L 97 08/25/21 04:10 82 10 L 96 08/25/21 04:00 96.2 F L 83 21 79/55 96 08/25/21 03:50 80 15 97 08/25/21 03:40 82 15 96 08/25/21 03:30 81 13 80/55 97 08/25/21 03:20 82 11 L 96 08/25/21 03:10 80 11 L 79/54 78 L 08/25/21 03:00 82 23 76/53 99 08/25/21 02:50 83 9 L 76/53 08/25/21 02:40 84 12 08/25/21 02:30 85 17 85/55 08/25/21 02:20 85 10 L 85/55 97 08/25/21 02:10 85 12 79/57 99 08/25/21 02:00 85 19 85/59 08/25/21 01:50 87 15 85/59 99 08/25/21 01:40 87 20 83/56 99 08/25/21 01:30 86 13 81/56 99 08/25/21 01:20 87 12 81/56 100 08/25/21 01:10 87 16 85/59 99 08/25/21 01:00 97.5 F L 88 17 84/57 98 08/25/21 00:50 14 81/58 08/25/21 00:47 79 L 08/25/21 00:28 97.8 F 81 20 81/60 96 08/24/21 23:38 97.5 F L 08/24/21 23:36 90 80/58 97 08/24/21 23:00 98.2 F 90 20 78/49 95 08/24/21 22:00 89 18 80/55 95 08/24/21 20:26 86 22 76/55 100 08/24/21 20:11 86 23 71/48 96 08/24/21 20:01 86 20 82/56 97 08/24/21 19:00 86 20 08/24/21 18:15 98.4 F 92 16 74/54 98 Intake and Output 08/24/21 08/25/21 08/25/21 22:59 06:59 14:59 Intake Total 1650 376.238 Output Total 250 Balance 1400 376.238 Intake: IV 1000 Sodium Chloride 0.9% 1, 1000 000 ml @ 999 mls/hr IV . Q1H1M [facility] Rx#:[id number] Intake, IV Titration 650 376.238 Amount Norepinephrine 4 mg In 56.238 Sodium Chloride 0.9% 250 ml @ 0.05 MCG/KG/MIN 16. 65 mls/hr IV .[id number] [facility] Rx#:[id number] Sodium Chloride 0.9% 1, 650 130 000 ml @ 130 mls/hr IV . Q7H42M [facility] Rx#:[id number] Sodium Chloride 0.9% 1, 190 000 ml @ 20 mls/hr IV . Q24H [facility] Rx#:[id number] Output: Urine 250 Other: Voiding Method Urinal Urinal # Voids 1 0 Weight 82.554 kg 87.4 kg 87.4 kg Results CBC & Chem 7: 08/25/21 05:43 08/25/21 05:43 Labs: Abnormal Lab Results - Last 24 Hours (Table) 08/24/21 08/24/21 08/24/21 Range/Units 18:51 18:51 18:51 WBC 12.1 H (3.8-10.6) k/uL RBC 3.88 L (4.30-5.90) m/uL Hgb 12.5 L (13.0-17.5) gm/dL Hct 36.9 L (39.0-53.0) % RDW 18.5 H (11.5-15.5) % Plt Count 69 L D (150-450) k/uL Neutrophils # (1.3-7.7) k/uL Neutrophils # (Manual) 10.00 H (1.3-7.7) k/uL Nucleated RBCs 1 H (0-0) /100 WBC Sodium 121 L (137-145) mmol/L Chloride 87 L (98-107) mmol/L BUN 44 H (9-20) mg/dL POC Glucose (mg/dL) (70-110) mg/dL Calcium (8.4-10.2) mg/dL Total Bilirubin 2.0 H (0.2-1.3) mg/dL Alkaline Phosphatase 130 H (38-126) U/L Troponin I 0.825 H* (0.000-0.034) ng/mL Total Protein 6.1 L (6.3-8.2) g/dL Albumin 3.4 L (3.5-5.0) g/dL 08/25/21 08/25/21 08/25/21 Range/Units 00:00 00:45 02:27 WBC (3.8-10.6) k/uL RBC (4.30-5.90) m/uL Hgb (13.0-17.5) gm/dL Hct (39.0-53.0) % RDW (11.5-15.5) % Plt Count (150-450) k/uL Neutrophils # (1.3-7.7) k/uL Neutrophils # (Manual) (1.3-7.7) k/uL Nucleated RBCs (0-0) /100 WBC Sodium (137-145) mmol/L Chloride (98-107) mmol/L BUN (9-20) mg/dL POC Glucose (mg/dL) 137 H (70-110) mg/dL Calcium (8.4-10.2) mg/dL Total Bilirubin (0.2-1.3) mg/dL Alkaline Phosphatase (38-126) U/L Troponin I 0.742 H* 0.696 H* (0.000-0.034) ng/mL Total Protein (6.3-8.2) g/dL Albumin (3.5-5.0) g/dL 08/25/21 08/25/21 Range/Units 05:43 05:43 WBC 12.1 H (3.8-10.6) k/uL RBC 3.83 L (4.30-5.90) m/uL Hgb 12.2 L (13.0-17.5) gm/dL Hct 36.9 L (39.0-53.0) % RDW 18.1 H (11.5-15.5) % Plt Count 69 L (150-450) k/uL Neutrophils # 10.4 H (1.3-7.7) k/uL Neutrophils # (Manual) (1.3-7.7) k/uL Nucleated RBCs (0-0) /100 WBC Sodium 124 L (137-145) mmol/L Chloride 91 L (98-107) mmol/L BUN 40 H (9-20) mg/dL POC Glucose (mg/dL) (70-110) mg/dL Calcium 7.8 L (8.4-10.2) mg/dL Total Bilirubin 2.2 H (0.2-1.3) mg/dL Alkaline Phosphatase 142 H (38-126) U/L Troponin I (0.000-0.034) ng/mL Total Protein 5.7 L (6.3-8.2) g/dL Albumin 3.1 L (3.5-5.0) g/dL Thrombosis Risk Factor Assmnt - Choose All That Apply Each Factor Represents 1 point: Age 41-60 years, Obesity (BMI >25), Swollen legs (current) Other Risk Factors: No Other congenital or acquired thrombophilia - If yes, enter type in comment: No Thrombosis Risk Factor Assessment Total Risk Factor Score: 3 Thrombosis Risk Factor Assessment Level: Moderate Risk
--- NOTE | 2021-08-25 12:06 | P.CNPUL ---
History of Present Illness Consult date: 08/25/21 History of present illness: 51-year-old patient was brought into the hospital because of low blood pressure and hypotension. Initially the patient was noted to run a low blood pressure by the and the patient was brought into the emergency department he was found to be hypotensive in the same time he had overt signs of heart failure including peripheral edema, elevated proBNP level, low sodium level and for that reason he was admitted to the intensive care unit. The patient has history of multiple myeloma and amyloidosis and the patient has cardiac amyloid he does have a component of chronic systolic and diastolic heart failure with impaired LV function and an ejection fraction of around 30-35%. The patient has been treated with chemotherapeutic agents on outpatient basis. Exact regimen is not known to me at this point and the patient is a very poor historian and is unable to recall that she was being offered. He has had previous hospitalizations for the same essentially due to hypotension and hyponatremia weakness. In any rate , the patient is currently in the intensive care unit. Overnight, the patient was gently resuscitated with fluids and I added some norepinephrine infusion for hemodynamic support and norepinephrine is running at a low dose at this point in time. The patient adequate urine output. Chest x-ray shows cardiomegaly with pulmonary vascular congestion and the patient has a proBNP level of 37,800. The patient did have also minor troponin leak with troponins being 0.8 and 0.7-0.6 respectively 3. Renal function is stable with a creatinine of 1.1 with a mean of 40 and admission sodium was 121 came back to 124. Cardiac rhythm is sinus. Normal correlation profile. Denies having any angina or palpitation. Denies having any chest pain. No fever or chills. No nausea vomiting or diarrhea or abdominal pain. No chest pain is reported this point in time. Review of Systems Constitutional: Reports fatigue, Reports weakness Eyes: denies as per HPI, denies blurred vision, denies bulging eye, denies decreased vision, denies diplopia, denies discharge, denies dry eye, denies irritation, denies itching, denies pain, denies photophobia, denies loss of peripheral vision, denies loss of vision, denies tunnel vision/blind spots Ears: deny: decreased hearing, ear discharge, earache, tinnitus Ears, nose, mouth and throat: Reports as per HPI Breasts: absent: as per HPI, gynecomastia Cardiovascular: Reports decreased exercise tolerance, Reports dyspnea on exertion Respiratory: Reports dyspnea Gastrointestinal: Reports as per HPI Genitourinary: Reports as per HPI Musculoskeletal: Reports as per HPI, Reports frequent falls Musculoskeletal: bilateral: ankle swelling, absent: ankle pain, ankle stiffness Integumentary: Reports as per HPI Neurological: Reports syncope, Reports weakness Psychiatric: Reports as per HPI Endocrine: Reports as per HPI Hematologic/Lymphatic: Reports as per HPI Allergic/Immunologic: Reports as per HPI Past Medical History Past Medical History: Cancer, Heart Failure, GERD/Reflux, Syncope Additional Past Medical History / Comment(s): Cardiac Amylodosis, neck systolic and diastolic heart failure. The patient has a mother to seek improvement of the LV function with an ejection fraction of 30-35% long with global hypokinesis, moderate to severe mitral regurgitation, moderate degree of pulmonary hypertension with a PA pressure of 47, chronic hyponatremia, undergoing workup for cardiac amyloidosis status post biopsy. Multiple myeloma, patient is starting chemotherapy. gastroesophageal reflux disease. TIA History of Any Multi-Drug Resistant Organisms: None Reported Past Surgical History: Cholecystectomy, Heart Catheterization Past Anesthesia/Blood Transfusion Reactions: No Reported Reaction Past Psychological History: No Psychological Hx Reported Smoking Status: Current some day smoker Past Alcohol Use History: None Reported Past Drug Use History: None Reported Additional Drug Use History / Comment(s): reports he is a half a pack per day cigarette smoker, states he has been trying to quit Medications and Allergies Home Medications Medication Instructions Recorded Confirmed Type Acetaminophen Tab [Tylenol] 650 mg PO Q6HR PRN tab 06/24/21 08/24/21 Rx Bumetanide [BUMEX] 2 mg PO DAILY #0 07/13/21 08/24/21 Rx Acyclovir [Zovirax] 400 mg PO BID 08/24/21 08/24/21 History Bumetanide [BUMEX] 2 mg PO HS PRN 08/24/21 08/24/21 History DULoxetine HCL [Cymbalta] 30 mg PO HS 08/24/21 08/24/21 History Docusate [Colace] 200 mg PO DAILY 08/24/21 08/24/21 History Lactulose 10 gm PO DAILY PRN 08/24/21 08/24/21 History Omeprazole 40 mg PO DAILY 08/24/21 08/24/21 History Ondansetron [Zofran] 4 mg PO QID PRN 08/24/21 08/24/21 History Potassium Chloride ER [K-Dur 20] 20 meq PO DAILY 08/24/21 08/24/21 History lisinopriL [Zestril] 2.5 mg PO HS 08/24/21 08/24/21 History Allergies Allergy/AdvReac Type Severity Reaction Status Date / Time strawberry AdvReac Rash/Hives Verified 08/24/21 20:36 Physical Exam Vitals: Vital Signs Temp Pulse Pulse Resp BP Pulse Ox 08/25/21 08:30 96.2 F L 83 17 95/65 98 08/25/21 08:00 82 14 92/59 98 08/25/21 07:30 81 14 90/60 98 08/25/21 07:00 82 14 89/61 99 08/25/21 06:45 82 15 89/63 08/25/21 06:30 81 21 91/62 98 08/25/21 06:15 89 21 95/66 92 L 08/25/21 06:00 79 16 97/61 97 08/25/21 05:45 81 30 H 96/64 95 08/25/21 05:30 82 25 H 91/65 97 08/25/21 05:15 84 20 75/53 08/25/21 05:00 81 10 L 98 08/25/21 04:45 82 18 77/57 87 L 08/25/21 04:30 81 10 L 72/57 08/25/21 04:20 81 11 L 97 08/25/21 04:10 82 10 L 96 08/25/21 04:00 96.2 F L 83 21 79/55 96 08/25/21 03:50 80 15 97 08/25/21 03:40 82 15 96 08/25/21 03:30 81 13 80/55 97 08/25/21 03:20 82 11 L 96 08/25/21 03:10 80 11 L 79/54 78 L 08/25/21 03:00 82 23 76/53 99 08/25/21 02:50 83 9 L 76/53 08/25/21 02:40 84 12 08/25/21 02:30 85 17 85/55 08/25/21 02:20 85 10 L 85/55 97 08/25/21 02:10 85 12 79/57 99 08/25/21 02:00 85 19 85/59 08/25/21 01:50 87 15 85/59 99 08/25/21 01:40 87 20 83/56 99 08/25/21 01:30 86 13 81/56 99 08/25/21 01:20 87 12 81/56 100 08/25/21 01:10 87 16 85/59 99 08/25/21 01:00 97.5 F L 88 17 84/57 98 08/25/21 00:50 14 81/58 08/25/21 00:47 79 L 08/25/21 00:28 97.8 F 81 20 81/60 96 08/24/21 23:38 97.5 F L 08/24/21 23:36 90 80/58 97 08/24/21 23:00 98.2 F 90 20 78/49 95 08/24/21 22:00 89 18 80/55 95 08/24/21 20:26 86 22 76/55 100 08/24/21 20:11 86 23 71/48 96 08/24/21 20:01 86 20 82/56 97 08/24/21 19:00 86 20 08/24/21 18:15 98.4 F 92 16 74/54 98 Intake and Output 08/24/21 08/25/21 08/25/21 22:59 06:59 14:59 Intake Total 1650 186.238 Output Total 250 Balance 1400 186.238 Intake: IV 1000 Sodium Chloride 0.9% 1, 1000 000 ml @ 999 mls/hr IV . Q1H1M ONE Rx#:[id number] Intake, IV Titration 650 186.238 Amount Norepinephrine 4 mg In 56.238 Sodium Chloride 0.9% 250 ml @ 0.05 MCG/KG/MIN 16. 65 mls/hr IV .[id number] MIGUEL Rx#:[id number] Sodium Chloride 0.9% 1, 650 130 000 ml @ 130 mls/hr IV . Q7H42M STA Rx#:[id number] Output: Urine 250 Other: Voiding Method Urinal # Voids 1 0 Weight 82.554 kg 87.4 kg Gen. appearance, the patient is calm and comfortable likely distress and the patient is currently on 2 L O2 nasal cannula with a pulse ox of 97%, breathing is nonlabored Head exam was generally normal. There was no scleral icterus or corneal arcus. Mucous membranes were moist. Neck was supple and with jugular venous distension, thyromegaly, or carotid bruits. Carotids were easily palpable bilaterally. There was no adenopathy. Lungs sounds are diminished and the patient has some limited bibasilar crackles. Cardiac exam revealed the PMI to be normally situated and sized. The rhythm was regular and no extrasystoles were noted during several minutes of auscultation. The first and second heart sounds were normal and physiologic splitting of the second heart sound was noted. There were no murmurs, rubs, clicks, or gallops. Abdominal exam revealed normal bowel sounds. The abdomen was soft, non-tender, and without masses, organomegaly, or appreciable enlargement of the abdominal aorta. Extremities revealed +1 pitting edema no cyanosis or clubbing. Neurologically, the patient is awake and alert and the patient does not have any focal neurological deficit. Cranial nerves are essentially intact. Examination of the skin revealed no evidence of significant rashes, suspicious appearing nevi or other concerning lesions. Results - Laboratory Findings CBC and BMP: 08/25/21 05:43 08/25/21 05:43 ABG WBC 12.1 k/uL (3.8-10.6) H 08/25/21 05:43 RBC 3.83 m/uL (4.30-5.90) L 08/25/21 05:43 Hgb 12.2 gm/dL (13.0-17.5) L 08/25/21 05:43 Hct 36.9 % (39.0-53.0) L 08/25/21 05:43 MCV 96.4 fL (80.0-100.0) 08/25/21 05:43 MCH 31.8 pg (25.0-35.0) 08/25/21 05:43 MCHC 33.0 g/dL (31.0-37.0) 08/25/21 05:43 RDW 18.1 % (11.5-15.5) H 08/25/21 05:43 Plt Count 69 k/uL (150-450) L D 08/24/21 18:51 MPV 17.3 08/25/21 05:43 Neutrophils % (Manual) 82 % 08/24/21 18:51 Band Neuts % (Manual) 1 % 08/24/21 18:51 Lymphocytes % (Manual) 9 % 08/24/21 18:51 Monocytes % (Manual) 7 % 08/24/21 18:51 Eosinophils % (Manual) 1 % 08/24/21 18:51 Neutrophils # (Manual) 10.00 k/uL (1.3-7.7) H 08/24/21 18:51 Lymphocytes # (Manual) 1.09 k/uL (1.0-4.8) 08/24/21 18:51 Monocytes # (Manual) 0.85 k/uL (0-1.0) 08/24/21 18:51 Eosinophils # (Manual) 0.12 k/uL (0-0.7) 08/24/21 18:51 Nucleated RBCs 1 /100 WBC (0-0) H 08/24/21 18:51 Manual Slide Review Performed 08/24/21 18:51 Large Platelets Present 08/24/21 18:51 Anisocytosis Slight 08/25/21 05:43 Macrocytosis Slight 08/25/21 05:43 PT 10.8 sec (9.0-12.0) 08/24/21 18:51 INR 1.0 (<1.2) 08/24/21 18:51 APTT 25.5 sec (22.0-30.0) 08/24/21 18:51 Sodium 124 mmol/L (137-145) L 08/25/21 05:43 Potassium 3.8 mmol/L (3.5-5.1) 08/25/21 05:43 Chloride 91 mmol/L (98-107) L 08/25/21 05:43 Carbon Dioxide 26 mmol/L (22-30) 08/25/21 05:43 Anion Gap 7 mmol/L 08/25/21 05:43 BUN 40 mg/dL (9-20) H 08/25/21 05:43 Creatinine 1.13 mg/dL (0.66-1.25) 08/25/21 05:43 Est GFR (CKD-EPI)AfAm 88 (>60 ml/min/1.73 sqM) 08/25/21 05:43 Est GFR (CKD-EPI)NonAf 76 (>60 ml/min/1.73 sqM) 08/25/21 05:43 Glucose 98 mg/dL (74-99) 08/25/21 05:43 POC Glucose (mg/dL) 137 mg/dL (70-110) H 08/25/21 00:45 POC Glu Physician Coding Specialist ID Matthew San 08/25/21 00:45 Calcium 7.8 mg/dL (8.4-10.2) L 08/25/21 05:43 Magnesium 2.2 mg/dL (1.6-2.3) 08/24/21 18:51 Total Bilirubin 2.2 mg/dL (0.2-1.3) H 08/25/21 05:43 AST 37 U/L (17-59) 08/25/21 05:43 ALT 35 U/L (4-49) 08/25/21 05:43 Alkaline Phosphatase 142 U/L (38-126) H 08/25/21 05:43 Troponin I 0.696 ng/mL (0.000-0.034) H* 08/25/21 02:27 NT-Pro-B Natriuret Pep 01550 pg/mL 08/24/21 18:49 Total Protein 5.7 g/dL (6.3-8.2) L 08/25/21 05:43 Albumin 3.1 g/dL (3.5-5.0) L 08/25/21 05:43 PT/INR, D-dimer PT 10.8 sec (9.0-12.0) 08/24/21 18:51 INR 1.0 (<1.2) 08/24/21 18:51 Abnormal lab findings: Abnormal Labs 08/24/21 08/24/21 08/24/21 18:51 18:51 18:51 WBC 12.1 H RBC 3.88 L Hgb 12.5 L Hct 36.9 L RDW 18.5 H Plt Count 69 L D Neutrophils # (Manual) 10.00 H Nucleated RBCs 1 H Sodium 121 L Chloride 87 L BUN 44 H POC Glucose (mg/dL) Calcium Total Bilirubin 2.0 H Alkaline Phosphatase 130 H Troponin I 0.825 H* Total Protein 6.1 L Albumin 3.4 L 08/25/21 08/25/21 08/25/21 00:00 00:45 02:27 WBC RBC Hgb Hct RDW Plt Count Neutrophils # (Manual) Nucleated RBCs Sodium Chloride BUN POC Glucose (mg/dL) 137 H Calcium Total Bilirubin Alkaline Phosphatase Troponin I 0.742 H* 0.696 H* Total Protein Albumin 08/25/21 08/25/21 05:43 05:43 WBC 12.1 H RBC 3.83 L Hgb 12.2 L Hct 36.9 L RDW 18.1 H Plt Count Neutrophils # (Manual) Nucleated RBCs Sodium 124 L Chloride 91 L BUN 40 H POC Glucose (mg/dL) Calcium 7.8 L Total Bilirubin 2.2 H Alkaline Phosphatase 142 H Troponin I Total Protein 5.7 L Albumin 3.1 L - Diagnostic Findings Chest x-ray: image reviewed Assessment and Plan Plan: Syncope, likely secondary to hypotension. The patient has been having a fall and the has noted that the patient is running a lower blood pressure. For that reason, the patient was brought into the hospital and the patient was found to be hypotensive and following that he was admitted to the intensive care unit for further monitoring Acute on top of chronic decompensated heart failure with secondary hypotension. The patient also has some cardiomegaly and elevated proBNP level on today's blood work in addition to hyponatremia. This is typical of an acute on top of chronic decompensated heart failure. Rule out underlying development of a pericardial effusion. A limited echocardiogram will be needed to reevaluate LV function and rule out pericardial effusion and assess valvular function. Acute on chronic hypotension, most likely cardiogenic in nature. Doubt underlying hypovolemia or septic shock. In fact the patient has signs of hypervolemia and extensive edema especially in lower extremities bilaterally Chronic systolic and diastolic heart failure with ejection fraction of 3035% Moderate mitral regurgitation and mild tricuspid regurgitation with secondary pulmonary hypertension with a PA pressure 47 Troponin elevation, nonspecific, not related to an acute coronary event, from his cardiac catheterization at shown nonocclusive disease and a troponin peaked at 0.8. History of cardiac amyloidosis History of multiple myeloma Acute on chronic hyponatremia, sodium level was as low as 121 admission, up to 124 today. History of TIA History of chronic constipation/ileus, recovered Thrombocytopenia, acute Generalized debility seconds above-mentioned comorbidities Plan IV to KV0 Comntinue norepinephrine infusion for blood pressure support. Currently the norepinephrine is running at 0.04 mcg/kg per minute. Start the patient on gentle diuresis with Lasix 20 mg IV every 12 hours Repeat echocardiogram to evaluate the patient's LV function, rule out any pericardial effusion and reevaluate valvular functions Monitor sodium level Cardiology consultation Obtain further information from the family regarding ongoing treatment for multiple myeloma and amyloidosis UA Porcalcitonin level Oncology consult cardiology consult
--- NOTE | 2021-08-25 12:49 | CDI ---
Documentation Clarification Form Date: 08/25/2021 12:10:50 PM From: Keren Hernandez RN CCDS Admit Date: 08/24/2021 11:17:00 PM Patient Name: Parker Styles Visit Number: [id number] Discharge Date: ATTENTION: The Clinical Documentation Specialists (CDI) and [facility] Coding Staff appreciate your assistance in clarifying documentation. Please respond to the clarification below the line at the bottom and electronically sign. The CDI & [facility] Coding staff will review the response and follow-up if needed. Please note: Queries are made part of the Legal Health Record. If you have any questions, please contact the author of this message via ITS. Dr. Karel Murry Shock secondary to cardiac amyloidosis documented 08/25, H&P. Additional clarification regarding the type of shock is requested. Patient history/risk factors: 51-year-old male presents to the ED for hypotension and low blood pressure. Medical History: Multiple myeloma, chemotherapy and heart failure. 08/25, H&P. Clinical Indicators: 08/25, VSS: B/P 74/54; HR 92; Temp 98.4 T F; RR 16; SpO2 98% 08/25, LABS: Wbc 12.1; Hgb 12.5; Plt count 69; Neutrophils 10; NA 121; CHL 87; BUN 44; Troponin 0.825; 0.606; BNP 95136. 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 Treatment: 08/24 0.9NS 500cc bolus; 08/25 0.9NS 1L bolus; 08/25 Norepinephrine IV Please clarify the type of shock, if known: [ ] Hypovolemic Shock [ x ] Cardiogenic Shock [ ] Other, please specify [ ] Unable to determine (Template Last Revised: April 2020) MTDD
[2021-08-25 13:12] LABS: Appearance,Urine Clear (Clear); Bilirubin,Urine Negative (Negative); Blood,Urine Negative (Negative); Color,Urine Yellow; Glucose,Urine (UA) Negative (Negative); Ketones,Urine Negative (Negative); Leukocyte Esterase,Urine Negative (Negative); Nitrite,Urine Negative (Negative); PH, Urine 5.5 (5.0-8.0); Protein,Urine Negative (Negative); Specific Gravity,Urine 1.013 (1.001-1.035)
--- NOTE | 2021-08-25 13:25 | CA ---
Transthoracic Echo Report Name: Parker Styles Age: 51 Gender: M : 1970 Exam Date: 08/25/2021 10:03 Exam Location: [facility] Ht (in): 60 Wt (lb): 192 Ordering Physician: Елена Neal Attending/Referring Phys: [id number], Ángel Bondactor Machine Operator Judit Longoria RDCS Procedure CPT: Indications: Hypotension Cardiac Hx: Technical Quality: Good Contrast 1: Total Dose (mL): Contrast 2: Total Dose (mL): MEASUREMENTS (Male / Female) Normal Values 2D ECHO LV Diastolic Diameter PLAX 4.1 cm 4.2 - 5.9 / 3.9 - 5.3 cm LV Systolic Diameter PLAX 3.7 cm IVS Diastolic Thickness 1.4 cm 0.6 - 1.0 / 0.6 - 0.9 cm LVPW Diastolic Thickness 3.4 cm 0.6 - 1.0 / 0.6 - 0.9 cm LV Relative Wall Thickness 1.2 RV Internal Dim ED PLAX 3.4 cm LA Systolic Diameter LX 5.0 cm 3.0 - 4.0 / 2.7 - 3.8 cm M-MODE MV E Point Septal Separation 1.3 cm DOPPLER TR Peak Velocity 254.3 cm/s TR Peak Gradient 25.9 mmHg Right Ventricular Systolic Press 30.9 mmHg FINDINGS Left Ventricle Left ventricular ejection fraction is estimated at 20-25%. Severe increased left ventricular wall thickness. Right Ventricle Normal right ventricular size and function. Right Atrium Normal right atrial size. Left Atrium Moderately increased left atrial diameter. Mitral Valve Structurally normal mitral valve. Mild to Moderate mitral regurgitation. Aortic Valve Trileaflet aortic valve. Tricuspid Valve Structurally normal tricuspid valve. Pulmonic Valve Structurally normal pulmonic valve. Pericardium Small pericardial effusion. Aorta Normal size aortic root and proximal ascending aorta. CONCLUSIONS Severe increased left ventricular wall thickness Left ventricular EF 20-25% with global hypokinesis Mild to moderate mitral regurgitation Small pericardial effusion without Not physiology Previewed by: Dr. Sunny Majano DO (Electronically Signed) Final Date: 25 August 2021 13:24
--- NOTE | 2021-08-25 18:17 | P.CONS ---
History of Present Illness - Reason for Consult Consult date: 08/25/21 Cardiac amyloidosis Requesting physician: Елена Neal - Chief Complaint Anorexia, dizziness, syncope - History of Present Illness Patient is seen in consult in the ICU. We have been consulted due to the patient being on acyclovir prophylaxis, he has not been taking it and Critical Care team is wanting us to evaluate his medications for appropriate continuation. Recommend continuation of acyclovir 400mg PO BID as viral prophylaxis. Patient reports that he is under the care of Dr. Sergio ARMAS for cardiac amyloidosis, most recently on CyBorD. He states he was in his usual state of health until March 2021. That had been doing well on treatment, he was on a 2 drug regimen, more recently a third drug was added. After that he began having difficulty tolerating oral intake, this led to dehydration, dizziness and ultimately syncope and admit. He denies any acute c/o, no prior instances of CHF. Review of Systems Patient is some of his history, he deferred us to his for further information. Past Medical History Past Medical History: Cancer, Heart Failure, GERD/Reflux, Syncope Additional Past Medical History / Comment(s): Cardiac Amylodosis, neck systolic and diastolic heart failure. The patient has a mother to seek improvement of the LV function with an ejection fraction of 30-35% long with global hypokinesis, moderate to severe mitral regurgitation, moderate degree of pulmonary hypertension with a PA pressure of 47, chronic hyponatremia, undergoing workup for cardiac amyloidosis status post biopsy. Multiple myeloma, patient is starting chemotherapy. gastroesophageal reflux disease. TIA History of Any Multi-Drug Resistant Organisms: None Reported Past Surgical History: Cholecystectomy, Heart Catheterization Past Anesthesia/Blood Transfusion Reactions: No Reported Reaction Past Psychological History: No Psychological Hx Reported Smoking Status: Current some day smoker Past Alcohol Use History: None Reported Past Drug Use History: None Reported Additional Drug Use History / Comment(s): reports he is a half a pack per day cigarette smoker, states he has been trying to quit Medications and Allergies Home Medications Medication Instructions Recorded Confirmed Type Acetaminophen Tab [Tylenol] 650 mg PO Q6HR PRN tab 06/24/21 08/24/21 Rx Bumetanide [BUMEX] 2 mg PO DAILY #0 07/13/21 08/24/21 Rx Acyclovir [Zovirax] 400 mg PO BID 08/24/21 08/24/21 History Bumetanide [BUMEX] 2 mg PO HS PRN 08/24/21 08/24/21 History DULoxetine HCL [Cymbalta] 30 mg PO HS 08/24/21 08/24/21 History Docusate [Colace] 200 mg PO DAILY 08/24/21 08/24/21 History Lactulose 10 gm PO DAILY PRN 08/24/21 08/24/21 History Omeprazole 40 mg PO DAILY 08/24/21 08/24/21 History Ondansetron [Zofran] 4 mg PO QID PRN 08/24/21 08/24/21 History Potassium Chloride ER [K-Dur 20] 20 meq PO DAILY 08/24/21 08/24/21 History lisinopriL [Zestril] 2.5 mg PO HS 08/24/21 08/24/21 History Allergies Allergy/AdvReac Type Severity Reaction Status Date / Time strawberry AdvReac Rash/Hives Verified 08/24/21 20:36 Physical Exam Vitals: Vital Signs Temp Pulse Pulse Resp BP Pulse Ox 08/25/21 11:00 85 17 93/65 97 08/25/21 10:30 84 23 95/59 91 L 08/25/21 10:00 80 12 88/61 96 08/25/21 09:30 84 13 89/57 97 08/25/21 09:00 84 18 93/59 08/25/21 08:30 96.2 F L 83 17 95/65 98 08/25/21 08:00 82 14 92/59 98 08/25/21 07:30 81 14 90/60 98 08/25/21 07:00 82 14 89/61 99 08/25/21 06:45 82 15 89/63 08/25/21 06:30 81 21 91/62 98 08/25/21 06:15 89 21 95/66 92 L 08/25/21 06:00 79 16 97/61 97 08/25/21 05:45 81 30 H 96/64 95 08/25/21 05:30 82 25 H 91/65 97 08/25/21 05:15 84 20 75/53 08/25/21 05:00 81 10 L 98 08/25/21 04:45 82 18 77/57 87 L 08/25/21 04:30 81 10 L 72/57 08/25/21 04:20 81 11 L 97 08/25/21 04:10 82 10 L 96 08/25/21 04:00 96.2 F L 83 21 79/55 96 08/25/21 03:50 80 15 97 08/25/21 03:40 82 15 96 08/25/21 03:30 81 13 80/55 97 08/25/21 03:20 82 11 L 96 08/25/21 03:10 80 11 L 79/54 78 L 08/25/21 03:00 82 23 76/53 99 08/25/21 02:50 83 9 L 76/53 08/25/21 02:40 84 12 08/25/21 02:30 85 17 85/55 08/25/21 02:20 85 10 L 85/55 97 08/25/21 02:10 85 12 79/57 99 08/25/21 02:00 85 19 85/59 08/25/21 01:50 87 15 85/59 99 08/25/21 01:40 87 20 83/56 99 08/25/21 01:30 86 13 81/56 99 08/25/21 01:20 87 12 81/56 100 08/25/21 01:10 87 16 85/59 99 08/25/21 01:00 97.5 F L 88 17 84/57 98 08/25/21 00:50 14 81/58 08/25/21 00:47 79 L 08/25/21 00:28 97.8 F 81 20 81/60 96 08/24/21 23:38 97.5 F L 08/24/21 23:36 90 80/58 97 08/24/21 23:00 98.2 F 90 20 78/49 95 08/24/21 22:00 89 18 80/55 95 08/24/21 20:26 86 22 76/55 100 08/24/21 20:11 86 23 71/48 96 08/24/21 20:01 86 20 82/56 97 08/24/21 19:00 86 20 08/24/21 18:15 98.4 F 92 16 74/54 98 Intake and Output 08/24/21 08/25/21 08/25/21 22:59 06:59 14:59 Intake Total 1650 376.238 Output Total 250 Balance 1400 376.238 Intake: IV 1000 Sodium Chloride 0.9% 1, 1000 000 ml @ 999 mls/hr IV . Q1H1M [facility] Rx#:[id number] Intake, IV Titration 650 376.238 Amount Norepinephrine 4 mg In 56.238 Sodium Chloride 0.9% 250 ml @ 0.05 MCG/KG/MIN 16. 65 mls/hr IV .[id number] [facility] Rx#:[id number] Sodium Chloride 0.9% 1, 650 130 000 ml @ 130 mls/hr IV . Q7H42M [facility] Rx#:[id number] Sodium Chloride 0.9% 1, 190 000 ml @ 20 mls/hr IV . Q24H [facility] Rx#:[id number] Output: Urine 250 Other: Voiding Method Urinal # Voids 1 0 Weight 82.554 kg 87.4 kg 87.4 kg - Constitutional General appearance: average body habitus, cooperative, no acute distress - EENT Eyes: anicteric sclerae, EOMI ENT: hearing grossly normal, normal oropharynx - Neck Neck: no lymphadenopathy - Respiratory Respiratory: bilateral: diminished - Cardiovascular Rhythm: regular Heart sounds: normal: S1, S2 Abnormal Heart Sounds: no systolic murmur, no diastolic murmur, no rub, no S3 Gallop, no S4 Gallop, no click, no other leg Peripheral Edema: bilateral: None - Gastrointestinal General gastrointestinal: no absent bowel sounds, no decreased bowel sounds, no distended, no hepatomegaly, no hyperactive bowel sounds, normal bowel sounds, no organomegaly, no rigid, no scaphoid, soft, no splenomegaly, no tenderness, no umbilical hernia, no ventral hernia - Integumentary Integumentary: normal - Neurologic Neurologic: CNII-XII intact - Musculoskeletal Musculoskeletal: strength equal bilaterally - Psychiatric Psychiatric: A&O x's 3, appropriate affect, intact judgment & insight Results CBC & Chem 7: 08/25/21 05:43 08/25/21 05:43 Labs: Abnormal Lab Results - Last 24 Hours (Table) 08/24/21 08/24/21 08/24/21 Range/Units 18:51 18:51 18:51 WBC 12.1 H (3.8-10.6) k/uL RBC 3.88 L (4.30-5.90) m/uL Hgb 12.5 L (13.0-17.5) gm/dL Hct 36.9 L (39.0-53.0) % RDW 18.5 H (11.5-15.5) % Plt Count 69 L D (150-450) k/uL Neutrophils # (1.3-7.7) k/uL Neutrophils # (Manual) 10.00 H (1.3-7.7) k/uL Nucleated RBCs 1 H (0-0) /100 WBC Sodium 121 L (137-145) mmol/L Chloride 87 L (98-107) mmol/L BUN 44 H (9-20) mg/dL POC Glucose (mg/dL) (70-110) mg/dL Calcium (8.4-10.2) mg/dL Total Bilirubin 2.0 H (0.2-1.3) mg/dL Alkaline Phosphatase 130 H (38-126) U/L Troponin I 0.825 H* (0.000-0.034) ng/mL Total Protein 6.1 L (6.3-8.2) g/dL Albumin 3.4 L (3.5-5.0) g/dL 08/25/21 08/25/21 08/25/21 Range/Units 00:00 00:45 02:27 WBC (3.8-10.6) k/uL RBC (4.30-5.90) m/uL Hgb (13.0-17.5) gm/dL Hct (39.0-53.0) % RDW (11.5-15.5) % Plt Count (150-450) k/uL Neutrophils # (1.3-7.7) k/uL Neutrophils # (Manual) (1.3-7.7) k/uL Nucleated RBCs (0-0) /100 WBC Sodium (137-145) mmol/L Chloride (98-107) mmol/L BUN (9-20) mg/dL POC Glucose (mg/dL) 137 H (70-110) mg/dL Calcium (8.4-10.2) mg/dL Total Bilirubin (0.2-1.3) mg/dL Alkaline Phosphatase (38-126) U/L Troponin I 0.742 H* 0.696 H* (0.000-0.034) ng/mL Total Protein (6.3-8.2) g/dL Albumin (3.5-5.0) g/dL 08/25/21 08/25/21 Range/Units 05:43 05:43 WBC 12.1 H (3.8-10.6) k/uL RBC 3.83 L (4.30-5.90) m/uL Hgb 12.2 L (13.0-17.5) gm/dL Hct 36.9 L (39.0-53.0) % RDW 18.1 H (11.5-15.5) % Plt Count 69 L (150-450) k/uL Neutrophils # 10.4 H (1.3-7.7) k/uL Neutrophils # (Manual) (1.3-7.7) k/uL Nucleated RBCs (0-0) /100 WBC Sodium 124 L (137-145) mmol/L Chloride 91 L (98-107) mmol/L BUN 40 H (9-20) mg/dL POC Glucose (mg/dL) (70-110) mg/dL Calcium 7.8 L (8.4-10.2) mg/dL Total Bilirubin 2.2 H (0.2-1.3) mg/dL Alkaline Phosphatase 142 H (38-126) U/L Troponin I (0.000-0.034) ng/mL Total Protein 5.7 L (6.3-8.2) g/dL Albumin 3.1 L (3.5-5.0) g/dL CT Scan - head: report reviewed (CT without contrast, no changes, no fracture of the C-spine) Assessment and Plan (1) Cardiac amyloidosis Current Visit: Yes Status: Acute Priority: High Code(s): E85.4 - ORGAN- LIMITED AMYLOIDOSIS; I43 - CARDIOMYOPATHY IN DISEASES CLASSIFIED ELSEWHERE SNOMED Code(s): 69880650 (2) Dehydration Current Visit: Yes Status: Acute Priority: High Code(s): E86.0 - DEHYDRATION SNOMED Code(s): 01734018 Plan: Agree with Cardiac work up. Pending their findings. Please CC Dr. Hill all work up Cont acyclovir Will follow up. Doctor attests: I performed a history and physical examination of this patient, developed impression and plan of care. Discussed with dictator. I agree with dictators note, documented as a scribe.
[2021-08-25] MEDS: HEPARIN SODIUM,PORCINE/PF 5,000 UNIT/0.5 ML SYRINGE SQ SCH (20:40)
[2021-08-25] MEDS: DULoxetine HCL 30 MG CAPSULE.DR PO SCH (20:40)
[2021-08-26] MEDS: SODIUM CHLORIDE 0.9% 1,000 ML IV SCH ×2 (00:53→08:50)
[2021-08-26] MEDS: HEPARIN SODIUM,PORCINE/PF 5,000 UNIT/0.5 ML SYRINGE SQ SCH ×2 (08:46→20:56)
[2021-08-26] MEDS: ACYCLOVIR 200 MG CAP PO SCH ×2 (08:46→20:56)
[2021-08-26] MEDS: PANTOPRAZOLE 40 MG TABLET PO SCH (08:46)
[2021-08-26] MEDS: DOCUSATE 100 MG CAP PO SCH (08:46)
[2021-08-26] MEDS: POTASSIUM CHLORIDE ER 20 MEQ TAB.ER PO SCH (08:47)
[2021-08-26] MEDS: NOREPINEPHRINE 4 MG in SODIUM CHLORIDE 0.9% 250 ML IV SCH ×2 (08:48→17:11)
[2021-08-26] MEDS: FUROSEMIDE 10 MG/ML 2 ML VIAL IV SCH ×3 (08:49→23:56)
--- NOTE | 2021-08-26 09:14 | P.PN ---
Subjective Progress Note Date: 08/26/21 The patient is a 51-year-old male with multiple comorbid conditions including active multiple myeloma and cardiac sarcoidosis. The patient is currently admitted to the hospital with syncope and dehydration. Over the last 24 hours the patient states he is gradually feeling better, but he remains resting in the ICU bed. No shortness of breath at rest. No chest discomfort. Echocardiogram revealed LV function at 20-25% with global hypokinesis, mild to moderate mitral regurgitation and small pericardial effusion. Previous echocardiogram showed EF at 30-35%. GENERAL: Ill-appearing and in no acute distress. NECK: Supple without JVD or thyromegaly. LUNGS: Breath sounds clear to auscultation bilaterally. Respiration equal and unlabored. No wheezes, rales or rhonchi. HEART: Regular rate and rhythm. Soft systolic murmur. No rubs or gallops. S1 and S2 heard. EXTREMITIES: Normal range of motion, mild edema. No clubbing or cyanosis. Peripheral pulses intact and strong. VITALS: Blood pressure 93/56, respiratory rate 25, pulse 89, temp 98.6F, SpO2 94% on room air TELEMETRY: Sinus rhythm to sinus tachycardia in the low 90s LABS: WBC 12.1, hemoglobin 12.2, hematocrit 36.9, platelet 69, sodium 124, potassium 3.8, BUN 40, creatinine 1.13, AST 37, ALT 35, ALP 142, LDL 76, HDL 44, triglycerides 113 IMPRESSION: Syncope, likely secondary to hypotension Dehydration Elevated troponin, flat, not indicative of ACS Acute systolic heart failure exacerbation Nonischemic cardiomyopathy, EF 20-25% History of cardiac amyloidosis History of multiple myeloma, currently undergoing chemotherapy History of valvular disease PLAN: Continue supportive treatment for hypotension Continue to hold lisinopril Resume diuretics once hemodynamically stable Further recommendations to be based upon clinical course I am dictating on behalf of Dr Vinh Carlson's history/physical and assessment/plan. Objective - Vital Signs Vital signs: Vital Signs Temp 98.6 F 08/26/21 08:30 Pulse 90 08/26/21 09:00 Resp 16 08/26/21 09:00 BP 85/54 08/26/21 09:00 Pulse Ox 94 L 08/26/21 09:00 FiO2 Intake & Output 08/25/21 08/26/21 08/26/21 18:59 06:59 18:59 Intake Total 640.780 363.22 315 Output Total 700 750 Balance -59.220 -386.78 315 Weight 87.4 kg 91.4 kg Intake: IV 240 75 Sodium Chloride 0.9% 1, 240 75 000 ml @ 20 mls/hr IV . Q24H [facility] Rx#:[id number] Intake, IV Titration 640.780 73.22 Amount Norepinephrine 4 mg In 180.780 73.22 Sodium Chloride 0.9% 250 ml @ 0.05 MCG/KG/MIN 16. 65 mls/hr IV .[id number] [facility] Rx#:[id number] Sodium Chloride 0.9% 1, 130 000 ml @ 130 mls/hr IV . Q7H42M [facility] Rx#:[id number] Sodium Chloride 0.9% 1, 330 000 ml @ 20 mls/hr IV . Q24H [facility] Rx#:[id number] Oral 50 240 Output: Urine 700 750 Other: Voiding Method Urinal Urinal # Voids 0 0 # Bowel Movements 1 - Labs CBC & Chem 7: 08/25/21 05:43 08/25/21 05:43 Labs: Abnormal Lab Results - Last 24 Hours (Table) 08/25/21 08/25/21 Range/Units 05:43 05:43 Plt Count 69 L (150-450) k/uL Neutrophils # 10.4 H (1.3-7.7) k/uL Procalcitonin 0.19 H (0.02-0.09) ng/mL
[2021-08-26 09:53] LABS: Anisocytosis Slight; HCT 36.8 % (39.0-53.0); HGB 12.1 gm/dL (13.0-17.5); MCHC 32.9 g/dL (31.0-37.0); MCV 97.2 fL (80.0-100.0); Macrocytosis Slight; Mean Platelet Volume 16.2; RBC 3.78 m/uL (4.30-5.90)
[2021-08-26 10:04] LABS: ALT 29 U/L (4-49); AST 32 U/L (17-59); African American GFR (CKD) >90 (>60 ml/min/1.73 sqM); Albumin 3.1 g/dL (3.5-5.0); Alkaline Phosphatase 139 U/L (38-126); Anion Gap 7 mmol/L; Blood Urea Nitrogen 32 mg/dL (9-20); Calcium 7.9 mg/dL (8.4-10.2); Carbon Dioxide 22 mmol/L (22-30); Chloride 95 mmol/L (98-107); Glucose 155 mg/dL (74-99); Non-African American GFR(CKD) >90 (>60 ml/min/1.73 sqM); Potassium 3.8 mmol/L (3.5-5.1); Sodium 124 mmol/L (137-145); Total Bilirubin 2.2 mg/dL (0.2-1.3); Total Protein 5.6 g/dL (6.3-8.2)
[2021-08-26 10:49] LABS: Platelet Count 82 k/uL (150-450)
[2021-08-26 10:53] LABS: Band Neutrophils % 1 %; Eosinophils # (M) 0.08 k/uL (0-0.7); Monocytes # (M) 0.38 k/uL (0-1.0); Neutrophils % (M) 90 %; Nucleated Red Blood Cells 2 /100 WBC (0-0); Total Cells Counted 200; WBC 7.6 k/uL (3.8-10.6)
[2021-08-26 10:54] LABS: Large Platelets Present; Poikilocytosis (M) Present
[2021-08-26] MEDS: DOBUTamine DRIP 500 MG in DEXTROSE/WATER 1 250ML.BAG IV SCH (11:01)
--- NOTE | 2021-08-26 12:52 | P.PN ---
Subjective Progress Note Date: 08/26/21 51-year-old patient was brought into the hospital because of low blood pressure and hypotension. Initially the patient was noted to run a low blood pressure by the and the patient was brought into the emergency department he was found to be hypotensive in the same time he had overt signs of heart failure including peripheral edema, elevated proBNP level, low sodium level and for that reason he was admitted to the intensive care unit. The patient has history of multiple myeloma and amyloidosis and the patient has cardiac amyloid he does have a component of chronic systolic and diastolic heart failure with impaired LV function and an ejection fraction of around 30-35%. The patient has been treated with chemotherapeutic agents on outpatient basis. Exact regimen is not known to me at this point and the patient is a very poor historian and is unable to recall that she was being offered. He has had previous hospitalizations for the same essentially due to hypotension and hyponatremia weakness. In any rate , the patient is currently in the intensive care unit. Overnight, the patient was gently resuscitated with fluids and I added some norepinephrine infusion for hemodynamic support and norepinephrine is running at a low dose at this point in time. The patient adequate urine output. Chest x-ray shows cardiomegaly with pulmonary vascular congestion and the patient has a proBNP level of 37,800. The patient did have also minor troponin leak with troponins being 0.8 and 0.7-0.6 respectively 3. Renal function is stable with a creatinine of 1.1 with a mean of 40 and admission sodium was 121 came back to 124. Cardiac rhythm is sinus. Normal correlation profile. Denies having any angina or palpitation. Denies having any chest pain. No fever or chills. No nausea vomiting or diarrhea or abdominal pain. No chest pain is reported this point in time. 08/26/2021, the patient on room air oxygen. Patient continues to be borderline hypotensive episode requiring pressors. 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 He has examination systolic and diastolic heart failure. The repeat echocardiac Ángel was done and the patient was found to have significant and further impairment of LV fun ction with an ejection fraction being down to 20-25% along with moderate degree of mitral regurgitation. At the same time, the patient is have significant amount of edema in lower extremity is bilaterally. For now, the patient on low dose norepinephrine infusion for hemodynamic support of blood pressure control. Incentive the patient is being diuresis with IV Lasix 20 mg IV push every 12 hours and the patient is producing adequate amount of urine output. The overall fluid balance over the past 24 hours has been -446 mL. Blood work shows a white cell count of 7.6 with a hemoglobin of 12. Sodium is 124. He has a 32 with a creatinine of 0.9. Electrodes are normal. UA is negative. The blood cultures negative. No other significant events overnight. No altered mentation. He is quite weak and debilitated. Objective - Vital Signs Vital signs: Vital Signs Temp 98.6 F 08/26/21 08:30 Pulse 92 08/26/21 10:30 Resp 25 H 08/26/21 10:30 BP 91/59 08/26/21 10:30 Pulse Ox 93 L 08/26/21 10:30 FiO2 Intake & Output 08/25/21 08/26/21 08/26/21 18:59 06:59 18:59 Intake Total 640.780 363.22 340 Output Total 700 750 Balance -59.220 -386.78 340 Weight 87.4 kg 91.4 kg Intake: IV 240 100 Sodium Chloride 0.9% 1, 240 100 000 ml @ 20 mls/hr IV . Q24H [facility] Rx#:[id number] Intake, IV Titration 640.780 73.22 Amount Norepinephrine 4 mg In 180.780 73.22 Sodium Chloride 0.9% 250 ml @ 0.05 MCG/KG/MIN 16. 65 mls/hr IV .[id number] [facility] Rx#:[id number] Sodium Chloride 0.9% 1, 130 000 ml @ 130 mls/hr IV . Q7H42M [facility] Rx#:[id number] Sodium Chloride 0.9% 1, 330 000 ml @ 20 mls/hr IV . Q24H [facility] Rx#:[id number] Oral 50 240 Output: Urine 700 750 Other: Voiding Method Urinal Urinal Urinal # Voids 0 0 # Bowel Movements 1 - Exam Gen. appearance, the patient is calm and comfortable likely distress and the patient is currently on room air oxygen with a pulse ox of 97%, breathing is nonlabored Head exam was generally normal. There was no scleral icterus or corneal arcus. Mucous membranes were moist. Neck was supple and with jugular venous distension, thyromegaly, or carotid bruits. Carotids were easily palpable bilaterally. There was no adenopathy. Lungs sounds are diminished and the patient has some limited bibasilar crackles. Cardiac exam revealed the PMI to be normally situated and sized. The rhythm was regular and no extrasystoles were noted during several minutes of auscultation. The first and second heart sounds were normal and physiologic splitting of the second heart sound was noted. There were no murmurs, rubs, clicks, or gallops. Abdominal exam revealed normal bowel sounds. The abdomen was soft, non-tender, and without masses, organomegaly, or appreciable enlargement of the abdominal aorta. Extremities revealed +1 pitting edema no cyanosis or clubbing. Neurologically, the patient is awake and alert and the patient does not have any focal neurological deficit. Cranial nerves are essentially intact. Examination of the skin revealed no evidence of significant rashes, suspicious appearing nevi or other concerning lesions. - Labs CBC & Chem 7: 08/26/21 09:30 08/26/21 09:30 Labs: Abnormal Lab Results - Last 24 Hours (Table) 08/25/21 08/26/21 08/26/21 Range/Units 05:43 09:30 09:30 RBC 3.78 L (4.30-5.90) m/uL Hgb 12.1 L (13.0-17.5) gm/dL Hct 36.8 L (39.0-53.0) % RDW 18.0 H (11.5-15.5) % Plt Count 82 L (150-450) k/uL Lymphocytes # (Manual) 0.30 L (1.0-4.8) k/uL Nucleated RBCs 2 H (0-0) /100 WBC Sodium 124 L (137-145) mmol/L Chloride 95 L (98-107) mmol/L BUN 32 H (9-20) mg/dL Glucose 155 H (74-99) mg/dL Calcium 7.9 L (8.4-10.2) mg/dL Total Bilirubin 2.2 H (0.2-1.3) mg/dL Alkaline Phosphatase 139 H (38-126) U/L Total Protein 5.6 L (6.3-8.2) g/dL Albumin 3.1 L (3.5-5.0) g/dL Procalcitonin 0.19 H (0.02-0.09) ng/mL Microbiology - Last 24 Hours (Table) 08/25/21 10:21 Blood Culture - Preliminary Blood No Growth after 24 hours 08/25/21 10:21 Blood Culture - Preliminary Blood No Growth after 24 hours Assessment and Plan Plan: Syncope, likely secondary to hypotension. The patient has been having a fall and the has noted that the patient is running a lower blood pressure. For that reason, the patient was brought into the hospital and the patient was found to be hypotensive and following that he was admitted to the intensive care unit for further monitoring Acute on top of chronic decompensated heart failure with secondary hypotension. The patient also has some cardiomegaly and elevated proBNP level on today's blood work in addition to hyponatremia. This is typical of an acute on top of chronic decompensated heart failure. Echocardiogram was repeated and the patie nt has showed further decompensation in the left ventricular ejection fraction which is down to 225% along with moderate degree of mitral regurgitation Acute on chronic hypotension, most likely cardiogenic in nature. Doubt underlying hypovolemia or septic shock. Chronic systolic and diastolic heart failure with ejection fraction of 3035%, with subsequent further interval decompensation and drop in LV function down to 2025% Moderate mitral regurgitation and mild tricuspid regurgitation with secondary pulmonary hypertension with a PA pressure 47 Troponin elevation, nonspecific, not related to an acute coronary event, from his cardiac catheterization at shown nonocclusive disease and a troponin peaked at 0.8. History of cardiac amyloidosis Acute on chronic hyponatremia, sodium level was as low as 121 admission, up to 124 today. History of TIA History of chronic constipation/ileus, recovered Thrombocytopenia, acute Generalized debility seconds above-mentioned comorbidities Plan IV to KV0 Start the patient on dobutamine 2.5 mcg/kg per minute and gradually increase the dose to 5 Continue IV Lasix 60 Zosyn 20 mg IV push every 8 hours. The patient continues to have significant amount of third spacing and edema Titrate norepinephrine dose to maintain a mean artery pressure above 65 Repeat echo vertigo was noted Monitor sodium level Appreciate cardiology and oncology workup , involvement and advice The pro-calcitonin level is at 0.19 We'll continue to follow.
[2021-08-26] MEDS: DULoxetine HCL 30 MG CAPSULE.DR PO SCH (20:57)
[2021-08-27] MEDS: DOBUTamine DRIP 500 MG in DEXTROSE/WATER 1 250ML.BAG IV SCH (06:22)
[2021-08-27] MEDS: NOREPINEPHRINE 4 MG in SODIUM CHLORIDE 0.9% 250 ML IV SCH ×2 (06:23→18:23)
[2021-08-27 07:16] LABS: African American GFR (CKD) >90 (>60 ml/min/1.73 sqM); Anion Gap 8 mmol/L; Blood Urea Nitrogen 26 mg/dL (9-20); Calcium 7.9 mg/dL (8.4-10.2); Carbon Dioxide 23 mmol/L (22-30); Chloride 92 mmol/L (98-107); Glucose 88 mg/dL (74-99); Non-African American GFR(CKD) >90 (>60 ml/min/1.73 sqM); Potassium 3.9 mmol/L (3.5-5.1); Sodium 123 mmol/L (137-145)
[2021-08-27] MEDS: DOCUSATE 100 MG CAP PO SCH (07:58)
[2021-08-27] MEDS: FUROSEMIDE 10 MG/ML 2 ML VIAL IV SCH (07:58)
[2021-08-27] MEDS: HEPARIN SODIUM,PORCINE/PF 5,000 UNIT/0.5 ML SYRINGE SQ SCH (07:58)
[2021-08-27] MEDS: ACYCLOVIR 200 MG CAP PO SCH ×2 (07:59→20:17)
[2021-08-27] MEDS: POTASSIUM CHLORIDE ER 20 MEQ TAB.ER PO SCH (07:59)
[2021-08-27] MEDS: PANTOPRAZOLE 40 MG TABLET PO SCH (07:59)
--- NOTE | 2021-08-27 09:21 | P.PN ---
Subjective Progress Note Date: 08/27/21 The patient is a 51-year-old male with multiple comorbid conditions including active multiple myeloma and cardiac sarcoidosis. The patient is currently admitted to the hospital with syncope and dehydration. His blood pressures been maintained with low dose levothyroxine started on dobutamine overnight. E chocardiogram revealed LV function at 20-25% with global hypokinesis, mild to moderate mitral regurgitation and small pericardial effusion. Previous echocardiogram showed EF at 30-35%. The patient states he is feeling much better today. He feels muchless fatigued and has shortness of breath. No current chest pain or chest pressure. GENERAL: Well-appearing and in no acute distress. NECK: Supple without JVD or thyromegaly. LUNGS: Breath sounds clear to auscultation bilaterally. Respiration equal and unlabored. No wheezes, rales or rhonchi. HEART: Regular rate and rhythm. Soft systolic murmur. No rubs or gallops. S1 and S2 heard. EXTREMITIES: Normal range of motion, mild edema. No clubbing or cyanosis. Peripheral pulses intact and strong. VITALS: Blood pressure 85/56, pulse 99, respiratory rate 14, SpO2 95% on room air TELEMETRY: Sinus rhythm to sinus tachycardia in the low 90s LABS: Sodium 123, potassium 3. BUN 26, creatinine 0.84 IMPRESSION: Syncope, likely secondary to hypotension Hyponatremia Elevated troponin, flat, not indicative of ACS Acute systolic heart failure exacerbation Nonischemic cardiomyopathy, EF 20-25% History of cardiac amyloidosis History of multiple myeloma, currently undergoing chemotherapy History of valvular disease PLAN: Continue supportive treatment for hypotension Prognosis is guarded and dependent on treatment of multiple myeloma Further recommendations based on clinical course I am dictating on behalf of Dr Vinh Carlson's history/physical and assessment/plan. Objective - Vital Signs Vital signs: Vital Signs Temp 97.6 F 08/27/21 08:00 Pulse 99 08/27/21 09:00 Resp 14 08/27/21 09:00 BP 85/56 08/27/21 09:00 Pulse Ox 95 08/27/21 09:00 FiO2 Intake & Output 08/26/21 08/27/21 08/27/21 18:59 06:59 18:59 Intake Total 9661.922 8223.576 Output Total 500 650 Balance 621.304 702.576 Weight 91.9 kg Intake: IV 300 325 Sodium Chloride 0.9% 1, 300 325 000 ml @ 20 mls/hr IV . Q24H [facility] Rx#:[id number] Intake, IV Titration 101.304 277.576 Amount DOBUTamine DRIP 500 mg In 45.471 174.346 Dextrose/Water 1 250ml. bag @ 2.5 MCG/KG/MIN 6. 855 mls/hr IV .Q24H [facility] Rx#:[id number] Norepinephrine 4 mg In 55.833 103.230 Sodium Chloride 0.9% 250 ml @ 0.05 MCG/KG/MIN 16. 65 mls/hr IV .[id number] [facility] Rx#:[id number] Oral 720 750 Output: Urine 500 650 Other: Voiding Method Urinal Urinal # Voids 1 # Bowel Movements 1 - Labs CBC & Chem 7: 08/26/21 09:30 08/27/21 05:41 Labs: Abnormal Lab Results - Last 24 Hours (Table) 08/26/21 08/26/21 08/27/21 Range/Units 09:30 09:30 05:41 RBC 3.78 L (4.30-5.90) m/uL Hgb 12.1 L (13.0-17.5) gm/dL Hct 36.8 L (39.0-53.0) % RDW 18.0 H (11.5-15.5) % Plt Count 82 L (150-450) k/uL Lymphocytes # (Manual) 0.30 L (1.0-4.8) k/uL Nucleated RBCs 2 H (0-0) /100 WBC Sodium 124 L 123 L (137-145) mmol/L Chloride 95 L 92 L (98-107) mmol/L BUN 32 H 26 H (9-20) mg/dL Glucose 155 H (74-99) mg/dL Calcium 7.9 L 7.9 L (8.4-10.2) mg/dL Total Bilirubin 2.2 H (0.2-1.3) mg/dL Alkaline Phosphatase 139 H (38-126) U/L Total Protein 5.6 L (6.3-8.2) g/dL Albumin 3.1 L (3.5-5.0) g/dL Microbiology - Last 24 Hours (Table) 08/25/21 10:21 Blood Culture - Preliminary Blood No Growth after 24 hours 08/25/21 10:21 Blood Culture - Preliminary Blood No Growth after 24 hours
--- NOTE | 2021-08-27 09:30 | P.PN ---
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 he was to [place] for multiple myeloma and is on treatment for that and patient did have improvement in the light chain levels and patient was brought into ER because of hypotension p atient does have significant peripheral edema elevated BNP found to have a very low blood pressure patient doesn't have any fever chills no evidence of sepsis at this time patient is on acyclovir as an outpatient for prophylaxis secondary to chemotherapy. Patient takes Bumex at home along with lisinopril patient is presently on 2 L of oxygen, patient's creatinine is around 1.1 which is around his baseline. Patient had mild shortness of breath Orthopnea proximal nocturnal dyspnea mildly elevated troponin of 0.6 and 6. Patient has low sodium of 124 08/26/2021 Patient is seen in follow-up continues to be in the ICU with multiple medical consultations including pulmonary, cardiology, oncology following. Patient continues to be on pressor support and remains hypotensive and also volume ov erload. Patient is maintained on IV Lasix along with dobutamine and Levophed and will continue. His most recent echo displaying an EF of 20-25% with global hypokinesis. Patient continues with some shortness of breath with exertion although is maintaining oxygen saturations above 92% on room air. Patient with extreme weakness and will have physical therapy evaluate. Patient is afebrile and denies any nausea or vomiting, oral intake is minimal. Review of systems: Constitutional: reports of fatigue, no reports of fever, or chills Cardiovascular: No reports of chest pain or palpitations Respiratory: reports of exertional shortness of breath GI: No reports of nausea, vomiting, or diarrhea, decreased appetite : No reports of dysuria or retention Neurovascular: reports of weakness or numbness All medications have been reviewed Active Medications Acetaminophen (Acetaminophen Tab 325 Mg Tab) 650 mg PO Q6HR PRN PRN Reason: Fever and/ or Pain Last Admin: 08/25/21 01:39 Dose: 650 mg Acyclovir (Acyclovir 200 Mg Cap) 400 mg PO BID [facility] Last Admin: 08/26/21 08:46 Dose: 400 mg Docusate Sodium (Docusate 100 Mg Cap) 200 mg PO DAILY [facility] Last Admin: 08/26/21 08:46 Dose: 200 mg Duloxetine HCl (Duloxetine Hcl 30 Mg Capsule.Dr) 30 mg PO HS [facility] Last Admin: 08/25/21 20:40 Dose: 30 mg Furosemide (Furosemide 10 Mg/Ml 2 Ml Vial) 20 mg IV Q8HR [facility] Heparin Sodium (Porcine) (Heparin Sodium,Porcine/Pf 5,000 Unit/0.5 Ml Syringe) 5,000 unit SQ Q12HR [facility] Last Admin: 08/26/21 08:46 Dose: 5,000 unit Norepinephrine Bitartrate 4 mg (/ Sodium Chloride) 254 mls @ 16.65 mls/hr IV .[id number] [facility]; Protocol Last Admin: 08/26/21 08:48 Dose: 0.02 mcg/kg/min, 6.66 mls/hr Sodium Chloride (Saline 0.9%) 1,000 mls @ 20 mls/hr IV .Q24H [facility] Last Admin: 08/26/21 08:50 Dose: 20 mls/hr Dobutamine HCl/Dextrose 500 mg (/ IV Solution) 250 mls @ 6.855 mls/hr IV .Q24H [facility] Last Admin: 08/26/21 11:01 Dose: 2.5 mcg/kg/min, 6.855 mls/hr Lactulose (Lactulose 20 Gm/30 Ml Cup) 10 gm PO DAILY PRN PRN Reason: Constipation Nitroglycerin (Nitroglycerin Sl Tabs 0.4 Mg Tab) 0.4 mg SUBLINGUAL Q5M PRN PRN Reason: Chest Pain Ondansetron HCl (Ondansetron 4 Mg Tab) 4 mg PO QID PRN PRN Reason: Nausea Last Admin: 08/25/21 08:23 Dose: 4 mg Pantoprazole Sodium (Pantoprazole 40 Mg Tablet) 40 mg PO DAILY [facility] Last Admin: 08/26/21 08:46 Dose: 40 mg Potassium Chloride (Potassium Chloride Er 20 Meq Tab.Er) 20 meq PO DAILY [facility] Last Admin: 08/26/21 08:47 Dose: 20 meq PHYSICAL EXAMINATION: GENERAL: The patient is alert and oriented x3, not in any acute distress. Well developed, well nourished. HEENT: Pupils are round and equally reacting to light. EOMI. No scleral icterus. No conjunctival pallor. Normocephalic, atraumatic. No pharyngeal erythema. No thyromegaly. CARDIOVASCULAR: S1 and S2 present. No murmurs, rubs, or gallops. PULMONARY: Chest is clear to auscultation, no wheezing or crackles. ABDOMEN: Soft, nontender, nondistended, normoactive bowel sounds. No palpable organomegaly. MUSCULOSKELETAL: No joint swelling or deformity. EXTREMITIES: No cyanosis, clubbing,-bilateral pitting pedal edema 2+ NEUROLOGICAL: Gross neurological examination did not reveal any focal deficits. SKIN: No rashes. 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 Lisinopril will be held, patient is on pressor support. No evidence of infection patient is on prophylactic acyclovir which will be continued -Hypervolemic hyponatremia expected to improve with diuresis -Mildly elevated troponins secondary to heart failure -Congestive heart failure both systolic dysfunction as well as diastolic dysfunction -Multiple myeloma leading to amyloidosis for which patient is undergoing chemotherapy patient had improvement in light chains -Severe mitral valvular disease again secondary to amyloidosis -Depression -Gastroesophageal reflux disease -DVT prophylaxis: Subcutaneous heparin -Full code Plan: Recommend continue monitoring in the ICU with multiple medical consultations following Lasix on hold secondary to hypotension and patient is still on as her support Cardiology following closely along with oncology and pulmonary Encouraged increased activity as tolerated and will have physical therapy eval uate patient Recommend repeat labs in a.m. Due to multiple complex medical issues, overall prognosis is extremely guarded The impression and plan of care has been dictated by Ashley Nielsen, Nurse Practitioner as directed. Dr. Telly MD I have performed a history and examination and MDM of this patient, discussed the same with the dictator, and agree with the dictator's assessment and plan as written ,documented as a scribe. Based on total visit time, I have performed more than 50% of the visit. Objective - Vital Signs Vital signs: Vital Signs Temp 98.6 F 08/26/21 08:30 Pulse 90 08/26/21 09:00 Resp 16 08/26/21 09:00 BP 85/54 08/26/21 09:00 Pulse Ox 94 L 08/26/21 09:00 FiO2 Intake & Output 08/25/21 08/26/21 08/26/21 18:59 06:59 18:59 Intake Total 640.780 363.22 315 Output Total 700 750 Balance -59.220 -386.78 315 Weight 87.4 kg 91.4 kg Intake: IV 240 75 Sodium Chloride 0.9% 1, 240 75 000 ml @ 20 mls/hr IV . Q24H [facility] Rx#:[id number] Intake, IV Titration 640.780 73.22 Amount Norepinephrine 4 mg In 180.780 73.22 Sodium Chloride 0.9% 250 ml @ 0.05 MCG/KG/MIN 16. 65 mls/hr IV .[id number] [facility] Rx#:[id number] Sodium Chloride 0.9% 1, 130 000 ml @ 130 mls/hr IV . [id number] [facility] Rx#:[id number] Sodium Chloride 0.9% 1, 330 000 ml @ 20 mls/hr IV . Q24H [facility] Rx#:[id number] Oral 50 240 Output: Urine 700 750 Other: Voiding Method Urinal Urinal # Voids 0 0 # Bowel Movements 1 - Labs CBC & Chem 7: 08/26/21 09:30 08/27/21 05:41 Labs: Abnormal Lab Results - Last 24 Hours (Table) 08/25/21 08/25/21 Range/Units 05:43 05:43 Plt Count 69 L (150-450) k/uL Neutrophils # 10.4 H (1.3-7.7) k/uL Procalcitonin 0.19 H (0.02-0.09) ng/mL
[2021-08-27] MEDS ORDERED: TOLVAPTAN 15 MG 1/2 TABLET PO ONE ×2 (10:25→22:00)
[2021-08-27] MEDS: ACETAMINOPHEN TAB 325 MG TAB PO PRN (10:59)
[2021-08-27] MEDS: BUMETANIDE 0.25 MG/ML 10 ML VIAL IV SCH ×2 (11:01→15:30)
[2021-08-27] MEDS: metOLazone 5 MG TAB PO SCH (11:02)
--- NOTE | 2021-08-27 12:01 | P.PN ---
Subjective Progress Note Date: 08/27/21 51-year-old patient was brought into the hospital because of low blood pressure and hypotension. Initially the patient was noted to run a low blood pressure by the and the patient was brought into the emergency department he was found to be hypotensive in the same time he had overt signs of heart failure including peripheral edema, elevated proBNP level, low sodium level and for that reason he was admitted to the intensive care unit. The patient has history of multiple myeloma and amyloidosis and the patient has cardiac amyloid he does have a component of chronic systolic and diastolic heart failure with impaired LV function and an ejection fraction of around 30-35%. The patient has been treated with chemotherapeutic agents on outpatient basis. Exact regimen is not known to me at this point and the patient is a very poor historian and is unable to recall that she was being offered. He has had previous hospitalizations for the same essentially due to hypotension and hyponatremia weakness. In any rate , the patient is currently in the intensive care unit. Overnight, the patient was gently resuscitated with fluids and I added some norepinephrine infusion for hemodynamic support and norepinephrine is running at a low dose at this point in time. The patient adequate urine output. Chest x-ray shows cardiomegaly with pulmonary vascular congestion and the patient has a proBNP level of 37,800. The patient did have also minor troponin leak with troponins being 0.8 and 0.7-0.6 respectively 3. Renal function is stable with a creatinine of 1.1 with a mean of 40 and admission sodium was 121 came back to 124. Cardiac rhythm is sinus. Normal correlation profile. Denies having any angina or palpitation. Denies having any chest pain. No fever or chills. No nausea vomiting or diarrhea or abdominal pain. No chest pain is reported this point in time. 08/26/2021, the patient on room air oxygen. Patient continues to be borderline hypotensive episode requiring pressors. 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 He has examination systolic and diastolic heart failure. The repeat echocardiac Ángel was done and the patient was found to have significant and further impairment of LV fun ction with an ejection fraction being down to 20-25% along with moderate degree of mitral regurgitation. At the same time, the patient is have significant amount of edema in lower extremity is bilaterally. For now, the patient on low dose norepinephrine infusion for hemodynamic support of blood pressure control. Incentive the patient is being diuresis with IV Lasix 20 mg IV push every 12 hours and the patient is producing adequate amount of urine output. The overall fluid balance over the past 24 hours has been -446 mL. Blood work shows a white cell count of 7.6 with a hemoglobin of 12. Sodium is 124. He has a 32 with a creatinine of 0.9. Electrodes are normal. UA is negative. The blood cultures negative. No other significant events overnight. No altered mentation. He is quite weak and debilitated. 08/27/2021, the patient's remains in intensive care unit. He has been started myopathy with an ejection fraction of 20-25%. I put the patient on dobutamine and cardiac arrhythmias running at 5 mg/kg/m. He was on IV Lasix and he was not producing much of urine output. Cardiology switched him to Bumex 2 mg IV every 8 hours. Zaroxolyn was also added to facilitate urine output 10 mg by mouth daily For now, the patient is on room air oxygen. Overall fluid balance over t he past 24 hours is negative on 46 mL. The patient remains on low dose norepinephrine infusion at 0.03 mcg/kg per minute. BUN is at 26 with a creatinine of 0.8. Sodium level is down to 123. The white 7.6 hemoglobin 12.1 and a platelet count of 82. Mother the patient was receiving subcu heparin for DVT prophylaxis and the patient developed significant drop in the platelet count during this current admission. IV fluids are currently at KVO. Objective - Vital Signs Vital signs: Vital Signs Temp 97.6 F 08/27/21 08:00 Pulse 97 08/27/21 11:00 Resp 26 H 08/27/21 11:00 BP 87/54 08/27/21 11:00 Pulse Ox 97 08/27/21 11:00 FiO2 Intake & Output 08/26/21 08/27/21 08/27/21 18:59 06:59 18:59 Intake Total 8670.636 6985.576 113.961 Output Total 500 650 Balance 621.304 702.576 113.961 Weight 91.9 kg Intake: IV 300 325 75 Sodium Chloride 0.9% 1, 300 325 75 000 ml @ 20 mls/hr IV . Q24H [facility] Rx#:[id number] Intake, IV Titration 101.304 277.576 38.961 Amount DOBUTamine DRIP 500 mg In 45.471 174.346 Dextrose/Water 1 250ml. bag @ 2.5 MCG/KG/MIN 6. 855 mls/hr IV .Q24H [facility] Rx#:[id number] Norepinephrine 4 mg In 55.833 103.230 38.961 Sodium Chloride 0.9% 250 ml @ 0.05 MCG/KG/MIN 16. 65 mls/hr IV .[id number] [facility] Rx#:[id number] Oral 720 750 Output: Urine 500 650 Other: Voiding Method Urinal Urinal Urinal # Voids 1 1 # Bowel Movements 1 1 - Exam Gen. appearance, the patient is calm and comfortable likely distress and the patient is currently on room air oxygen with a pulse ox of 97%, breathing is nonlabored Head exam was generally normal. There was no scleral icterus or corneal arcus. Mucous membranes were moist. Neck was supple and with jugular venous distension, thyromegaly, or carotid bru its. Carotids were easily palpable bilaterally. There was no adenopathy. Lungs sounds are diminished and the patient has some limited bibasilar crackles. Cardiac exam revealed the PMI to be normally situated and sized. The rhythm was regular and no extrasystoles were noted during several minutes of auscultation. The first and second heart sounds were normal and physiologic splitting of the second heart sound was noted. There were no murmurs, rubs, clicks, or gallops. Abdominal exam revealed normal bowel sounds. The abdomen was soft, non-tender, and without masses, organomegaly, or appreciable enlargement of the abdominal aorta. Extremities revealed +1 pitting edema no cyanosis or clubbing. Neurologically, the patient is awake and alert and the patient does not have any focal neurological deficit. Cranial nerves are essentially intact. Examination of the skin revealed no evidence of significant rashes, suspicious appearing nevi or other concerning lesions. - Labs CBC & Chem 7: 08/26/21 09:30 08/27/21 05:41 Labs: Abnormal Lab Results - Last 24 Hours (Table) 08/27/21 Range/Units 05:41 Sodium 123 L (137-145) mmol/L Chloride 92 L (98-107) mmol/L BUN 26 H (9-20) mg/dL Calcium 7.9 L (8.4-10.2) mg/dL Microbiology - Last 24 Hours (Table) 08/25/21 10:21 Blood Culture - Preliminary Blood No Growth after 24 hours 08/25/21 10:21 Blood Culture - Preliminary Blood No Growth after 24 hours Assessment and Plan Plan: Syncope, likely secondary to hypotension. The patient has been having a fall and the has noted that the patient is running a lower blood pressure. For that reason, the patient was brought into the hospital and the patient was found to be hypotensive and following that he was admitted to the intensive care unit for further monitoring Acute on top of chronic decompensated heart failure with secondary hypotension. The patient also has some cardiomegaly and elevated proBNP level on today's blood work in addition to hyponatremia. This is typical of an acute on top of chronic decompensated heart failure. Echocardiogram was repeated and the patient has showed further decompensation in the left ventricular ejection fraction which is down to 20-25% along with moderate degree of mitral regurgitation. The patient has poor LV function at this point in time. The patient on dobutamine. The patient was also on a combination of Zaroxolyn and metolazone to augment and facilitate urine output. The patient continues to third spacing and the patient continues to have increased edema lower extremities. Positive JVDs. Possible of the pleural effusions. Acute on chronic hypotension, most likely cardiogenic in nature. Doubt underlying hypovolemia or septic shock. Chronic systolic and diastolic heart failure with ejection fraction of 30-35%, with subsequent further interval decompensation and drop in LV function down to 20-25% Moderate mitral regurgitation and mild tricuspid regurgitation with secondary pulmonary hypertension with a PA pressure 47 Troponin elevation, nonspecific, not related to an acute coronary event, from his cardiac catheterization at shown nonocclusive disease and a troponin peaked at 0.8. History of cardiac amyloidosis Acute on chronic hyponatremia, secondary to decompensated CHF History of TIA History of chronic constipation/ileus, recovered Thrombocytopenia, acute Generalized debility seconds above-mentioned comorbidities Plan IV to KV0 Start the patient on dobutamine 5 mcg/kg per minute Continue Bumex 2 mg IV every 8 hours and Zaroxolyn 10 mg by mouth daily Titrate norepinephrine dose to maintain a mean artery pressure above 65 Repeat echo vertigo was noted Monitor sodium level Consult nephrology Stop the subcu heparin and check a baseline HIT antibodies Appreciate cardiology and oncology workup , involvement and advice The pro-calcitonin level is at 0.19 We'll continue to follow. We'll need to discuss this case further with advanced heart failure program at [facility] to see there is any benefit from left ventricular assist device on this patient or any other intervention at can optimize further as CHF. For now, we're going to optimize his condition with a combination of inotropes and diuretics. We'll continue to follow. Start subcu heparin Check HIT abs
--- NOTE | 2021-08-27 12:48 | P.NPCON ---
History of Present Illness - Reason for Consult hyponatremia - History of Present Illness Patient is a 51-year-old male with history of cardiac amyloidosis and CHF with ejection fraction noted at 20% this admission. Patient is admitted to the hospital with hypotension and syncope. Blood pressure according to his is in the 70s. Serum sodium was 121 on initial admission. Patient is currently being diuresed and his serum sodium is at 123. Review of previous labs show serum sodium ranging between 124-127 in July of this year. Patient does evidence of significant volume overload as well and is maintained on dobutamine and low-dose levo fed. He has had fair urine output however it is not accurately measured. Patient states that he is maintained on salt restriction at home. He is maintained on chemotherapy for the amyloidosis. Review of Systems As per HPI Past Medical History Past Medical History: Cancer, Heart Failure, GERD/Reflux, Syncope Additional Past Medical History / Comment(s): Cardiac Amylodosis, neck systolic and diastolic heart failure. The patient has a mother to seek improvement of the LV function with an ejection fraction of 30-35% long with global hypokinesis, moderate to severe mitral regurgitation, moderate degree of pulmonary hypertension with a PA pressure of 47, chronic hyponatremia, undergoing workup for cardiac amyloidosis status post biopsy. Multiple myeloma, patient is starting chemotherapy. gastroesophageal reflux disease. TIA History of Any Multi-Drug Resistant Organisms: None Reported Past Surgical History: Cholecystectomy, Heart Catheterization Past Anesthesia/Blood Transfusion Reactions: No Reported Reaction Past Psychological History: No Psychological Hx Reported Smoking Status: Current some day smoker Past Alcohol Use History: None Reported Past Drug Use History: None Reported Additional Drug Use History / Comment(s): reports he is a half a pack per day cigarette smoker, states he has been trying to quit Medications and Allergies Home Medications Medication Instructions Recorded Confirmed Type Acetaminophen Tab [Tylenol] 650 mg PO Q6HR PRN tab 06/24/21 08/24/21 Rx Bumetanide [BUMEX] 2 mg PO DAILY #0 07/13/21 08/24/21 Rx Acyclovir [Zovirax] 400 mg PO BID 08/24/21 08/24/21 History Bumetanide [BUMEX] 2 mg PO HS PRN 08/24/21 08/24/21 History DULoxetine HCL [Cymbalta] 30 mg PO HS 08/24/21 08/24/21 History Docusate [Colace] 200 mg PO DAILY 08/24/21 08/24/21 History Lactulose 10 gm PO DAILY PRN 08/24/21 08/24/21 History Omeprazole 40 mg PO DAILY 08/24/21 08/24/21 History Ondansetron [Zofran] 4 mg PO QID PRN 08/24/21 08/24/21 History Potassium Chloride ER [K-Dur 20] 20 meq PO DAILY 08/24/21 08/24/21 History lisinopriL [Zestril] 2.5 mg PO HS 08/24/21 08/24/21 History Allergies Allergy/AdvReac Type Severity Reaction Status Date / Time strawberry AdvReac Rash/Hives Verified 08/24/21 20:36 Physical Exam Vitals: Vital Signs Temp Pulse Resp BP Pulse Ox 08/27/21 11:00 97 26 H 87/54 97 08/27/21 10:30 97 27 H 91/58 96 08/27/21 10:00 98 22 90/56 94 L 08/27/21 09:30 98 16 90/57 95 08/27/21 09:00 99 14 85/56 95 08/27/21 08:30 98 12 89/53 94 L 08/27/21 08:00 97.6 F 99 18 87/54 94 L 08/27/21 07:30 101 H 20 86/51 95 08/27/21 07:00 100 12 91/56 93 L 08/27/21 06:30 101 H 14 88/54 95 08/27/21 06:00 98 17 86/59 94 L 08/27/21 05:30 101 H 12 93/57 95 08/27/21 05:00 101 H 16 88/54 93 L 08/27/21 04:30 102 H 16 97/56 94 L 08/27/21 04:00 97.7 F 101 H 19 89/57 93 L 08/27/21 03:30 99 16 92/56 96 08/27/21 03:00 101 H 10 L 89/54 93 L 08/27/21 02:30 101 H 16 90/57 95 08/27/21 02:00 101 H 13 88/55 94 L 08/27/21 01:30 101 H 19 84/56 92 L 08/27/21 01:00 100 12 87/57 93 L 07/21/22 00:30 99 17 89/56 92 L 08/27/21 00:12 98 23 87/56 93 L 08/27/21 00:00 97.6 F 105 H 15 91/56 97 08/26/21 23:30 101 H 18 92/58 93 L 08/26/21 23:00 101 H 11 L 88/59 94 L 08/26/21 22:30 99 13 94/56 93 L 08/26/21 22:00 99 16 95/59 91 L 08/26/21 21:30 101 H 14 91/59 94 L 08/26/21 21:00 101 H 25 H 89/54 97 08/26/21 20:30 98 23 94/59 94 L 08/26/21 20:00 97.7 F 102 H 20 92/62 94 L 08/26/21 19:30 108 H 20 92/61 94 L 08/26/21 19:00 101 H 27 H 93/60 94 L 08/26/21 18:30 105 H 16 96/59 95 08/26/21 18:00 102 H 23 94/61 93 L 08/26/21 17:30 94 24 90/60 95 08/26/21 17:00 102 H 14 88/54 93 L 08/26/21 16:30 103 H 24 86/55 92 L 08/26/21 16:00 98.3 F 102 H 21 87/54 90 L 08/26/21 15:30 96 25 H 84/55 93 L 08/26/21 15:00 93 25 H 92/57 95 08/26/21 14:30 93 20 89/58 95 08/26/21 14:00 97 27 H 90/59 96 08/26/21 13:30 97.9 F 96 37 H 81/57 94 L 08/26/21 13:00 92 27 H 86/56 95 Intake and Output 08/26/2122 08/27/21 22:59 06:59 14:59 Intake Total 229.141 6010.576 163.961 Output Total 300 650 200 Balance 241.304 602.576 -36.039 Intake: IV 200 225 125 Sodium Chloride 0.9% 1, 200 225 125 000 ml @ 20 mls/hr IV . Q24H [facility] Rx#:[id number] Intake, IV Titration 101.304 277.576 38.961 Amount DOBUTamine DRIP 500 mg In 45.471 174.346 Dextrose/Water 1 250ml. bag @ 2.5 MCG/KG/MIN 6. 855 mls/hr IV .Q24H [facility] Rx#:[id number] Norepinephrine 4 mg In 55.833 103.230 38.961 Sodium Chloride 0.9% 250 ml @ 0.05 MCG/KG/MIN 16. 65 mls/hr IV .[id number] [facility] Rx#:[id number] Oral 240 750 Output: Urine 300 650 200 Other: Voiding Method Urinal Urinal Urinal # Voids 1 1 # Bowel Movements 1 Weight 91.9 kg Awake, comfortable, not in any acute distress Examination of the heart S1 and S2 Examination of the lungs shows decreased breath sounds at the bases with basilar crackles Abdomen is soft nontender Examination of the lower extremities shows edema 2+ bilaterally BAND DIRECTOR exam is grossly intact Results - Lab Results Most recent lab results Calcium 7.9 mg/dL (8.4-10.2) L 08/27/21 05:41 Magnesium 2.0 mg/dL (1.6-2.3) 08/26/21 09:30 08/26/21 09:30 08/27/21 05:41 Assessment and Plan Assessment: 1. Hypervolemic hyponatremia currently being diuresed. Will give 1 dose of Samsca. Maintain patient on salt and fluid restriction. Patient is also advised to increase oral protein intake. The dobutamine drip can also worsen the hyponatremia as it is based in D5W. 2. 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 CHF acute on top of chronic, systolic with ejection fraction 20-25% 4. Moderate mitral regurgitation and mild tricuspid regurgitation with seco ndary pulmonary hypertension 5. Volume overload Plan: Samsca 1 Repeat sodium in 4 hours Continue to diurese patient. Monitor sodium with use of Zaroxolyn as it can worsen the hyponatremia. Increase oral protein intake Maintain salt and fluid restriction. Thank you for the consultation. We will continue to follow the patient with you during his hospitalization
[2021-08-27] MEDS ORDERED: FUROSEMIDE 10 MG/ML 4 ML VIAL IV SCH (16:00)
[2021-08-27] MEDS: SODIUM CHLORIDE 0.9% 1,000 ML IV SCH (18:24)
[2021-08-27] MEDS: DULoxetine HCL 30 MG CAPSULE.DR PO SCH (20:18)
[2021-08-28] MEDS: BUMETANIDE 0.25 MG/ML 10 ML VIAL IV SCH ×4 (00:05→23:08)
[2021-08-28 07:22] LABS: ALT 27 U/L (4-49); AST 32 U/L (17-59); African American GFR (CKD) >90 (>60 ml/min/1.73 sqM); Albumin 3.1 g/dL (3.5-5.0); Alkaline Phosphatase 137 U/L (38-126); Anion Gap 6 mmol/L; Anisocytosis Slight; Basophils % (A) 0 %; Blood Urea Nitrogen 23 mg/dL (9-20); Calcium 8.3 mg/dL (8.4-10.2); Carbon Dioxide 29 mmol/L (22-30); Chloride 91 mmol/L (98-107); Eosinophils % (A) 0 %; Glucose 118 mg/dL (74-99); HCT 35.4 % (39.0-53.0); HGB 11.9 gm/dL (13.0-17.5); Lymphocytes # (A) 0.6 k/uL (1.0-4.8); Lymphocytes % (A) 10 %; MCH 32.7 pg (25.0-35.0); MCHC 33.7 g/dL (31.0-37.0); MCV 97.2 fL (80.0-100.0); Macrocytosis Slight; Monocytes # (A) 0.5 k/uL (0-1.0); Monocytes % (A) 7 %; Neutrophils % (A) 81 %; Non-African American GFR(CKD) >90 (>60 ml/min/1.73 sqM); Platelet Count 104 k/uL (150-450); RBC 3.64 m/uL (4.30-5.90); RDW 19.1 % (11.5-15.5); Sodium 126 mmol/L (137-145); Total Protein 5.6 g/dL (6.3-8.2); WBC 6.3 k/uL (3.8-10.6)
[2021-08-28] MEDS: metOLazone 5 MG TAB PO SCH (07:27)
[2021-08-28 07:37] LABS: Potassium 2.7 mmol/L (3.5-5.1)
[2021-08-28] MEDS ORDERED: Potassium Replacement Protocol 1 EACH MISC MISCELLANE PRN ×2 (07:40→15:21)
--- NOTE | 2021-08-28 07:43 | P.PN ---
Subjective Progress Note Date: 08/28/21 PROGRESS NOTE The patient is a 51-year-old male who presented with hypotension. He has a known history of severe cardiomyopathy, cardiac amyloidosis and multiple myeloma. He has been maintained on IV dobutamine and norepinephrine. He's feeling better today with improvement in his peripheral edema and breathing. His urine output has been stable. He continues to be in sinus mechanism. He denies any dizziness or palpitations. He denies any nausea or chest discomfort. He continues to be on IV dobutamine at 5 mcg/kg/m in addition to norepinephrine and IV Bumex. He has received Zaroxolyn as well. Medications: Bumex 2 mg IV every 8 hours, IV dobutamine, Zaroxolyn 10 mg daily, Protonix, norepinephrine. As an outpatient the patient is on low-dose Zestril. He has chronic low blood pressure PHYSICAL EXAMINATION: Blood pressure 90/56 heart rate 90s to low 100 LUNGS: Clear to auscultation HEART: Regular rate and rhythm, S1, S2. Plus S3. systolic ejection murmur at the base ABDOMEN: Soft, nontender, no organomegaly EXTREMETIES: +1 edema more on the left side LAB: Potassium 2.7, BUN 23, creatinine 0.83, sodium 126, hemoglobin 11.9. NT proBNP 26,800 IMPRESSION: 1. Congestive heart failure with severe systolic dysfunction, secondary to cardiac amyloidosis and multiple myeloma 2. Hypotension with syncope 3. History of multiple myeloma 4. Hypokalemia PLAN: 1. Continue IV dobutamine for 24 hours 2. Try to wean IV norepinephrine 3. Continue IV Bumex and if stable decreased Zaroxolyn tomorrow 4. add Aldactone 5. Increase physical activity as tolerated 6. Patient will need to be evaluated down the road for advanced heart failure treatment in view of his status and guarded prognosis Objective - Vital Signs Vital signs: Vital Signs Temp 97.7 F 08/28/21 00:00 Pulse 99 08/28/21 07:00 Resp 16 08/28/21 07:00 BP 90/56 08/28/21 07:00 Pulse Ox 94 L 08/28/21 07:00 FiO2 Intake & Output 08/27/21 08/28/21 08/28/21 18:59 06:59 18:59 Intake Total 917.907 825 25 Output Total 3675 3975 0 Balance -2757.09 -0685 25 Weight 82.2 kg Intake: IV 275 325 25 Sodium Chloride 0.9% 1, 275 325 25 000 ml @ 20 mls/hr IV . Q24H [facility] Rx#:[id number] Intake, IV Titration 92.907 Amount Norepinephrine 4 mg In 92.907 Sodium Chloride 0.9% 250 ml @ 0.05 MCG/KG/MIN 16. 65 mls/hr IV .[id number] [facility] Rx#:[id number] Oral 550 500 Output: Urine 0021 4245 0 Other: Voiding Method Urinal Urinal # Voids 1 # Bowel Movements 1 1 - Labs CBC & Chem 7: 08/26/21 09:30 08/27/21 16:34 Labs: Abnormal Lab Results - Last 24 Hours (Table) 08/27/21 08/27/21 Range/Units 12:35 16:34 Sodium 124 L 123 L (137-145) mmol/L Microbiology - Last 24 Hours (Table) 08/25/21 10:21 Blood Culture - Preliminary Blood No Growth after 48 hours 08/25/21 10:21 Blood Culture - Preliminary Blood No Growth after 48 hours
[2021-08-28] MEDS: PANTOPRAZOLE 40 MG TABLET PO SCH (08:18)
[2021-08-28] MEDS: SPIRONOLACTONE 25 MG TAB PO SCH (08:18)
[2021-08-28] MEDS: ACYCLOVIR 200 MG CAP PO SCH ×2 (08:18→20:03)
[2021-08-28] MEDS: DOCUSATE 100 MG CAP PO SCH (08:19)
[2021-08-28] MEDS: POTASSIUM CHLORIDE ER 20 MEQ TAB.ER PO SCH ×6 (08:19→16:45)
--- NOTE | 2021-08-28 09:03 | P.PN ---
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 he was to [place] for multiple myeloma and is on treatment for that and patient did have improvement in the light chain levels and patient was brought into ER because of hypotension p atient does have significant peripheral edema elevated BNP found to have a very low blood pressure patient doesn't have any fever chills no evidence of sepsis at this time patient is on acyclovir as an outpatient for prophylaxis secondary to chemotherapy. Patient takes Bumex at home along with lisinopril patient is presently on 2 L of oxygen, patient's creatinine is around 1.1 which is around his baseline. Patient had mild shortness of breath Orthopnea proximal nocturnal dyspnea mildly elevated troponin of 0.6 and 6. Patient has low sodium of 124 08/26/2021 Patient is seen in follow-up continues to be in the ICU with multiple medical consultations including pulmonary, cardiology, oncology following. Patient continues to be on pressor support and remains hypotensive and also volume ov erload. Patient is maintained on IV Lasix along with dobutamine and Levophed and will continue. His most recent echo displaying an EF of 20-25% with global hypokinesis. Patient continues with some shortness of breath with exertion although is maintaining oxygen saturations above 92% on room air. Patient with extreme weakness and will have physical therapy evaluate. Patient is afebrile and denies any nausea or vomiting, oral intake is minimal. 08/27/2021 Patient is seen this morning currently sitting up in the chair continues to be in the ICU with multiple medical consultations following. is at the bedside with questions and concerns were answered. Patient continues to report dizziness and lightheadedness and unsteady when attempting to get up and continues to have low blood pressures requiring pressor support. Patient reports he is feeling somewhat better but still feels weakness. Patient is afebrile and denies any chest pain or shortness of breath. Patient currently on room air although does feel dyspnea with exertion. Patient is continued on Aldactone oral and being transitioned to Bumex IV every 8 hours and Lasix has been discontinued. Patient's sodium continues to be low with nephrology following and giving a dose of Samsca. BNP remains relatively high at 26,800. Creatinine function is stable. Review of systems: Constitutional: reports of fatigue, no reports of fever, or chills Cardiovascular: No reports of chest pain or palpitations Respiratory: reports of exertional shortness of breath GI: No reports of nausea, vomiting, or diarrhea, decreased appetite : No reports of dysuria or retention Neurovascular: reports of weakness and some continued dizziness and lightheadedness with standing All medications have been reviewed Active Medications Acetaminophen (Acetaminophen Tab 325 Mg Tab) 650 mg PO Q6HR PRN PRN Reason: Fever and/ or Pain Last Admin: 08/27/21 10:59 Dose: 650 mg Acyclovir (Acyclovir 200 Mg Cap) 400 mg PO BID [facility] Last Admin: 08/28/21 08:18 Dose: 400 mg Bumetanide (Bumetanide 0.25 Mg/Ml 10 Ml Vial) 2 mg IV Q8HR [facility] Last Admin: 08/28/21 08:18 Dose: 2 mg Docusate Sodium (Docusate 100 Mg Cap) 200 mg PO DAILY [facility] Last Admin: 08/28/21 08:19 Dose: 200 mg Duloxetine HCl (Duloxetine Hcl 30 Mg Capsule.Dr) 30 mg PO HS [facility] Last Admin: 08/27/21 20:18 Dose: 30 mg Norepinephrine Bitartrate 4 mg (/ Sodium Chloride) 254 mls @ 16.65 mls/hr IV .[id number] [facility]; Protocol Last Admin: 08/27/21 18:23 Dose: 0.02 mcg/kg/min, 6.66 mls/hr Sodium Chloride (Saline 0.9%) 1,000 mls @ 20 mls/hr IV .Q24H [facility] Last Admin: 08/27/21 18:24 Dose: 20 mls/hr Dobutamine HCl/Dextrose 500 mg (/ IV Solution) 250 mls @ 6.855 mls/hr IV .Q24H [facility] Last Admin: 08/27/21 06:22 Dose: 5 mcg/kg/min, 13.71 mls/hr Lactulose (Lactulose 20 Gm/30 Ml Cup) 10 gm PO DAILY PRN PRN Reason: Constipation Metolazone (Metolazone 5 Mg Tab) 10 mg PO DAILY [facility] Last Admin: 08/28/21 07:27 Dose: Not Given Miscellaneous Information (Potassium Replacement Protocol 1 Each Misc) 1 each MISCELLANE DAILY PRN; Protocol PRN Reason: Per Protocol Nitroglycerin (Nitroglycerin Sl Tabs 0.4 Mg Tab) 0.4 mg SUBLINGUAL Q5M PRN PRN Reason: Chest Pain Ondansetron HCl (Ondansetron 4 Mg Tab) 4 mg PO QID PRN PRN Reason: Nausea Last Admin: 08/25/21 08:23 Dose: 4 mg Pantoprazole Sodium (Pantoprazole 40 Mg Tablet) 40 mg PO DAILY [facility] Last Admin: 08/28/21 08:18 Dose: 40 mg Potassium Chloride (Potassium Chloride Er 20 Meq Tab.Er) 20 meq PO DAILY [facility] Last Admin: 08/28/21 08:19 Dose: 20 meq Potassium Chloride (Potassium Chloride Er 20 Meq Tab.Er) 20 meq PO Q2H [facility] Stop: 08/28/21 12:31 Spironolactone (Spironolactone 25 Mg Tab) 25 mg PO DAILY [facility] Last Admin: 08/28/21 08:18 Dose: 25 mg PHYSICAL EXAMINATION: GENERAL: The patient is alert and oriented x3, not in any acute distress. Well developed, well nourished. HEENT: Pupils are round and equally reacting to light. EOMI. No scleral icterus. No conjunctival pallor. Normocephalic, atraumatic. No pharyngeal erythema. No thyromegaly. CARDIOVASCULAR: S1 and S2 present. No murmurs, rubs, or gallops. PULMONARY: Chest is clear to auscultation, no wheezing or crackles. ABDOMEN: Soft, nontender, nondistended, normoactive bowel sounds. No palpable organomegaly. MUSCULOSKELETAL: No joint swelling or deformity. EXTREMITIES: No cyanosis, clubbing,-bilateral pitting pedal edema 2+ NEUROLOGICAL: Gross neurological examination did not reveal any focal deficits. Diffusely weak SKIN: No rashes. 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 patient is on pressor support. No evidence of infection patient is on prophylactic acyclovir which will be continued -Hypervolemic hyponatremia -Mildly elevated troponins secondary to heart failure -Congestive heart failure both systolic dysfunction as well as diastolic dysfunction -Multiple myeloma leading to amyloidosis for which patient is undergoing chemotherapy patient had improvement in light chains -Severe mitral valvular disease again secondary to amyloidosis -Depression -Gastroesophageal reflux disease -DVT prophylaxis -Full code Plan: Recommend continue monitoring in the ICU with multiple medical consultations following Lasix is being discontinued and patient being transitioned to IV Bumex with nephrology following Cardiology following closely along with oncology and pulmonary Patient remains on pressor support for hypotension Encouraged increased activity as tolerated and will have physical therapy evaluate patient Recommend repeat labs in a.m. Due to multiple complex medical issues, overall prognosis is extremely guarded The impression and plan of care has been dictated by Ashley Nielsen, Nurse Practitioner as directed. Dr. Telly MD I have performed a history and examination and MDM of this patient, discussed the same with the dictator, and agree with the dictator's assessment and plan as written ,documented as a scribe. Based on total visit time, I have performed more than 50% of the visit. Objective - Vital Signs Vital signs: Vital Signs Temp 97.6 F 08/27/21 08:00 Pulse 99 08/27/21 09:00 Resp 14 08/27/21 09:00 BP 85/56 08/27/21 09:00 Pulse Ox 95 08/27/21 09:00 FiO2 Intake & Output 08/26/21 08/27/21 08/27/21 18:59 06:59 18:59 Intake Total 7270.416 8233.576 25 Output Total 500 650 Balance 621.304 702.576 25 Weight 91.9 kg Intake: IV 300 325 25 Sodium Chloride 0.9% 1, 300 325 25 000 ml @ 20 mls/hr IV . Q24H [facility] Rx#:[id number] Intake, IV Titration 101.304 277.576 Amount DOBUTamine DRIP 500 mg In 45.471 174.346 Dextrose/Water 1 250ml. bag @ 2.5 MCG/KG/MIN 6. 855 mls/hr IV .Q24H [facility] Rx#:[id number] Norepinephrine 4 mg In 55.833 103.230 Sodium Chloride 0.9% 250 ml @ 0.05 MCG/KG/MIN 16. 65 mls/hr IV .[id number] [facility] Rx#:[id number] Oral 720 750 Output: Urine 500 650 Other: Voiding Method Urinal Urinal # Voids 1 1 # Bowel Movements 1 1 - Labs CBC & Chem 7: 08/28/21 06:14 08/28/21 06:14 Labs: Abnormal Lab Results - Last 24 Hours (Table) 08/26/21 08/26/21 08/27/21 Range/Units 09:30 09:30 05:41 RBC 3.78 L (4.30-5.90) m/uL Hgb 12.1 L (13.0-17.5) gm/dL Hct 36.8 L (39.0-53.0) % RDW 18.0 H (11.5-15.5) % Plt Count 82 L (150-450) k/uL Lymphocytes # (Manual) 0.30 L (1.0-4.8) k/uL Nucleated RBCs 2 H (0-0) /100 WBC Sodium 124 L 123 L (137-145) mmol/L Chloride 95 L 92 L (98-107) mmol/L BUN 32 H 26 H (9-20) mg/dL Glucose 155 H (74-99) mg/dL Calcium 7.9 L 7.9 L (8.4-10.2) mg/dL Total Bilirubin 2.2 H (0.2-1.3) mg/dL Alkaline Phosphatase 139 H (38-126) U/L Total Protein 5.6 L (6.3-8.2) g/dL Albumin 3.1 L (3.5-5.0) g/dL Microbiology - Last 24 Hours (Table) 08/25/21 10:21 Blood Culture - Preliminary Blood No Growth after 24 hours 08/25/21 10:21 Blood Culture - Preliminary Blood No Growth after 24 hours
[2021-08-28] MEDS ORDERED: TOLVAPTAN 15 MG 1/2 TABLET PO ONE (10:00)
--- NOTE | 2021-08-28 10:00 | P.PN ---
Subjective Patient is seen for follow-up for hyponatremia which is mostly hypervolemic. He did receive 2 doses of Samsca yesterday. Serum sodium is up to 126 today. Patient has had good diuresis. Weight is down significantly Urine output documented at 7.6 L for last 24 hours Potassium was 2.7. Objective - Vital Signs Vital signs: Vital Signs Temp 98.5 F 08/28/21 08:00 Pulse 105 H 08/28/21 09:30 Resp 19 08/28/21 09:30 BP 86/57 08/28/21 09:30 Pulse Ox 92 L 08/28/21 09:30 FiO2 Intake & Output 08/27/21 08/28/21 08/28/21 18:59 06:59 18:59 Intake Total 917.907 825 75 Output Total 3675 3975 1075 Balance -2757.093 -3150 -1000 Weight 82.2 kg Intake: IV 275 325 75 Sodium Chloride 0.9% 1, 275 325 75 000 ml @ 20 mls/hr IV . Q24H [facility] Rx#:[id number] Intake, IV Titration 92.907 Amount Norepinephrine 4 mg In 92.907 Sodium Chloride 0.9% 250 ml @ 0.05 MCG/KG/MIN 16. 65 mls/hr IV .[id number] [facility] Rx#:[id number] Oral 550 500 Output: Urine 3675 3975 1075 Other: Voiding Method Urinal Urinal # Voids 1 # Bowel Movements 1 1 - Exam Patient is awake, comfortable, not in any acute distress Alert oriented 3 Examination of the heart S1 and S2 Examination of the lungs bilateral breath sounds are heard Abdomen is soft nontender Examination of the lower extremities shows 3+ edema bilaterally PHYSICIAN OBSTETRICIAN exam grossly intact - Labs CBC & Chem 7: 08/28/21 06:14 08/28/21 06:14 Labs: Abnormal Lab Results - Last 24 Hours (Table) 08/27/21 08/27/21 08/28/21 Range/Units 12:35 16:34 06:14 RBC (4.30-5.90) m/uL Hgb (13.0-17.5) gm/dL Hct (39.0-53.0) % RDW (11.5-15.5) % Plt Count (150-450) k/uL Sodium 124 L 123 L 126 L (137-145) mmol/L Potassium 2.7 L* (3.5-5.1) mmol/L Chloride 91 L (98-107) mmol/L BUN 23 H (9-20) mg/dL Glucose 118 H (74-99) mg/dL Calcium 8.3 L (8.4-10.2) mg/dL Total Bilirubin 2.0 H (0.2-1.3) mg/dL Alkaline Phosphatase 137 H (38-126) U/L Total Protein 5.6 L (6.3-8.2) g/dL Albumin 3.1 L (3.5-5.0) g/dL 08/28/21 Range/Units 06:14 RBC 3.64 L (4.30-5.90) m/uL Hgb 11.9 L (13.0-17.5) gm/dL Hct 35.4 L (39.0-53.0) % RDW 19.1 H (11.5-15.5) % Plt Count 104 L (150-450) k/uL Sodium (137-145) mmol/L Potassium (3.5-5.1) mmol/L Chloride (98-107) mmol/L BUN (9-20) mg/dL Glucose (74-99) mg/dL Calcium (8.4-10.2) mg/dL Total Bilirubin (0.2-1.3) mg/dL Alkaline Phosphatase (38-126) U/L Total Protein (6.3-8.2) g/dL Albumin (3.5-5.0) g/dL Microbiology - Last 24 Hours (Table) 08/25/21 10:21 Blood Culture - Preliminary Blood No Growth after 48 hours 08/25/21 10:21 Blood Culture - Preliminary Blood No Growth after 48 hours Assessment and Plan Assessment: 1. Hypervolemic hyponatremia currently being diuresed. Improved. Status post [facility] yesterday. We'll repeat again today. Maintain patient on salt and fluid restriction. Patient is also advised to increase oral protein intake. The dobutamine drip can also worsen the hyponatremia as it is based in D5W. Zaroxolyn held as it can also worsen the hyponatremia. 2. 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 CHF acute on top of chronic, systolic with ejection fraction 20-25% 4. Moderate mitral regurgitation and mild tricuspid regurgitation with secondary pulmonary hypertension 5. Volume overload, improving Plan: Repeat Samsca today Replace potassium Maintain salt and fluid restriction Continue to encourage increase protein intake. Continue with Bumex and hold Zaroxolyn. Repeat labs in a.m.
[2021-08-28 10:17] LABS: Large Platelets Present
[2021-08-28 11:48] VITALS: BMI 25.9
--- NOTE | 2021-08-28 13:12 | P.PN ---
Subjective Progress Note Date: 08/28/21 51-year-old patient was brought into the hospital because of low blood pressure and hypotension. Initially the patient was noted to run a low blood pressure by the and the patient was brought into the emergency department he was found to be hypotensive in the same time he had overt signs of heart failure including peripheral edema, elevated proBNP level, low sodium level and for that reason he was admitted to the intensive care unit. The patient has history of multiple myeloma and amyloidosis and the patient has cardiac amyloid he does have a component of chronic systolic and diastolic heart failure with impaired LV function and an ejection fraction of around 30-35%. The patient has been treated with chemotherapeutic agents on outpatient basis. Exact regimen is not known to me at this point and the patient is a very poor historian and is unable to recall that she was being offered. He has had previous hospitalizations for the same essentially due to hypotension and hyponatremia weakness. In any rate , the patient is currently in the intensive care unit. Overnight, the patient was gently resuscitated with fluids and I added some norepinephrine infusion for hemodynamic support and norepinephrine is running at a low dose at this point in time. The patient adequate urine output. Chest x-ray shows cardiomegaly with pulmonary vascular congestion and the patient has a proBNP level of 37,800. The patient did have also minor troponin leak with troponins being 0.8 and 0.7-0.6 respectively 3. Renal function is stable with a creatinine of 1.1 with a mean of 40 and admission sodium was 121 came back to 124. Cardiac rhythm is sinus. Normal correlation profile. Denies having any angina or palpitation. Denies having any chest pain. No fever or chills. No nausea vomiting or diarrhea or abdominal pain. No chest pain is reported this point in time. 08/26/2021, the patient on room air oxygen. Patient continues to be borderline hypotensive episode requiring pressors. 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 He has examination systolic and diastolic heart failure. The repeat echocardiac Ángel was done and the patient was found to have significant and further impairment of LV fun ction with an ejection fraction being down to 20-25% along with moderate degree of mitral regurgitation. At the same time, the patient is have significant amount of edema in lower extremity is bilaterally. For now, the patient on low dose norepinephrine infusion for hemodynamic support of blood pressure control. Incentive the patient is being diuresis with IV Lasix 20 mg IV push every 12 hours and the patient is producing adequate amount of urine output. The overall fluid balance over the past 24 hours has been -446 mL. Blood work shows a white cell count of 7.6 with a hemoglobin of 12. Sodium is 124. He has a 32 with a creatinine of 0.9. Electrodes are normal. UA is negative. The blood cultures negative. No other significant events overnight. No altered mentation. He is quite weak and debilitated. 08/27/2021, the patient's remains in intensive care unit. He has been started myopathy with an ejection fraction of 20-25%. I put the patient on dobutamine and cardiac arrhythmias running at 5 mg/kg/m. He was on IV Lasix and he was not producing much of urine output. Cardiology switched him to Bumex 2 mg IV every 8 hours. Zaroxolyn was also added to facilitate urine output 10 mg by mouth daily For now, the patient is on room air oxygen. Overall fluid balance over t he past 24 hours is negative on 46 mL. The patient remains on low dose norepinephrine infusion at 0.03 mcg/kg per minute. BUN is at 26 with a creatinine of 0.8. Sodium level is down to 123. The white 7.6 hemoglobin 12.1 and a platelet count of 82. Mother the patient was receiving subcu heparin for DVT prophylaxis and the patient developed significant drop in the platelet count during this current admission. IV fluids are currently at KVO. 08/28/2021, the patient is doing better compared to yesterday. Note that the patient has advanced cardiomyopathy patient has impaired left a ejection fraction of around 20-25%. He was started on dobutamine yesterday. Subsequently was also given Bumex 2 mg IV every 8 hours and Zaroxolyn 10 mg by mouth daily. Urine output improved dramatically and the patient has been in negative fluid balance of at least 5 L over the past 24 hours. As such, reports improvement in the abdominal lower extremity swelling. His much more comfortable on today's evaluation. He was also seen by nephrology. He was given 2 doses of some samsca nd the sodium level is up to 126. Potassium level is down to 2.7 due to aggressive diuresis and this needs to be replaced. Otherwise, the patient is tolerating dobutamine well at a dose of 5 mg/kg/m. No cardiac arrhythmias have been noted. Blood work from today shows a BUN of 23 with a creatinine 0.8 and a sodium level of 126. At the same time, the patient is a white cell count 6.3 with a hemoglobin of 11.9. Cardiology is on the case. 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 The patient has no new complaints otherwise. No altered mentation. No chest pain. ProBNP level is also improving and the level is down to 26,800. Objective - Vital Signs Vital signs: Vital Signs Temp 97.9 F 08/28/21 12:00 Pulse 102 H 08/28/21 12:00 Resp 29 H 08/28/21 12:00 BP 84/56 08/28/21 12:00 Pulse Ox 96 08/28/21 12:00 FiO2 Intake & Output 08/27/21 08/28/21 08/28/21 18:59 06:59 18:59 Intake Total 917.907 825 458.277 Output Total 3675 3975 1825 Balance -5037.093 -3150 -1366.723 Weight 82.2 kg 82.2 kg Intake: IV 275 325 125 Sodium Chloride 0.9% 1, 275 325 125 000 ml @ 20 mls/hr IV . Q24H [facility] Rx#:[id number] Intake, IV Titration 92.907 111.277 Amount Norepinephrine 4 mg In 92.907 111.277 Sodium Chloride 0.9% 250 ml @ 0.05 MCG/KG/MIN 16. 65 mls/hr IV .[id number] [facility] Rx#:[id number] Oral 550 500 222 Output: Urine 3675 3975 1825 Other: Voiding Method Urinal Urinal Urinal # Voids 1 # Bowel Movements 1 1 1 - Exam Gen. appearance, the patient is calm and comfortable likely distress and the patient is currently on room air oxygen with a pulse ox of 97%, breathing is nonlabored Head exam was generally normal. There was no scleral icterus or corneal arcus. Mucous membranes were moist. Neck was supple and with jugular venous distension, thyromegaly, or carotid bruits. Carotids were easily palpable bilaterally. There was no adenopathy. Lungs sounds are diminished and the patient has some limited bibasilar crackles. Cardiac exam revealed the PMI to be normally situated and sized. The rhythm was regular and no extrasystoles were noted during several minutes of auscultation. The first and second heart sounds were normal and physiologic splitting of the second heart sound was noted. There were no murmurs, rubs, clicks, or gallops. Abdominal exam revealed normal bowel sounds. The abdomen was soft, non-tender, and without masses, organomegaly, or appreciable enlargement of the abdominal aorta. Extremities revealed +1 pitting edema no cyanosis or clubbing. Neurologically, the patient is awake and alert and the patient does not have any focal neurological deficit. Cranial nerves are essentially intact. Examination of the skin revealed no evidence of significant rashes, suspicious appearing nevi or other concerning lesions. - Labs CBC & Chem 7: 08/28/21 06:14 08/28/21 06:14 Labs: Abnormal Lab Results - Last 24 Hours (Table) 08/27/21 08/28/21 08/28/21 Range/Units 16:34 06:14 06:14 RBC 3.64 L (4.30-5.90) m/uL Hgb 11.9 L (13.0-17.5) gm/dL Hct 35.4 L (39.0-53.0) % RDW 19.1 H (11.5-15.5) % Plt Count 104 L (150-450) k/uL Lymphocytes # 0.6 L (1.0-4.8) k/uL Sodium 123 L 126 L (137-145) mmol/L Potassium 2.7 L* (3.5-5.1) mmol/L Chloride 91 L (98-107) mmol/L BUN 23 H (9-20) mg/dL Glucose 118 H (74-99) mg/dL Calcium 8.3 L (8.4-10.2) mg/dL Total Bilirubin 2.0 H (0.2-1.3) mg/dL Alkaline Phosphatase 137 H (38-126) U/L Total Protein 5.6 L (6.3-8.2) g/dL Albumin 3.1 L (3.5-5.0) g/dL Microbiology - Last 24 Hours (Table) 08/25/21 10:21 Blood Culture - Preliminary Blood No Growth after 72 hours 08/25/21 10:21 Blood Culture - Preliminary Blood No Growth after 72 hours Assessment and Plan Plan: Syncope, likely secondary to hypotension. The patient has been having a fall and the has noted that the patient is running a lower blood pressure. For that reason, the patient was brought into the hospital and the patient was found to be hypotensive and following that he was admitted to the intensive care unit for further monitoring. The patient is still borderline hypotensive, tolerating dobutamine. Currently is off norepinephrine infusion. Is responding to dobutamine and diuretics. Acute on top of chronic decompensated heart failure with secondary hypotension. The patient also has some cardiomegaly and elevated proBNP level on today's blood work in addition to hyponatremia. This is typical of an acute on top of chronic decompensated heart failure. Echocardiogram was repeated and the patient has showed further decompensation in the left ventricular ejection fraction which is down to 20-25% along with moderate degree of mitral regurgitation. The patient has poor LV function at this point in time. The patient on dobutamine. The patient was also on a combination of Zaroxolyn and metolazone to augment and facilitate urine output. She has been considerable response to inotropes and diuretics since yesterday and the patient is a negative fluid balance. Diuresis induced hypokalemia, needs to be replaced Hyponatremia and the sodium level is up to 126, the patient was given samsca Acute on chronic hypotension, most likely cardiogenic in nature. Doubt underlying hypovolemia or septic shock. Chronic systolic and diastolic heart failure with ejection fraction of 30-35%, with subsequent further interval decompensation and drop in LV function down to 20-25% Moderate mitral regurgitation and mild tricuspid regurgitation with secondary pulmonary hypertension with a PA pressure 47 Troponin elevation, nonspecific, not related to an acute coronary event, from his cardiac catheterization at shown nonocclusive disease and a troponin peaked at 0.8. History of cardiac amyloidosis Acute on chronic hyponatremia, secondary to decompensated CHF History of TIA History of chronic constipation/ileus, recovered Thrombocytopenia, acute Generalized debility seconds above-mentioned comorbidities Plan IV to KV0 Continue dobutamine 5 mcg/kg per minute Continue Bumex 2 mg IV every 8 hours and hold on Zaroxolyn for today. Aldactone was added by cardiology Titrate norepinephrine dose to maintain a mean artery pressure above 65 Monitor sodium level Stop the subcu heparin and check a baseline HIT antibodies were checked and the levels were negative Appreciate cardiology and oncology workup , involvement and advice The pro-calcitonin level is at 0.19 We'll continue to follow. eThe patient is not a candidate for a left ventricular assist device With the patient on Lovenox 40 mg subcu daily basis for DVT prophylaxis Keep in ICU and will continue to follow
[2021-08-28] MEDS: SODIUM CHLORIDE 0.9% 1,000 ML IV SCH (16:45)
[2021-08-28] MEDS: NOREPINEPHRINE 4 MG in SODIUM CHLORIDE 0.9% 250 ML IV SCH ×2 (18:17→23:08)
--- NOTE | 2021-08-28 18:29 | P.PN ---
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 he was to [place] for multiple myeloma and is on treatment for that and patient did have improvement in the light chain levels and patient was brought into ER because of hypotension p atient does have significant peripheral edema elevated BNP found to have a very low blood pressure patient doesn't have any fever chills no evidence of sepsis at this time patient is on acyclovir as an outpatient for prophylaxis secondary to chemotherapy. Patient takes Bumex at home along with lisinopril patient is presently on 2 L of oxygen, patient's creatinine is around 1.1 which is around his baseline. Patient had mild shortness of breath Orthopnea proximal nocturnal dyspnea mildly elevated troponin of 0.6 and 6. Patient has low sodium of 124 08/26/2021 Patient is seen in follow-up continues to be in the ICU with multiple medical consultations including pulmonary, cardiology, oncology following. Patient continues to be on pressor support and remains hypotensive and also volume ov erload. Patient is maintained on IV Lasix along with dobutamine and Levophed and will continue. His most recent echo displaying an EF of 20-25% with global hypokinesis. Patient continues with some shortness of breath with exertion although is maintaining oxygen saturations above 92% on room air. Patient with extreme weakness and will have physical therapy evaluate. Patient is afebrile and denies any nausea or vomiting, oral intake is minimal. 08/27/2021 Patient is seen this morning currently sitting up in the chair continues to be in the ICU with multiple medical consultations following. is at the bedside with questions and concerns were answered. Patient continues to report dizziness and lightheadedness and unsteady when attempting to get up and continues to have low blood pressures requiring pressor support. Patient reports he is feeling somewhat better but still feels weakness. Patient is afebrile and denies any chest pain or shortness of breath. Patient currently on room air although does feel dyspnea with exertion. Patient is continued on Aldactone oral and being transitioned to Bumex IV every 8 hours and Lasix has been discontinued. Patient's sodium continues to be low with nephrology following and giving a dose of Samsca. BNP remains relatively high at 26,800. Creatinine function is stable. 08/28/2021 Patient continues in the MICU with multiple medical consultations following. Sodium is slightly improved after receiving doses of samsca. Nephrology following closely. Cardiology following as well and weaning off pressors. Patient reports to feeling much improved from yesterday. Patient is maintained on IV bumex and will continue. Patient sitting up in the chair on room air and denies shortness of breath. Patient reports to feeling somewhat less dizzy and lightheaded with movement. Patient is afebrile. Oncology following and patient follows with [facility] in [place]. Potassium low and being replaced per protocol. Review of systems: Constitutional: reports of fatigue, no reports of fever, or chills Cardiovascular: No reports of chest pain or palpitations Respiratory: no reports of exertional shortness of breath GI: No reports of nausea, vomiting, or diarrhea, decreased appetite : No reports of dysuria or retention Neurovascular: reports of weakness and some improvement in his dizziness and lightheadedness with standing All medications have been reviewed Active Medications Acetaminophen (Acetaminophen Tab 325 Mg Tab) 650 mg PO Q6HR PRN PRN Reason: Fever and/ or Pain Last Admin: 08/27/21 10:59 Dose: 650 mg Acyclovir (Acyclovir 200 Mg Cap) 400 mg PO BID [facility] Last Admin: 08/28/21 08:18 Dose: 400 mg Bumetanide (Bumetanide 0.25 Mg/Ml 10 Ml Vial) 2 mg IV Q8HR [facility] Last Admin: 08/28/21 08:18 Dose: 2 mg Docusate Sodium (Docusate 100 Mg Cap) 200 mg PO DAILY [facility] Last Admin: 08/28/21 08:19 Dose: 200 mg Duloxetine HCl (Duloxetine Hcl 30 Mg Capsule.Dr) 30 mg PO HS [facility] Last Admin: 08/27/21 20:18 Dose: 30 mg Norepinephrine Bitartrate 4 mg (/ Sodium Chloride) 254 mls @ 16.65 mls/hr IV .[id number] [facility]; Protocol Last Admin: 08/27/21 18:23 Dose: 0.02 mcg/kg/min, 6.66 mls/hr Sodium Chloride (Saline 0.9%) 1,000 mls @ 20 mls/hr IV .Q24H [facility] Last Admin: 08/27/21 18:24 Dose: 20 mls/hr Dobutamine HCl/Dextrose 500 mg (/ IV Solution) 250 mls @ 6.855 mls/hr IV .Q24H [facility] Last Admin: 08/27/21 06:22 Dose: 5 mcg/kg/min, 13.71 mls/hr Lactulose (Lactulose 20 Gm/30 Ml Cup) 10 gm PO DAILY PRN PRN Reason: Constipation Metolazone (Metolazone 5 Mg Tab) 10 mg PO DAILY [facility] Last Admin: 08/28/21 07:27 Dose: Not Given Miscellaneous Information (Potassium Replacement Protocol 1 Each Misc) 1 each MISCELLANE DAILY PRN; Protocol PRN Reason: Per Protocol Nitroglycerin (Nitroglycerin Sl Tabs 0.4 Mg Tab) 0.4 mg SUBLINGUAL Q5M PRN PRN Reason: Chest Pain Ondansetron HCl (Ondansetron 4 Mg Tab) 4 mg PO QID PRN PRN Reason: Nausea Last Admin: 08/25/21 08:23 Dose: 4 mg Pantoprazole Sodium (Pantoprazole 40 Mg Tablet) 40 mg PO DAILY [facility] Last Admin: 08/28/21 08:18 Dose: 40 mg Potassium Chloride (Potassium Chloride Er 20 Meq Tab.Er) 20 meq PO DAILY [facility] Last Admin: 08/28/21 08:19 Dose: 20 meq Potassium Chloride (Potassium Chloride Er 20 Meq Tab.Er) 20 meq PO Q2H [facility] Stop: 08/28/21 12:31 Spironolactone (Spironolactone 25 Mg Tab) 25 mg PO DAILY [facility] Last Admin: 08/28/21 08:18 Dose: 25 mg PHYSICAL EXAMINATION: GENERAL: The patient is alert and oriented x3, not in any acute distress. Well developed, well nourished. HEENT: Pupils are round and equally reacting to light. EOMI. No scleral icterus. No conjunctival pallor. Normocephalic, atraumatic. No pharyngeal erythema. No thyromegaly. CARDIOVASCULAR: S1 and S2 present. No murmurs, rubs, or gallops. PULMONARY: Chest is clear to auscultation, no wheezing or crackles. ABDOMEN: Soft, nontender, nondistended, normoactive bowel sounds. No palpable organomegaly. MUSCULOSKELETAL: No joint swelling or deformity. EXTREMITIES: No cyanosis, clubbing,-bilateral pitting pedal edema 2+ NEUROLOGICAL: Gross neurological examination did not reveal any focal deficits. Diffusely weak SKIN: No rashes. 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 patient is currently being weaned off pressor support. -Hypervolemic hyponatremia -hypokalemia -Mildly elevated troponins secondary to heart failure -Congestive heart failure both systolic dysfunction as well as diastolic dysfunction -Multiple myeloma leading to amyloidosis for which patient is undergoing chemotherapy patient had improvement in light chains, follows with [facility] [place] -Severe mitral valvular disease again secondary to amyloidosis -Depression -Gastroesophageal reflux disease -DVT prophylaxis -Full code Plan: Recommend continue monitoring in the ICU with multiple medical consultations following Lasix discontinued and patient maintained on IV Bumex with nephrology following Hyponatremia and is status post 2 doses of samsca. 126 today. Hypokalemia today and being replaced per protocol. Cardiology following closely along with oncology and pulmonary Patient weaning off pressor support, bp maintained in the 80's systolic Encouraged increased activity as tolerated and will have physical therapy evaluate patient Recommend repeat labs in a.m. Due to multiple complex medical issues, overall prognosis is extremely guarded The impression and plan of care has been dictated by Ashley Nielsne, Nurse Practitioner as directed. Dr. Telly MD I have performed a history and examination and MDM of this patient, discussed the same with the dictator, and agree with the dictator's assessment and plan as written ,documented as a scribe. Based on total visit time, I have performed more than 50% of the visit. Objective - Vital Signs Vital signs: Vital Signs Temp 98.5 F 08/28/21 08:00 Pulse 101 H 08/28/21 08:00 Resp 12 08/28/21 08:00 BP 92/57 08/28/21 08:00 Pulse Ox 95 08/28/21 08:05 FiO2 Intake & Output 08/27/21 08/28/21 08/28/21 18:59 06:59 18:59 Intake Total 917.907 825 50 Output Total 3675 3975 725 Balance -2757.093 -3150 -675 Weight 82.2 kg Intake: IV 275 325 50 Sodium Chloride 0.9% 1, 275 325 50 000 ml @ 20 mls/hr IV . Q24H [facility] Rx#:[id number] Intake, IV Titration 92.907 Amount Norepinephrine 4 mg In 92.907 Sodium Chloride 0.9% 250 ml @ 0.05 MCG/KG/MIN 16. 65 mls/hr IV .[id number] [facility] Rx#:[id number] Oral 550 500 Output: Urine 1162 9135 725 Other: Voiding Method Urinal Urinal # Voids 1 # Bowel Movements 1 1 - Labs CBC & Chem 7: 08/28/21 06:14 08/28/21 14:29 Labs: Abnormal Lab Results - Last 24 Hours (Table) 08/27/21 08/27/21 08/28/21 Range/Units 12:35 16:34 06:14 RBC (4.30-5.90) m/uL Hgb (13.0-17.5) gm/dL Hct (39.0-53.0) % RDW (11.5-15.5) % Plt Count (150-450) k/uL Sodium 124 L 123 L 126 L (137-145) mmol/L Potassium 2.7 L* (3.5-5.1) mmol/L Chloride 91 L (98-107) mmol/L BUN 23 H (9-20) mg/dL Glucose 118 H (74-99) mg/dL Calcium 8.3 L (8.4-10.2) mg/dL Total Bilirubin 2.0 H (0.2-1.3) mg/dL Alkaline Phosphatase 137 H (38-126) U/L Total Protein 5.6 L (6.3-8.2) g/dL Albumin 3.1 L (3.5-5.0) g/dL 08/28/21 Range/Units 06:14 RBC 3.64 L (4.30-5.90) m/uL Hgb 11.9 L (13.0-17.5) gm/dL Hct 35.4 L (39.0-53.0) % RDW 19.1 H (11.5-15.5) % Plt Count 104 L (150-450) k/uL Sodium (137-145) mmol/L Potassium (3.5-5.1) mmol/L Chloride (98-107) mmol/L BUN (9-20) mg/dL Glucose (74-99) mg/dL Calcium (8.4-10.2) mg/dL Total Bilirubin (0.2-1.3) mg/dL Alkaline Phosphatase (38-126) U/L Total Protein (6.3-8.2) g/dL Albumin (3.5-5.0) g/dL Microbiology - Last 24 Hours (Table) 08/25/21 10:21 Blood Culture - Preliminary Blood No Growth after 48 hours 08/25/21 10:21 Blood Culture - Preliminary Blood No Growth after 48 hours
[2021-08-28] MEDS: DOBUTamine DRIP 500 MG in DEXTROSE/WATER 1 250ML.BAG IV SCH (18:33)
[2021-08-28] MEDS ORDERED: POTASSIUM BICARBONATE/CIT AC 20 MEQ TABLET.EFF NG-TUBE SCH (19:00)
[2021-08-28] MEDS ORDERED: LORazepam 2 MG/ML INJ IV STA (19:51)
[2021-08-28] MEDS ORDERED: HALOPERIDOL LACTATE 5 MG/ML 1 ML VIAL IVP STA (19:51)
[2021-08-28] MEDS: DULoxetine HCL 30 MG CAPSULE.DR PO SCH (20:03)
[2021-08-28 23:59] LABS: Magnesium 1.8 mg/dL (1.6-2.3); Potassium 3.5 mmol/L (3.5-5.1)
[2021-08-29] MEDS ORDERED: Potassium Replacement Protocol 1 EACH MISC MISCELLANE PRN (00:03)
[2021-08-29] MEDS ORDERED: Magnesium Replacement Protocol 1 EACH MISC MISCELLANE PRN (00:09)
[2021-08-29] MEDS: MAGNESIUM SULFATE-D5W PMX 1 GM in DEXTROSE/WATER 1 100ML.BAG IVPB SCH ×2 (00:24→01:23)
[2021-08-29] MEDS: POTASSIUM BICARBONATE/CIT AC 20 MEQ TABLET.EFF NG-TUBE SCH ×2 (00:24→01:23)
[2021-08-29] MEDS: NOREPINEPHRINE 4 MG in SODIUM CHLORIDE 0.9% 250 ML IV SCH (02:38)
[2021-08-29 06:21] LABS: Anisocytosis Slight; Basophils % (A) 0 %; Eosinophils % (A) 0 %; HCT 34.9 % (39.0-53.0); HGB 11.6 gm/dL (13.0-17.5); Lymphocytes # (A) 0.7 k/uL (1.0-4.8); Lymphocytes % (A) 9 %; MCH 32.7 pg (25.0-35.0); MCHC 33.2 g/dL (31.0-37.0); MCV 98.3 fL (80.0-100.0); Macrocytosis Slight; Mean Platelet Volume 14.1; Monocytes # (A) 0.5 k/uL (0-1.0); Monocytes % (A) 7 %; Neutrophils # (A) 5.8 k/uL (1.3-7.7); Neutrophils % (A) 81 %; Platelet Count 114 k/uL (150-450); RBC 3.55 m/uL (4.30-5.90); RDW 18.9 % (11.5-15.5); WBC 7.3 k/uL (3.8-10.6)
[2021-08-29 06:51] LABS: ALT 27 U/L (4-49); AST 32 U/L (17-59); African American GFR (CKD) >90 (>60 ml/min/1.73 sqM); Albumin 3.3 g/dL (3.5-5.0); Alkaline Phosphatase 134 U/L (38-126); Anion Gap 9 mmol/L; Blood Urea Nitrogen 24 mg/dL (9-20); Calcium 8.5 mg/dL (8.4-10.2); Carbon Dioxide 31 mmol/L (22-30); Chloride 86 mmol/L (98-107); Glucose 146 mg/dL (74-99); Non-African American GFR(CKD) >90 (>60 ml/min/1.73 sqM); Potassium 3.5 mmol/L (3.5-5.1); Sodium 126 mmol/L (137-145); Total Bilirubin 1.8 mg/dL (0.2-1.3); Total Protein 5.8 g/dL (6.3-8.2)
[2021-08-29] MEDS: ACETAMINOPHEN TAB 325 MG TAB PO PRN ×2 (06:52→19:09)
[2021-08-29] MEDS: MIDODRINE 5 MG TAB PO SCH ×3 (06:53→17:34)
[2021-08-29] MEDS: POTASSIUM CHLORIDE ER 20 MEQ TAB.ER PO SCH ×3 (07:55→10:35)
[2021-08-29] MEDS: BUMETANIDE 0.25 MG/ML 10 ML VIAL IV SCH ×3 (07:59→23:21)
[2021-08-29] MEDS: ACYCLOVIR 200 MG CAP PO SCH ×2 (09:01→20:27)
[2021-08-29] MEDS: DOCUSATE 100 MG CAP PO SCH (09:02)
[2021-08-29] MEDS: PANTOPRAZOLE 40 MG TABLET PO SCH (09:02)
[2021-08-29] MEDS: SPIRONOLACTONE 25 MG TAB PO SCH (09:02)
[2021-08-29] MEDS: ENOXAPARIN 40 MG/0.4 ML SYRINGE SQ SCH (09:04)
[2021-08-29] MEDS: metOLazone 5 MG TAB PO SCH ×2 (09:15→21:58)
--- NOTE | 2021-08-29 09:28 | P.PN ---
Subjective Patient is seen for follow-up for hyponatremia which is mostly hypervolemic. Has been receiving Samsca daily. Serum sodium is 126 today. Patient has been diuresing well Weight is down significantly Urine output documented at 4.9 L for last 24 hours Potassium was 3.5 Patient remains on dobutamine and was restarted on low-dose levo fed last night. Objective - Vital Signs Vital signs: Vital Signs Temp 98.3 F 08/29/21 08:00 Pulse 101 H 08/29/21 08:30 Resp 23 08/29/21 08:30 BP 82/54 08/29/21 08:30 Pulse Ox 95 08/29/21 08:30 FiO2 Intake & Output 08/28/21 08/29/21 08/29/21 18:59 06:59 18:59 Intake Total 1105.277 945 81.958 Output Total 3050 1875 225 Balance -1944.723 -930 -143.042 Weight 82.2 kg 80.1 kg Intake: IV 300 445 40 Magnesium Sulfate-D5w Pmx 200 1 gm In Dextrose/Water 1 100ml.bag @ 100 mls/hr IVPB Q1H [facility] Rx#: [id number] Sodium Chloride 0.9% 1, 300 245 40 000 ml @ 20 mls/hr IV . Q24H [facility] Rx#:[id number] Intake, IV Titration 361.277 0 41.958 Amount DOBUTamine DRIP 500 mg In 250 Dextrose/Water 1 250ml. bag @ 2.5 MCG/KG/MIN 6. 855 mls/hr IV .Q24H [facility] Rx#:[id number] Norepinephrine 4 mg In 111.277 0 41.958 Sodium Chloride 0.9% 250 ml @ 0.05 MCG/KG/MIN 16. 65 mls/hr IV .[id number] [facility] Rx#:[id number] Oral 444 500 Output: Urine 3050 1875 225 Other: Voiding Method Urinal Urinal # Voids 0 # Bowel Movements 1 - Exam Patient is awake, comfortable, not in any acute distress Alert oriented 3 Examination of the heart S1 and S2 Examination of the lungs bilateral breath sounds are heard Abdomen is soft nontender Examination of the lower extremities shows 3+ edema bilaterally [employer] exam grossly intact - Labs CBC & Chem 7: 08/29/21 05:47 08/29/21 05:47 Labs: Abnormal Lab Results - Last 24 Hours (Table) 08/28/21 08/29/21 08/29/21 Range/Units 06:14 05:47 05:47 RBC 3.55 L (4.30-5.90) m/uL Hgb 11.6 L (13.0-17.5) gm/dL Hct 34.9 L (39.0-53.0) % RDW 18.9 H (11.5-15.5) % Plt Count 114 L (150-450) k/uL Lymphocytes # 0.6 L 0.7 L (1.0-4.8) k/uL Sodium 126 L (137-145) mmol/L Chloride 86 L (98-107) mmol/L Carbon Dioxide 31 H (22-30) mmol/L BUN 24 H (9-20) mg/dL Glucose 146 H (74-99) mg/dL Total Bilirubin 1.8 H (0.2-1.3) mg/dL Alkaline Phosphatase 134 H (38-126) U/L Total Protein 5.8 L (6.3-8.2) g/dL Albumin 3.3 L (3.5-5.0) g/dL Microbiology - Last 24 Hours (Table) 08/25/21 10:21 Blood Culture - Preliminary Blood No Growth after 72 hours 08/25/21 10:21 Blood Culture - Preliminary Blood No Growth after 72 hours Assessment and Plan Assessment: 1. Hypervolemic hyponatremia currently being diuresed. Improved. Receiving Samsca daily. Maintain patient on salt and fluid restriction. Patient is also advised to increase oral protein intake. The dobutamine drip can also worsen the hyponatremia as it is based in D5W. Zaroxolyn held as it can also worsen the hyponatremia since it is a thiazide diuretic. 2. 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 CHF acute on top of chronic, systolic with ejection fraction 20-25% 4. Moderate mitral regurgitation and mild tricuspid regurgitation with secondary pulmonary hypertension 5. Volume overload, improving Plan: Repeat Samsca Repeat sodium this afternoon Maintain salt and fluid restriction Increase protein intake and post/and showed Continue to hold Zaroxolyn as it is a thiazide diuretic diuretic and can worsen the hyponatremia Replace potassium
[2021-08-29] MEDS ORDERED: TOLVAPTAN 15 MG 1/2 TABLET PO ONE ×2 (09:30→18:30)
--- NOTE | 2021-08-29 10:50 | P.PN ---
Subjective Progress Note Date: 08/29/21 51-year-old patient was brought into the hospital because of low blood pressure and hypotension. Initially the patient was noted to run a low blood pressure by the and the patient was brought into the emergency department he was found to be hypotensive in the same time he had overt signs of heart failure including peripheral edema, elevated proBNP level, low sodium level and for that reason he was admitted to the intensive care unit. The patient has history of multiple myeloma and amyloidosis and the patient has cardiac amyloid he does have a component of chronic systolic and diastolic heart failure with impaired LV function and an ejection fraction of around 30-35%. The patient has been treated with chemotherapeutic agents on outpatient basis. Exact regimen is not known to me at this point and the patient is a very poor historian and is unable to recall that she was being offered. He has had previous hospitalizations for the same essentially due to hypotension and hyponatremia weakness. In any rate , the patient is currently in the intensive care unit. Overnight, the patient was gently resuscitated with fluids and I added some norepinephrine infusion for hemodynamic support and norepinephrine is running at a low dose at this point in time. The patient adequate urine output. Chest x-ray shows cardiomegaly with pulmonary vascular congestion and the patient has a proBNP level of 37,800. The patient did have also minor troponin leak with troponins being 0.8 and 0.7-0.6 respectively 3. Renal function is stable with a creatinine of 1.1 with a mean of 40 and admission sodium was 121 came back to 124. Cardiac rhythm is sinus. Normal correlation profile. Denies having any angina or palpitation. Denies having any chest pain. No fever or chills. No nausea vomiting or diarrhea or abdominal pain. No chest pain is reported this point in time. 08/26/2021, the patient on room air oxygen. Patient continues to be borderline hypotensive episode requiring pressors. 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 He has examination systolic and diastolic heart failure. The repeat echocardiac Ángel was done and the patient was found to have significant and further impairment of LV fun ction with an ejection fraction being down to 20-25% along with moderate degree of mitral regurgitation. At the same time, the patient is have significant amount of edema in lower extremity is bilaterally. For now, the patient on low dose norepinephrine infusion for hemodynamic support of blood pressure control. Incentive the patient is being diuresis with IV Lasix 20 mg IV push every 12 hours and the patient is producing adequate amount of urine output. The overall fluid balance over the past 24 hours has been -446 mL. Blood work shows a white cell count of 7.6 with a hemoglobin of 12. Sodium is 124. He has a 32 with a creatinine of 0.9. Electrodes are normal. UA is negative. The blood cultures negative. No other significant events overnight. No altered mentation. He is quite weak and debilitated. 08/27/2021, the patient's remains in intensive care unit. He has been started myopathy with an ejection fraction of 20-25%. I put the patient on dobutamine and cardiac arrhythmias running at 5 mg/kg/m. He was on IV Lasix and he was not producing much of urine output. Cardiology switched him to Bumex 2 mg IV every 8 hours. Zaroxolyn was also added to facilitate urine output 10 mg by mouth daily For now, the patient is on room air oxygen. Overall fluid balance over t he past 24 hours is negative on 46 mL. The patient remains on low dose norepinephrine infusion at 0.03 mcg/kg per minute. BUN is at 26 with a creatinine of 0.8. Sodium level is down to 123. The white 7.6 hemoglobin 12.1 and a platelet count of 82. Mother the patient was receiving subcu heparin for DVT prophylaxis and the patient developed significant drop in the platelet count during this current admission. IV fluids are currently at KVO. 08/28/2021, the patient is doing better compared to yesterday. Note that the patient has advanced cardiomyopathy patient has impaired left a ejection fraction of around 20-25%. He was started on dobutamine yesterday. Subsequently was also given Bumex 2 mg IV every 8 hours and Zaroxolyn 10 mg by mouth daily. Urine output improved dramatically and the patient has been in negative fluid balance of at least 5 L over the past 24 hours. As such, reports improvement in the abdominal lower extremity swelling. His much more comfortable on today's evaluation. He was also seen by nephrology. He was given 2 doses of some samsca nd the sodium level is up to 126. Potassium level is down to 2.7 due to aggressive diuresis and this needs to be replaced. Otherwise, the patient is tolerating dobutamine well at a dose of 5 mg/kg/m. No cardiac arrhythmias have been noted. Blood work from today shows a BUN of 23 with a creatinine 0.8 and a sodium level of 126. At the same time, the patient is a white cell count 6.3 with a hemoglobin of 11.9. Cardiology is on the case. 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 The patient has no new complaints otherwise. No altered mentation. No chest pain. ProBNP level is also improving and the level is down to 26,800. 08/28/2021, the patient remains in the ICU. No complaints. The patient remains on dobutamine at 5 mcg/kg per minute. The patient is also on examination of Lasix and Aldactone. Doing well. He has been negative fluid balance of another 2.8 L over the past 24 hours. Still has significant amount of edema in lower extremity bilaterally although improved. Potassium is being replaced. Most recent x-rays show a sodium level of 126, potassium level of 3.5 with a BUN of 86 and a creatinine of 0.8 with a BUN of 24. The white cell count is 7.3 with a hemoglobin of 11.6. The patient has no specific complaints. He'll be given midodrine should he have any hypotension. Note that overnight, the patient had to be started on low-dose levothyroid at 0.02 mcg/kg per minute for hemodynamic support. He has no chest pain. No significant shortness of breath. He remains on room air oxygen. Nephrology is on the case. Cardiology is on the case. Objective - Vital Signs Vital signs: Vital Signs Temp 98.3 F 08/29/21 08:00 Pulse 108 H 08/29/21 10:00 Resp 29 H 08/29/21 10:00 BP 86/57 08/29/21 10:00 Pulse Ox 98 08/29/21 10:00 FiO2 Intake & Output 08/28/21 08/29/21 08/29/21 18:59 06:59 18:59 Intake Total 1105.277 945 101.958 Output Total 3050 1875 375 Balance -1944.723 -930 -273.042 Weight 82.2 kg 80.1 kg Intake: IV 300 445 60 Magnesium Sulfate-D5w Pmx 200 1 gm In Dextrose/Water 1 100ml.bag @ 100 mls/hr IVPB Q1H [facility] Rx#: [id number] Sodium Chloride 0.9% 1, 300 245 60 000 ml @ 20 mls/hr IV . Q24H [facility] Rx#:[id number] Intake, IV Titration 361.277 0 41.958 Amount DOBUTamine DRIP 500 mg In 250 Dextrose/Water 1 250ml. bag @ 2.5 MCG/KG/MIN 6. 855 mls/hr IV .Q24H [facility] Rx#:[id number] Norepinephrine 4 mg In 111.277 0 41.958 Sodium Chloride 0.9% 250 ml @ 0.05 MCG/KG/MIN 16. 65 mls/hr IV .[id number] [facility] Rx#:[id number] Oral 444 500 Output: Urine 3050 1875 375 Other: Voiding Method Urinal Urinal Urinal # Voids 0 # Bowel Movements 1 - Exam Gen. appearance, the patient is calm and comfortable likely distress and the patient is currently on room air oxygen with a pulse ox of 97%, breathing is nonlabored Head exam was generally normal. There was no scleral icterus or corneal arcus. Mucous membranes were moist. Neck was supple and with jugular venous distension, thyromegaly, or carotid bruits. Carotids were easily palpable bilaterally. There was no adenopathy. Lungs sounds are diminished and the patient has some limited bibasilar crackles. Cardiac exam revealed the PMI to be normally situated and sized. The rhythm was regular and no extrasystoles were noted during several minutes of auscultation. The first and second heart sounds were normal and physiologic splitting of the second heart sound was noted. There were no murmurs, rubs, clicks, or gallops. Abdominal exam revealed normal bowel sounds. The abdomen was soft, non-tender, and without masses, organomegaly, or appreciable enlargement of the abdominal aorta. Extremities revealed +1 pitting edema no cyanosis or clubbing. Neurologically, the patient is awake and alert and the patient does not have any focal neurological deficit. Cranial nerves are essentially intact. Examination of the skin revealed no evidence of significant rashes, suspicious appearing nevi or other concerning lesions. - Labs CBC & Chem 7: 08/29/21 05:47 08/29/21 05:47 Labs: Abnormal Lab Results - Last 24 Hours (Table) 08/29/21 08/29/21 Range/Units 05:47 05:47 RBC 3.55 L (4.30-5.90) m/uL Hgb 11.6 L (13.0-17.5) gm/dL Hct 34.9 L (39.0-53.0) % RDW 18.9 H (11.5-15.5) % Plt Count 114 L (150-450) k/uL Lymphocytes # 0.7 L (1.0-4.8) k/uL Sodium 126 L (137-145) mmol/L Chloride 86 L (98-107) mmol/L Carbon Dioxide 31 H (22-30) mmol/L BUN 24 H (9-20) mg/dL Glucose 146 H (74-99) mg/dL Total Bilirubin 1.8 H (0.2-1.3) mg/dL Alkaline Phosphatase 134 H (38-126) U/L Total Protein 5.8 L (6.3-8.2) g/dL Albumin 3.3 L (3.5-5.0) g/dL Microbiology - Last 24 Hours (Table) 08/25/21 10:21 Blood Culture - Preliminary Blood No Growth after 72 hours 08/25/21 10:21 Blood Culture - Preliminary Blood No Growth after 72 hours Assessment and Plan Plan: Syncope, likely secondary to hypotension. Acute on top of chronic decompensated heart failure with secondary hypotension. The patient also has some cardiomegaly and elevated proBNP level on today's blood work in addition to hyponatremia. This is typical of an acute on top of chronic decompensated heart failure. Echocardiogram was repeated and the patient has showed further decompensation in the left ventricular ejection fraction which is down to 20-25% along with moderate degree of mitral regurgitation. The patient has poor LV function at this point in time. The patient on dobutamine. The patient was also on a combination of Zaroxolyn and metolazone to augment and facilitate urine output. She has been considerable r esponse to inotropes and diuretics since yesterday and the patient is a negative fluid balance. The patient continues to be on a negative fluid balance over the past 48 hours. He has responded nicely to the combination of dobutamine and diuretics. He continues to have edema lower extremity is bilaterally although his clinical status is improving. Diuresis induced hypokalemia, needs to be replaced Hyponatremia and the sodium level is up to 126, the patient was given samsca and the sodium level remains at 126. Acute on chronic hypotension, most likely cardiogenic in nature. Doubt underlyi ng hypovolemia or septic shock. Chronic systolic and diastolic heart failure with ejection fraction of 30-35%, with subsequent further interval decompensation and drop in LV function down to 20-25% Moderate mitral regurgitation and mild tricuspid regurgitation with secondary pulmonary hypertension with a PA pressure 47 Troponin elevation, nonspecific, not related to an acute coronary event, from his cardiac catheterization at shown nonocclusive disease and a troponin peaked at 0.8. History of cardiac amyloidosis Acute on chronic hyponatremia, secondary to decompensated CHF History of TIA History of chronic constipation/ileus, recovered Thrombocytopenia, acute Generalized debility seconds above-mentioned comorbidities Plan IV to KV0 Continue dobutamine 5 mcg/kg per minute , suggest continuing this for another 24 hours Continue Bumex 2 mg IV every 8 hours and hold on Zaroxolyn for today, suggest continuing this for another 24 hours Aldactone was added by cardiology Titrate norepinephrine dose to maintain a mean artery pressure above 65, midodrine was added and the patient will be gradually weaned off the norepinephrine Monitor sodium level Stop the subcu heparin and check a baseline HIT antibodies were checked and the levels were negative Appreciate cardiology and oncology workup , involvement and advice The pro-calcitonin level is at 0.19 We'll continue to follow. The patient is not a candidate for a left ventricular assist device With the patient on Lovenox 40 mg subcu daily basis for DVT prophylaxis Keep in ICU and will continue to follow
[2021-08-29] MEDS ORDERED: POTASSIUM BICARBONATE/CIT AC 20 MEQ TABLET.EFF PO ONE (11:00)
[2021-08-29] MEDS ORDERED: DOBUTamine DRIP 500 MG in DEXTROSE/WATER 1 250ML.BAG IV SCH (13:00)
[2021-08-29] MEDS: DOBUTamine DRIP 500 MG in DEXTROSE/WATER 1 250ML.BAG IV SCH (13:51)
--- NOTE | 2021-08-29 18:59 | PN ---
PROGRESS NOTE FOLLOW-UP NOTE: This is a 51-year-old gentleman with history of amyloidosis, cardiomyopathy and congestive heart failure who is admitted to hospital with heart failure exacerbation and has had hypotension. Patient has been on dobutamine for almost 3 days now and is also on Bumex and Zaroxolyn. At the time of my evaluation he appears comfortable at rest and free of significant symptoms. I will try to cut back on the dobutamine and see how he responds. Patient has history of multiple myeloma. On exam, he is comfortable at rest. Heart rate is 100 beats per minute. Blood pressure is 80/50. Respiratory rate is 18. Chest exam reveals good air entry bilaterally. Heart exam reveals first and second heart sounds. No gallop. Examination of extremities did not reveal any edema. Peripheral pulses are felt. Labs show a hemoglobin of 11.6, potassium of 3.5, creatinine of 0.81. ASSESSMENT: Acute exacerbation of chronic systolic heart failure in a patient with amyloidosis and multiple myeloma. PLAN: Continue current medications. Decrease the dose of dobutamine and stop it. Continue Bumex and Zaroxolyn. Unfortunately we could not stop the Levophed and he had to be started back on it. MMODL / IJN: [id number] /
[2021-08-29] MEDS: DULoxetine HCL 30 MG CAPSULE.DR PO SCH (20:27)
[2021-08-29] MEDS: SODIUM CHLORIDE 0.9% 1,000 ML IV SCH (21:43)
--- NOTE | 2021-08-29 23:45 | P.PN ---
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 he was to [place] for multiple myeloma and is on treatment for that and patient did have improvement in the light chain levels and patient was brought into ER because of hypotension pat ient does have significant peripheral edema elevated BNP found to have a very low blood pressure patient doesn't have any fever chills no evidence of sepsis at this time patient is on acyclovir as an outpatient for prophylaxis secondary to chemotherapy. Patient takes Bumex at home along with lisinopril patient is presently on 2 L of oxygen, patient's creatinine is around 1.1 which is around his baseline. Patient had mild shortness of breath Orthopnea proximal nocturnal dyspnea mildly elevated troponin of 0.6 and 6. Patient has low sodium of 124 08/26/2021 Patient is seen in follow-up continues to be in the ICU with multiple medical consultations including pulmonary, cardiology, oncology following. Patient continues to be on pressor support and remains hypotensive and also volume over load. Patient is maintained on IV Lasix along with dobutamine and Levophed and will continue. His most recent echo displaying an EF of 20-25% with global hypokinesis. Patient continues with some shortness of breath with exertion although is maintaining oxygen saturations above 92% on room air. Patient with extreme weakness and will have physical therapy evaluate. Patient is afebrile and denies any nausea or vomiting, oral intake is minimal. 08/27/2021 Patient is seen this morning currently sitting up in the chair continues to be in the ICU with multiple medical consultations following. is at the bedside with questions and concerns were answered. Patient continues to report dizziness and lightheadedness and unsteady when attempting to get up and continues to have low blood pressures requiring pressor support. Patient reports he is feeling somewhat better but still feels weakness. Patient is afebrile and denies any chest pain or shortness of breath. Patient currently on room air although does feel dyspnea with exertion. Patient is continued on Aldactone oral and being transitioned to Bumex IV every 8 hours and Lasix has been discontinued. Patient's sodium continues to be low with nephrology following and giving a dose of Samsca. BNP remains relatively high at 26,800. Creatinine function is stable. 08/28/2021 Patient continues in the MICU with multiple medical consultations following. Sodium is slightly improved after receiving doses of samsca. Nephrology following closely. Cardiology following as well and weaning off pressors. Patient reports to feeling much improved from yesterday. Patient is maintained on IV bumex and will continue. Patient sitting up in the chair on room air and denies shortness of breath. Patient reports to feeling somewhat less dizzy and lightheaded with movement. Patient is afebrile. Oncology following and patient follows with [facility] in [place]. Potassium low and being replaced per protocol. 08/29/2021 Patient is in the MICU. Awake alert and oriented x3. Lying in the bed. Hypotension currently on pressor support and also on dobutamine drip. Still having bilateral significant lower extremity edema. No complaints of chest pain or shortness of breath. Saturating at 92% on room air. Patient is being continued on Bumex IV, metolazone, Aldactone and also on midodrine 5 mg 3 times daily. Cardiology and pulmonary is on board. Laboratory test showed WBC 7.3 hemoglobin 11.6 and platelets 114 Sodium 126 potassium 3.5 chloride 86 bicarb is 31 BUN 24 and creatinine 0.81 and bilirubin level 1.8 and albumin 3.3 Review of systems: Constitutional: reports of fatigue, no reports of fever, or chills Cardiovascular: No reports of chest pain or palpitations Respiratory: no reports of exertional shortness of breath GI: No reports of nausea, vomiting, or diarrhea, decreased appetite : No reports of dysuria or retention Neurovascular: reports of weakness and some improvement in his dizziness and lightheadedness with standing All medications have been reviewed Objective - Vital Signs Vital signs: Vital Signs Temp 97.9 F 08/29/21 20:00 Pulse 98 08/29/21 21:00 Resp 28 H 08/29/21 21:00 BP 83/58 08/29/21 21:00 Pulse Ox 94 L 08/29/21 21:00 FiO2 Intake & Output 08/29/21 08/29/21 08/30/21 06:59 18:59 06:59 Intake Total 945 581.992 310 Output Total 1875 1175 225 Balance -690 -763.008 85 Weight 80.1 kg Intake: IV 445 240 60 Magnesium Sulfate-D5w Pmx 200 1 gm In Dextrose/Water 1 100ml.bag @ 100 mls/hr IVPB Q1H [facility] Rx#: [id number] Sodium Chloride 0.9% 1, 245 240 60 000 ml @ 20 mls/hr IV . Q24H [facility] Rx#:[id number] Intake, IV Titration 0 91.992 Amount Norepinephrine 4 mg In 0 91.992 Sodium Chloride 0.9% 250 ml @ 0.05 MCG/KG/MIN 16. 65 mls/hr IV .[id number] [facility] Rx#:[id number] Oral 500 250 250 Output: Urine 1875 1175 225 Other: Voiding Method Urinal Urinal Urinal # Voids 0 - Exam PHYSICAL EXAMINATION: GENERAL: The patient is alert and oriented x3, not in any acute distress. Well developed, well nourished. HEENT: Pupils are round and equally reacting to light. EOMI. No scleral icterus. No conjunctival pallor. Normocephalic, atraumatic. No pharyngeal erythema. No thyromegaly. CARDIOVASCULAR: S1 and S2 present. No murmurs, rubs, or gallops. PULMONARY: Chest is clear to auscultation, no wheezing or crackles. ABDOMEN: Soft, nontender, nondistended, normoactive bowel sounds. No palpable organomegaly. MUSCULOSKELETAL: No joint swelling or deformity. EXTREMITIES: No cyanosis, clubbing,-bilateral pitting pedal edema 2+ NEUROLOGICAL: Gross neurological examination did not reveal any focal deficits. Diffusely weak SKIN: No rashes. - Labs CBC & Chem 7: 08/29/21 05:47 08/29/21 16:38 Labs: Abnormal Lab Results - Last 24 Hours (Table) 08/29/21 08/29/21 08/29/21 Range/Units 05:47 05:47 15:32 RBC 3.55 L (4.30-5.90) m/uL Hgb 11.6 L (13.0-17.5) gm/dL Hct 34.9 L (39.0-53.0) % RDW 18.9 H (11.5-15.5) % Plt Count 114 L (150-450) k/uL Lymphocytes # 0.7 L (1.0-4.8) k/uL Sodium 126 L 126 L (137-145) mmol/L Chloride 86 L (98-107) mmol/L Carbon Dioxide 31 H (22-30) mmol/L BUN 24 H (9-20) mg/dL Glucose 146 H (74-99) mg/dL Total Bilirubin 1.8 H (0.2-1.3) mg/dL Alkaline Phosphatase 134 H (38-126) U/L Total Protein 5.8 L (6.3-8.2) g/dL Albumin 3.3 L (3.5-5.0) g/dL Microbiology - Last 24 Hours (Table) 08/25/21 10:21 Blood Culture - Preliminary Blood No Growth after 96 hours 08/25/21 10:21 Blood Culture - Preliminary Blood No Growth after 96 hours Assessment and Plan Assessment: Assessment: -Hypotension, dizziness and 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, patient had ejection fraction of 30% patient also has 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 patient is currently being weaned off pressor support. -Hypervolemic hyponatremia -hypokalemia -Mildly elevated troponins secondary to heart failure -Congestive heart failure both systolic dysfunction as well as diastolic dysfunction -Multiple myeloma leading to amyloidosis for which patient is undergoing chemotherapy patient had improvement in light chains, follows with [place] [facility] -Severe mitral valvular disease again secondary to amyloidosis -Depression -Gastroesophageal reflux disease -DVT prophylaxis -Full code Plan: Recommend continue monitoring in the ICU with multiple medical consultations following Lasix discontinued and patient maintained on IV Bumex with nephrology following Hyponatremia and is status post 2 doses of samsca. 126 today. Hypokalemia today and being replaced per protocol. Cardiology following closely along with oncology and pulmonary Patient weaning off pressor support, bp maintained in the 80's systolic Encouraged increased activity as tolerated and will have physical therapy evaluate patient Recommend repeat labs in a.m. Due to multiple complex medical issues, overall prognosis is extremely guarded Time with Patient: Greater than 30
[2021-08-30 06:27] LABS: ALT 27 U/L (4-49); AST 33 U/L (17-59); African American GFR (CKD) >90 (>60 ml/min/1.73 sqM); Albumin 3.4 g/dL (3.5-5.0); Alkaline Phosphatase 132 U/L (38-126); Anion Gap 7 mmol/L; Blood Urea Nitrogen 31 mg/dL (9-20); Calcium 8.5 mg/dL (8.4-10.2); Carbon Dioxide 34 mmol/L (22-30); Chloride 87 mmol/L (98-107); Glucose 96 mg/dL (74-99); Non-African American GFR(CKD) >90 (>60 ml/min/1.73 sqM); Potassium 3.4 mmol/L (3.5-5.1); Sodium 128 mmol/L (137-145); Total Bilirubin 1.9 mg/dL (0.2-1.3)
[2021-08-30 06:43] LABS: Anisocytosis Slight; Basophils % (A) 1 %; Eosinophils % (A) 0 %; HCT 36.1 % (39.0-53.0); HGB 12.1 gm/dL (13.0-17.5); Lymphocytes # (A) 0.9 k/uL (1.0-4.8); Lymphocytes % (A) 13 %; MCH 32.3 pg (25.0-35.0); MCHC 33.4 g/dL (31.0-37.0); MCV 96.7 fL (80.0-100.0); Macrocytosis Slight; Mean Platelet Volume 14.6; Monocytes # (A) 0.5 k/uL (0-1.0); Monocytes % (A) 7 %; Neutrophils # (A) 5.6 k/uL (1.3-7.7); Neutrophils % (A) 77 %; RBC 3.73 m/uL (4.30-5.90); RDW 18.9 % (11.5-15.5); WBC 7.3 k/uL (3.8-10.6)
[2021-08-30] MEDS: POTASSIUM BICARBONATE/CIT AC 20 MEQ TABLET.EFF NG-TUBE SCH ×2 (06:50→08:42)
[2021-08-30] MEDS: MIDODRINE 5 MG TAB PO SCH ×4 (07:06→17:36)
[2021-08-30] MEDS: BUMETANIDE 0.25 MG/ML 10 ML VIAL IV SCH ×2 (08:40→21:45)
[2021-08-30] MEDS: DOCUSATE 100 MG CAP PO SCH (08:43)
[2021-08-30] MEDS: PANTOPRAZOLE 40 MG TABLET PO SCH (08:43)
[2021-08-30] MEDS: ACYCLOVIR 200 MG CAP PO SCH ×2 (08:43→21:45)
[2021-08-30] MEDS: SPIRONOLACTONE 25 MG TAB PO SCH (08:43)
[2021-08-30] MEDS: ENOXAPARIN 40 MG/0.4 ML SYRINGE SQ SCH (08:43)
[2021-08-30] MEDS: POTASSIUM CHLORIDE ER 20 MEQ TAB.ER PO SCH (08:43)
[2021-08-30] MEDS: MIDODRINE 5 MG TAB PO STA ×2 (09:25→09:26)
--- NOTE | 2021-08-30 09:26 | P.PN ---
Subjective Patient is seen for follow-up for hyponatremia which is mostly hypervolemic. Has been receiving Samsca daily. Serum sodium is 128 today. Patient has been diuresing well Weight is down significantly Urine output documented at 2.7 L for last 24 hours Potassium was 3.4 Patient remains on dobutamine and was restarted on low-dose levo fed yesterday. Also started on midodrine yesterday. Dose is increased today Objective - Vital Signs Vital signs: Vital Signs Temp 97.4 F L 08/30/21 04:00 Pulse 99 08/30/21 07:00 Resp 12 08/30/21 07:00 BP 85/59 08/30/21 07:00 Pulse Ox 94 L 08/30/21 07:00 FiO2 Intake & Output 08/29/21 08/30/21 08/30/21 18:59 06:59 18:59 Intake Total 581.992 823.084 Output Total 1175 1550 Balance -593.008 -726.916 Intake: IV 240 260 Sodium Chloride 0.9% 1, 240 260 000 ml @ 20 mls/hr IV . Q24H [facility] Rx#:[id number] Intake, IV Titration 91.992 83.084 Amount Norepinephrine 4 mg In 91.992 83.084 Sodium Chloride 0.9% 250 ml @ 0.05 MCG/KG/MIN 16. 65 mls/hr IV .[id number] [facility] Rx#:[id number] Oral 250 480 Output: Urine 1175 1550 Other: Voiding Method Urinal Urinal - Exam Patient is awake, comfortable, not in any acute distress Alert oriented 3 Examination of the heart S1 and S2 Examination of the lungs bilateral breath sounds are heard Abdomen is soft nontender Examination of the lower extremities shows 1+ edema bilaterally [employer] exam grossly intact - Labs CBC & Chem 7: 08/30/21 05:36 08/30/21 05:36 Labs: Abnormal Lab Results - Last 24 Hours (Table) 08/29/21 08/30/21 08/30/21 Range/Units 15:32 05:36 05:36 RBC 3.73 L (4.30-5.90) m/uL Hgb 12.1 L (13.0-17.5) gm/dL Hct 36.1 L (39.0-53.0) % RDW 18.9 H (11.5-15.5) % Plt Count 140 L (150-450) k/uL Sodium 126 L 128 L (137-145) mmol/L Potassium 3.4 L (3.5-5.1) mmol/L Chloride 87 L (98-107) mmol/L Carbon Dioxide 34 H (22-30) mmol/L BUN 31 H (9-20) mg/dL Total Bilirubin 1.9 H (0.2-1.3) mg/dL Alkaline Phosphatase 132 H (38-126) U/L Total Protein 6.0 L (6.3-8.2) g/dL Albumin 3.4 L (3.5-5.0) g/dL Microbiology - Last 24 Hours (Table) 08/25/21 10:21 Blood Culture - Preliminary Blood No Growth after 96 hours 08/25/21 10:21 Blood Culture - Preliminary Blood No Growth after 96 hours Assessment and Plan Assessment: 1. Hypervolemic hyponatremia currently being diuresed. Improved. Receiving Samsca daily. Maintain patient on salt and fluid restriction. Patient is also advised to increase oral protein intake. The dobutamine drip can also worsen the hyponatremia as it is based in D5W. Zaroxolyn held as it can also worsen the hyponatremia since it is a thiazide diuretic. 2. 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 CHF acute on top of chronic, systolic with ejection fraction 20-25% 4. Moderate mitral regurgitation and mild tricuspid regurgitation with secondary pulmonary hypertension 5. Volume overload, improving Plan: Repeat Samsca 22.5 mg today Agree with decreasing Bumex Replace potassium Repeat labs in a.m.
[2021-08-30] MEDS ORDERED: TOLVAPTAN 15 MG 1/2 TABLET PO ONE (09:30)
[2021-08-30 09:47] LABS: Large Platelets Present; Poikilocytosis (M) Present
[2021-08-30 09:48] LABS: Platelet Count 140 k/uL (150-450); Target Cells Present
--- NOTE | 2021-08-30 11:11 | P.PN ---
Subjective Progress Note Date: 08/30/21 51-year-old patient was brought into the hospital because of low blood pressure and hypotension. Initially the patient was noted to run a low blood pressure by the and the patient was brought into the emergency department he was found to be hypotensive in the same time he had overt signs of heart failure including peripheral edema, elevated proBNP level, low sodium level and for that reason he was admitted to the intensive care unit. The patient has history of multiple myeloma and amyloidosis and the patient has cardiac amyloid he does have a component of chronic systolic and diastolic heart failure with impaired LV function and an ejection fraction of around 30-35%. The patient has been treated with chemotherapeutic agents on outpatient basis. Exact regimen is not known to me at this point and the patient is a very poor historian and is unable to recall that she was being offered. He has had previous hospitalizations for the same essentially due to hypotension and hyponatremia weakness. In any rate , the patient is currently in the intensive care unit. Overnight, the patient was gently resuscitated with fluids and I added some norepinephrine infusion for hemodynamic support and norepinephrine is running at a low dose at this point in time. The patient adequate urine output. Chest x-ray shows cardiomegaly with pulmonary vascular congestion and the patient has a proBNP level of 37,800. The patient did have also minor troponin leak with troponins being 0.8 and 0.7-0.6 respectively 3. Renal function is stable with a creatinine of 1.1 with a mean of 40 and admission sodium was 121 came back to 124. Cardiac rhythm is sinus. Normal correlation profile. Denies having any angina or palpitation. Denies having any chest pain. No fever or chills. No nausea vomiting or diarrhea or abdominal pain. No chest pain is reported this point in time. 08/26/2021, the patient on room air oxygen. Patient continues to be borderline hypotensive episode requiring pressors. 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 He has examination systolic and diastolic heart failure. The repeat echocardiac Ángel was done and the patient was found to have significant and further impairment of LV fun ction with an ejection fraction being down to 20-25% along with moderate degree of mitral regurgitation. At the same time, the patient is have significant amount of edema in lower extremity is bilaterally. For now, the patient on low dose norepinephrine infusion for hemodynamic support of blood pressure control. Incentive the patient is being diuresis with IV Lasix 20 mg IV push every 12 hours and the patient is producing adequate amount of urine output. The overall fluid balance over the past 24 hours has been -446 mL. Blood work shows a white cell count of 7.6 with a hemoglobin of 12. Sodium is 124. He has a 32 with a creatinine of 0.9. Electrodes are normal. UA is negative. The blood cultures negative. No other significant events overnight. No altered mentation. He is quite weak and debilitated. 08/27/2021, the patient's remains in intensive care unit. He has been started myopathy with an ejection fraction of 20-25%. I put the patient on dobutamine and cardiac arrhythmias running at 5 mg/kg/m. He was on IV Lasix and he was not producing much of urine output. Cardiology switched him to Bumex 2 mg IV every 8 hours. Zaroxolyn was also added to facilitate urine output 10 mg by mouth daily For now, the patient is on room air oxygen. Overall fluid balance over t he past 24 hours is negative on 46 mL. The patient remains on low dose norepinephrine infusion at 0.03 mcg/kg per minute. BUN is at 26 with a creatinine of 0.8. Sodium level is down to 123. The white 7.6 hemoglobin 12.1 and a platelet count of 82. Mother the patient was receiving subcu heparin for DVT prophylaxis and the patient developed significant drop in the platelet count during this current admission. IV fluids are currently at KVO. 08/28/2021, the patient is doing better compared to yesterday. Note that the patient has advanced cardiomyopathy patient has impaired left a ejection fraction of around 20-25%. He was started on dobutamine yesterday. Subsequently was also given Bumex 2 mg IV every 8 hours and Zaroxolyn 10 mg by mouth daily. Urine output improved dramatically and the patient has been in negative fluid balance of at least 5 L over the past 24 hours. As such, reports improvement in the abdominal lower extremity swelling. His much more comfortable on today's evaluation. He was also seen by nephrology. He was given 2 doses of some samsca nd the sodium level is up to 126. Potassium level is down to 2.7 due to aggressive diuresis and this needs to be replaced. Otherwise, the patient is tolerating dobutamine well at a dose of 5 mg/kg/m. No cardiac arrhythmias have been noted. Blood work from today shows a BUN of 23 with a creatinine 0.8 and a sodium level of 126. At the same time, the patient is a white cell count 6.3 with a hemoglobin of 11.9. Cardiology is on the case. Apparently, based on her conversations with [facility], is not a candidate for left ventricular assistive device and he carries a very poor prognosis based on his underlying AL amyloid disease. The patient has no new complaints otherwise. No altered mentation. No chest pain. ProBNP level is also improving and the level is down to 26,800. 08/29/2021, the patient remains in the ICU. No complaints. The patient remains on dobutamine at 5 mcg/kg per minute. The patient is also on examination of Lasix and Aldactone. Doing well. He has been negative fluid balance of another 2.8 L over the past 24 hours. Still has significant amount of edema in lower extremity bilaterally although improved. Potassium is being replaced. Most recent x-rays show a sodium level of 126, potassium level of 3.5 with a BUN of 86 and a creatinine of 0.8 with a BUN of 24. The white cell count is 7.3 with a hemoglobin of 11.6. The patient has no specific complaints. He'll be given midodrine should he have any hypotension. Note that overnight, the patient had to be started on low-dose levothyroid at 0.02 mcg/kg per minute for hemodynamic support. He has no chest pain. No significant shortness of breath. He remains on room air oxygen. Nephrology is on the case. Cardiology is on the case. 08/30/2021, the patient is doing well. The patient was taken off the dobutamine yesterday. Continues to diurese with a combination of Bumex and Aldactone. Remains in a negative fluid balance. Adequate diuresis. Fluid balance is negative and the patient's edema is also improving. He is currently on a minimal dose of norepinephrine infusion at 0.005 mcg/kg per minute. On his blood work, the patient has a white cell count of 7.3 with a hemoglobin of 12 and a platelet count of 140. Sodium is up to 128, potassium level is at 3.47 replaced with a bicarb level of 34 and a chloride level of 87. BUN is 31 with a creatinine of 0.8. No chest pain. No shortness of breath. He remains on room air oxygen. Objective - Vital Signs Vital signs: Vital Signs Temp 97.4 F L 08/30/21 04:00 Pulse 99 08/30/21 07:00 Resp 12 08/30/21 07:00 BP 85/59 08/30/21 07:00 Pulse Ox 94 L 08/30/21 07:00 FiO2 Intake & Output 08/29/21 08/30/21 08/30/21 18:59 06:59 18:59 Intake Total 581.992 823.084 5.856 Output Total 1175 1550 Balance -593.008 -726.916 5.856 Intake: IV 240 260 Sodium Chloride 0.9% 1, 240 260 000 ml @ 20 mls/hr IV . Q24H [facility] Rx#:[id number] Intake, IV Titration 91.992 83.084 5.856 Amount Norepinephrine 4 mg In 91.992 83.084 5.856 Sodium Chloride 0.9% 250 ml @ 0.05 MCG/KG/MIN 16. 65 mls/hr IV .[id number] [facility] Rx#:[id number] Oral 250 480 Output: Urine 1175 1550 Other: Voiding Method Urinal Urinal - Exam Gen. appearance, the patient is calm and comfortable likely distress and the patient is currently on room air oxygen with a pulse ox of 97%, breathing is nonlabored Head exam was generally normal. There was no scleral icterus or corneal arcus. Mucous membranes were moist. Neck was supple and with jugular venous distension, thyromegaly, or carotid bruits. Carotids were easily palpable bilaterally. There was no adenopathy. Lungs sounds are diminished and the patient has some limited bibasilar crackles. Cardiac exam revealed the PMI to be normally situated and sized. The rhythm was regular and no extrasystoles were noted during several minutes of auscultation. The first and second heart sounds were normal and physiologic splitting of the second heart sound was noted. There were no murmurs, rubs, clicks, or gallops. Abdominal exam revealed normal bowel sounds. The abdomen was soft, non-tender, and without masses, organomegaly, or appreciable enlargement of the abdominal aorta. Extremities revealed +1 pitting edema no cyanosis or clubbing. Neurologically, the patient is awake and alert and the patient does not have any focal neurological deficit. Cranial nerves are essentially intact. Examination of the skin revealed no evidence of significant rashes, suspicious appearing nevi or other concerning lesions. - Labs CBC & Chem 7: 08/30/21 05:36 08/30/21 05:36 Labs: Abnormal Lab Results - Last 24 Hours (Table) 08/29/21 08/30/21 08/30/21 Range/Units 15:32 05:36 05:36 RBC 3.73 L (4.30-5.90) m/uL Hgb 12.1 L (13.0-17.5) gm/dL Hct 36.1 L (39.0-53.0) % RDW 18.9 H (11.5-15.5) % Plt Count 140 L (150-450) k/uL Lymphocytes # 0.9 L (1.0-4.8) k/uL Sodium 126 L 128 L (137-145) mmol/L Potassium 3.4 L (3.5-5.1) mmol/L Chloride 87 L (98-107) mmol/L Carbon Dioxide 34 H (22-30) mmol/L BUN 31 H (9-20) mg/dL Total Bilirubin 1.9 H (0.2-1.3) mg/dL Alkaline Phosphatase 132 H (38-126) U/L Total Protein 6.0 L (6.3-8.2) g/dL Albumin 3.4 L (3.5-5.0) g/dL Microbiology - Last 24 Hours (Table) 08/25/21 10:21 Blood Culture - Preliminary Blood No Growth after 96 hours 08/25/21 10:21 Blood Culture - Preliminary Blood No Growth after 96 hours Assessment and Plan Plan: Syncope, likely secondary to hypotension, currently on a minimal dose of norepinephrine infusion and midodrine. Acute on top of chronic decompensated heart failure with secondary hypotension. The patient also has some cardiomegaly and elevated proBNP level on today's blood work in addition to hyponatremia. This is typical of an acute on top of chronic decompensated heart failure. Echocardiogram was repeated and the patient has showed further decompensation in the left ventricular ejection fraction which is down to 20-25% along with moderate degree of mitral regurgitation. The patient has poor LV function at this point in time. The condition was optimized with a combination of dobutamine and Bumex/Zaroxolyn/Aldactone Diuresis induced hypokalemia, needs to be replaced Hyponatremia and the sodium level is up to 126, the patient was given samsca and the sodium level is up to 128 Acute on chronic hypotension, most likely cardiogenic in nature. Doubt underlying hypovolemia or septic shock. Chronic systolic and diastolic heart failure with ejection fraction of 30-35%, with subsequent further interval decompensation and drop in LV function down to 20-25% Moderate mitral regurgitation and mild tricuspid regurgitation with secondary pulmonary hypertension with a PA pressure 47 Troponin elevation, nonspecific, not related to an acute coronary event, from his cardiac catheterization at shown nonocclusive disease and a troponin peaked at 0.8. History of cardiac amyloidosis Acute on chronic hyponatremia, secondary to decompensated CHF History of TIA History of chronic constipation/ileus, recovered Thrombocytopenia, acute Generalized debility seconds above-mentioned comorbidities Plan IV to KV0 Dobutamine has been discontinued Continue Bumex 2 mg IV every 12 hours and the dose will be reduced gradually and hold on Zaroxolyn for today, suggest continuing this for another 24 hours Aldactone was added by cardiology Titrate norepinephrine dose to maintain a mean artery pressure above 65, midodrine was added and the patient will be gradually weaned off the norepinephrine, I'm going to increase the midodrine dose to 10 mg 3 times a day Monitor sodium level is up to 128 Stop the subcu heparin and check a baseline HIT antibodies were checked and the levels were negative Appreciate cardiology and oncology workup , involvement and advice The pro-calcitonin level is at 0.19 We'll continue to follow. The patient is not a candidate for a left ventricular assist device With the patient on Lovenox 40 mg subcu daily basis for DVT prophylaxis May transfer out of the intensive care unit at a later stage of cardiac c learance was also given.
[2021-08-30] MEDS: ACETAMINOPHEN TAB 325 MG TAB PO PRN (12:16)
[2021-08-30] MEDS: SODIUM CHLORIDE 0.9% 1,000 ML IV SCH (12:19)
[2021-08-30] MEDS: NOREPINEPHRINE 4 MG in SODIUM CHLORIDE 0.9% 250 ML IV SCH (16:11)
--- NOTE | 2021-08-30 17:12 | PN ---
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 He has acute exacerbation of chronic systolic heart failure. He was on dobutamine and Levophed. Levophed is off. Dobutamine was stopped yesterday. He is currently on Bumex and Zaroxolyn and has lost nearly 20 pounds since admission. He continues to have some leg edema but overall has been doing much better. He is on midodrine, the dose of which had been increased. On exam, heart rate is 98 beats per minute. Blood pressure is 92/68, respiratory rate is 18. Chest exam reveals good air entry bilaterally without any crackles or rhonchi. Heart exam reveals first and second heart sounds and a systolic murmur at the left lower sternal border. Abdomen is soft. Examination of extremities reveals bilateral moderate edema. Labs show a hemoglobin of 12.1, platelet count is 140. Creatinine is 0.85. ASSESSMENT AND PLAN: Acute exacerbation of chronic systolic heart failure secondary to cardiomyopathy related to amyloidosis. Patient will continue current medications. MMODL / IJN: [id number] /
[2021-08-30] MEDS: DULoxetine HCL 30 MG CAPSULE.DR PO SCH (21:45)
--- NOTE | 2021-08-31 00:57 | P.PN ---
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 he was to [place] for multiple myeloma and is on treatment for that and patient did have improvement in the light chain levels and patient was brought into ER because of hypotension pat ient does have significant peripheral edema elevated BNP found to have a very low blood pressure patient doesn't have any fever chills no evidence of sepsis at this time patient is on acyclovir as an outpatient for prophylaxis secondary to chemotherapy. Patient takes Bumex at home along with lisinopril patient is presently on 2 L of oxygen, patient's creatinine is around 1.1 which is around his baseline. Patient had mild shortness of breath Orthopnea proximal nocturnal dyspnea mildly elevated troponin of 0.6 and 6. Patient has low sodium of 124 08/26/2021 Patient is seen in follow-up continues to be in the ICU with multiple medical consultations including pulmonary, cardiology, oncology following. Patient continues to be on pressor support and remains hypotensive and also volume over load. Patient is maintained on IV Lasix along with dobutamine and Levophed and will continue. His most recent echo displaying an EF of 20-25% with global hypokinesis. Patient continues with some shortness of breath with exertion although is maintaining oxygen saturations above 92% on room air. Patient with extreme weakness and will have physical therapy evaluate. Patient is afebrile and denies any nausea or vomiting, oral intake is minimal. 08/27/2021 Patient is seen this morning currently sitting up in the chair continues to be in the ICU with multiple medical consultations following. is at the bedside with questions and concerns were answered. Patient continues to report dizziness and lightheadedness and unsteady when attempting to get up and continues to have low blood pressures requiring pressor support. Patient reports he is feeling somewhat better but still feels weakness. Patient is afebrile and denies any chest pain or shortness of breath. Patient currently on room air although does feel dyspnea with exertion. Patient is continued on Aldactone oral and being transitioned to Bumex IV every 8 hours and Lasix has been discontinued. Patient's sodium continues to be low with nephrology following and giving a dose of Samsca. BNP remains relatively high at 26,800. Creatinine function is stable. 08/28/2021 Patient continues in the MICU with multiple medical consultations following. Sodium is slightly improved after receiving doses of samsca. Nephrology following closely. Cardiology following as well and weaning off pressors. Patient reports to feeling much improved from yesterday. Patient is maintained on IV bumex and will continue. Patient sitting up in the chair on room air and denies shortness of breath. Patient reports to feeling somewhat less dizzy and lightheaded with movement. Patient is afebrile. Oncology following and patient follows with [facility] in [place]. Potassium low and being replaced per protocol. 08/29/2021 Patient is in the MICU. Awake alert and oriented x3. Lying in the bed. Hypotension currently on pressor support and also on dobutamine drip. Still having bilateral significant lower extremity edema. No complaints of chest pain or shortness of breath. Saturating at 92% on room air. Patient is being continued on Bumex IV, metolazone, Aldactone and also on midodrine 5 mg 3 times daily. Cardiology and pulmonary is on board. Laboratory test showed WBC 7.3 hemoglobin 11.6 and platelets 114 Sodium 126 potassium 3.5 chloride 86 bicarb is 31 BUN 24 and creatinine 0.81 and bilirubin level 1.8 and albumin 3.3 08/30/2021 Patient is currently in the MICU. Resting in bed. Awake alert [place] x3. Breathing status is better. Patient is off pressor support and also on dobutamine drip. Currently going well Bumex and Aldactone. Bilateral leg swelling is improving. No cough or sputum production. No nausea vomiting abdominal pain or diarrhea. No headache or dizziness lightheadedness. Laboratory test showed WBC 7.3 hemoglobin 12.1 and platelets 140 Sodium 128 potassium 3.4 chloride 87 bicarb is 24 BUN 31 and creatinine 0.85 magnesium 2.0. Review of systems: Constitutional: reports of fatigue, no reports of fever, or chills Cardiovascular: No reports of chest pain or palpitations Respiratory: no reports of exertional shortness of breath GI: No reports of nausea, vomiting, or diarrhea, decreased appetite : No reports of dysuria or retention Neurovascular: reports of weakness and some improvement in his dizziness and lightheadedness with standing All medications have been reviewed Objective - Vital Signs Vital signs: Vital Signs Temp 98.6 F 08/30/21 12:00 Pulse 101 H 07/24/22 13:00 Resp 14 08/30/21 13:00 BP 85/58 08/30/21 13:00 Pulse Ox 95 08/30/21 13:00 FiO2 Intake & Output 08/29/21 08/30/21 08/30/21 18:59 06:59 18:59 Intake Total 581.992 823.084 558.938 Output Total 1175 1550 500 Balance -593.008 -726.916 58.938 Weight 81.8 kg Intake: IV 240 260 60 Sodium Chloride 0.9% 1, 240 260 60 000 ml @ 20 mls/hr IV . Q24H [facility] Rx#:[id number] Intake, IV Titration 91.992 83.084 6.938 Amount Norepinephrine 4 mg In 91.992 83.084 6.938 Sodium Chloride 0.9% 250 ml @ 0.05 MCG/KG/MIN 16. 65 mls/hr IV .[id number] [facility] Rx#:[id number] Oral 250 480 492 Output: Urine 1175 1550 500 Other: Voiding Method Urinal Urinal Toilet Urinal # Bowel Movements 1 - Exam PHYSICAL EXAMINATION: GENERAL: The patient is alert and oriented x3, not in any acute distress. Well developed, well nourished. HEENT: Pupils are round and equally reacting to light. EOMI. No scleral icterus. No conjunctival pallor. Normocephalic, atraumatic. No pharyngeal erythema. No thyromegaly. CARDIOVASCULAR: S1 and S2 present. No murmurs, rubs, or gallops. PULMONARY: Chest is clear to auscultation, no wheezing or crackles. ABDOMEN: Soft, nontender, nondistended, normoactive bowel sounds. No palpable organomegaly. MUSCULOSKELETAL: No joint swelling or deformity. EXTREMITIES: No cyanosis, clubbing,-bilateral pitting pedal edema 2+ NEUROLOGICAL: Gross neurological examination did not reveal any focal deficits. Diffusely weak SKIN: No rashes. - Labs CBC & Chem 7: 08/30/21 05:36 08/30/21 05:36 Labs: Abnormal Lab Results - Last 24 Hours (Table) 08/29/21 08/30/21 08/30/21 Range/Units 15:32 05:36 05:36 RBC 3.73 L (4.30-5.90) m/uL Hgb 12.1 L (13.0-17.5) gm/dL Hct 36.1 L (39.0-53.0) % RDW 18.9 H (11.5-15.5) % Plt Count 140 L (150-450) k/uL Lymphocytes # 0.9 L (1.0-4.8) k/uL Sodium 126 L 128 L (137-145) mmol/L Potassium 3.4 L (3.5-5.1) mmol/L Chloride 87 L (98-107) mmol/L Carbon Dioxide 34 H (22-30) mmol/L BUN 31 H (9-20) mg/dL Total Bilirubin 1.9 H (0.2-1.3) mg/dL Alkaline Phosphatase 132 H (38-126) U/L Total Protein 6.0 L (6.3-8.2) g/dL Albumin 3.4 L (3.5-5.0) g/dL Microbiology - Last 24 Hours (Table) 08/25/21 10:21 Blood Culture - Preliminary Blood No Growth after 120 hours 08/25/21 10:21 Blood Culture - Preliminary Blood No Growth after 120 hours Assessment and Plan Assessment: Assessment: -Hypotension, dizziness and 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, patient had ejection fraction of 30% patient also has 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 patient is currently being weaned off pressor support. -Hypervolemic hyponatremia -hypokalemia -Mildly elevated troponins secondary to heart failure -Congestive heart failure both systolic dysfunction as well as diastolic dysfunction -Multiple myeloma leading to amyloidosis for which patient is undergoing chemotherapy patient had improvement in light chains, follows with [facility] [place] -Severe mitral valvular disease again secondary to amyloidosis -Depression -Gastroesophageal reflux disease -DVT prophylaxis -Full code Plan: Recommend continue monitoring in the ICU with multiple medical consultations following Lasix discontinued and patient maintained on IV Bumex with nephrology following Hyponatremia and is status post 2 doses of samsca. 126 today. Hypokalemia today and being replaced per protocol. Cardiology following closely along with oncology and pulmonary weaned off pressor support, bp maintained in the 80's systolic Encouraged increased activity as tolerated and will have physical therapy evaluate patient Recommend repeat labs in a.m. Due to multiple complex medical issues, overall prognosis is extremely guarded Time with Patient: Greater than 30
[2021-08-31] MEDS: NOREPINEPHRINE 4 MG in SODIUM CHLORIDE 0.9% 250 ML IV SCH ×2 (01:40→12:03)
[2021-08-31] MEDS ORDERED: Potassium Replacement Protocol 1 EACH MISC MISCELLANE PRN (08:18)
[2021-08-31] MEDS: PANTOPRAZOLE 40 MG TABLET PO SCH (08:29)
[2021-08-31] MEDS: ENOXAPARIN 40 MG/0.4 ML SYRINGE SQ SCH (08:29)
[2021-08-31] MEDS: POTASSIUM CHLORIDE ER 20 MEQ TAB.ER PO SCH ×4 (08:29→12:03)
[2021-08-31] MEDS: MIDODRINE 5 MG TAB PO SCH ×2 (08:29→11:57)
[2021-08-31] MEDS: ACYCLOVIR 200 MG CAP PO SCH (08:30)
[2021-08-31] MEDS: BUMETANIDE 0.25 MG/ML 10 ML VIAL IV SCH (08:30)
[2021-08-31] MEDS: SPIRONOLACTONE 25 MG TAB PO SCH (08:30)
[2021-08-31] MEDS: metOLazone 5 MG TAB PO SCH (08:31)
--- NOTE | 2021-08-31 08:31 | P.PN ---
Subjective Progress Note Date: 08/31/21 Patient is a 51-year-old gentleman with a history of congestive heart failure secondary to severe cardiomyopathy and amyloidosis. Patient was admitted to the hospital with acute exacerbation of chronic systolic heart failure. Patient was on a dobutamine and levophed drip. Which both have been discontinued. He is currently being maintained on Bumex, Zaroxolyn, spironolactone. Today on physical exam he is noted to still have lower extremity edema. Pressures are maintained with midodrine. On exam heart rate is 100 bpm. Blood pressure was 88/65, prior to morning midodrine dose. Labs show hemoglobin 12.1 potassium 3.4 BUN 31 creatinine 0.85. Will supplement potassium. Patient is awaiting [facility] to [address] [place] [address] once a bed is available. He is schedule tomorrow for outpatient chemo. Objective - Vital Signs Vital signs: Vital Signs Temp 98.2 F 08/31/21 00:00 Pulse 99 08/31/21 05:00 Resp 20 08/31/21 04:00 BP 90/66 08/31/21 04:00 Pulse Ox 97 08/31/21 04:00 FiO2 Intake & Output 08/30/21 08/31/21 08/31/21 18:59 06:59 18:59 Intake Total 788.938 Output Total 875 245 Balance -86.062 -245 Weight 81.8 kg Intake: IV 60 Sodium Chloride 0.9% 1, 60 000 ml @ 20 mls/hr IV . Q24H [facility] Rx#:[id number] Intake, IV Titration 6.938 Amount Norepinephrine 4 mg In 6.938 Sodium Chloride 0.9% 250 ml @ 0.05 MCG/KG/MIN 16. 65 mls/hr IV .[id number] [facility] Rx#:[id number] Oral 722 Output: Urine 875 245 Other: Voiding Method Toilet Toilet Urinal Urinal # Voids 1 1 # Bowel Movements 1 - Exam PHYSICAL EXAM: VITAL SIGNS: Reviewed. GENERAL: Well-developed in no acute distress. HEENT: Head is normocephalic. Pupils are equal, round. Sclerae anicteric. Mucous membranes of the mouth are moist. NECK: Supple. No JVD or thyromegaly RESPIRATORY: Respirations even and unlabored. Lungs diminished to auscultation bilaterally. CARDIO: Regular rate and rhythm. S1 and S2 heard. No murmur or gallops. EXTREMITIES: Normal range of motion. No clubbing or cyanosis. Peripheral pulses intact. bilateral lower extremity edema NEURO: Orientated to person, time, mood is appropriate - Labs CBC & Chem 7: 08/30/21 05:36 08/30/21 05:36 Labs: Abnormal Lab Results - Last 24 Hours (Table) 08/30/21 Range/Units 05:36 Plt Count 140 L (150-450) k/uL Lymphocytes # 0.9 L (1.0-4.8) k/uL Microbiology - Last 24 Hours (Table) 08/25/21 10:21 Blood Culture - Preliminary Blood No Growth after 120 hours 08/25/21 10:21 Blood Culture - Preliminary Blood No Growth after 120 hours Assessment and Plan Assessment: Acute on chronic systolic congestive heart failure, secondary to cardiac amylo idosis and multiple myeloma Hypotension History of multiple myeloma Hypokalemia Plan: Continue with all current cardiac medications Continue with accurate I's and O's and daily weights Continue with telemetry monitoring Further recommendations based on clinical course The above impression and plan of care have been discussed and directed by the signing physician. Charlette Xiao, nurse practitioner, acting as scribe for signing physician.
[2021-08-31] MEDS: DOCUSATE 100 MG CAP PO SCH (08:33)
--- NOTE | 2021-08-31 08:38 | XR ---
EXAMINATION TYPE: XR chest 1V portable DATE OF EXAM: 08/31/2021 COMPARISON: Chest x-ray 08/24/2021 HISTORY: Congestive heart failure TECHNIQUE: Single frontal view of the chest is obtained. FINDINGS: There is no focal air space opacity, pleural effusion, or pneumothorax seen. The cardiac silhouette size is enlarged The osseous structures are intact. Question some prominence of interstiti um. IMPRESSION: Difficult to exclude pulmonary venous hypertension and interstitial edema
[2021-08-31 08:50] VITALS: TEMP 98
--- NOTE | 2021-08-31 10:02 | P.PN ---
Subjective Patient is seen for follow-up for hyponatremia which is mostly hypervolemic. Has been receiving Samsca daily. Serum sodium is 128 yesterday. Patient has been diuresing well Weight is down significantly Urine output documented at 1.1 L for last 24 hours Potassium was 3.4 Patient is off of dobutamine and levo fed. He is maintained on midodrine 10 mg 3 times a day. No significant complaints today. He wants to go home Objective - Vital Signs Vital signs: Vital Signs Temp 98.0 F 08/31/21 08:00 Pulse 101 H 08/31/21 08:00 Resp 6 L 08/31/21 08:00 BP 88/69 08/31/21 08:00 Pulse Ox 96 08/31/21 08:00 FiO2 Intake & Output 08/30/21 08/31/21 08/31/21 18:59 06:59 18:59 Intake Total 788.938 Output Total 875 245 Balance -86.062 -245 Weight 81.8 kg Intake: IV 60 Sodium Chloride 0.9% 1, 60 000 ml @ 20 mls/hr IV . Q24H [facility] Rx#:[id number] Intake, IV Titration 6.938 Amount Norepinephrine 4 mg In 6.938 Sodium Chloride 0.9% 250 ml @ 0.05 MCG/KG/MIN 16. 65 mls/hr IV .[id number] [facility] Rx#:[id number] Oral 722 Output: Urine 875 245 Other: Voiding Method Toilet Toilet Toilet Urinal Urinal Urinal # Voids 1 1 # Bowel Movements 1 - Exam Patient is awake, comfortable, not in any acute distress Alert oriented 3 Examination of the heart S1 and S2 Examination of the lungs bilateral breath sounds are heard Abdomen is soft nontender Examination of the lower extremities shows 1+ edema bilaterally [employer] exam grossly intact - Labs CBC & Chem 7: 08/30/21 05:36 08/30/21 05:36 Labs: Microbiology - Last 24 Hours (Table) 08/25/21 10:21 Blood Culture - Preliminary Blood No Growth after 120 hours 08/25/21 10:21 Blood Culture - Preliminary Blood No Growth after 120 hours Assessment and Plan Assessment: 1. Hypervolemic hyponatremia currently being diuresed. Improved. Receiving Samsca daily. Maintain patient on salt and fluid restriction. Patient is also advised to increase oral protein intake. 2. 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 CHF acute on top of chronic, systolic with ejection fraction 20-25% 4. Moderate mitral regurgitation and mild tricuspid regurgitation with secondary pulmonary hypertension 5. Volume overload, improving Plan: Will does Samsca based on sodium from today. Continue current diuretics
[2021-08-31 11:55] LABS: Potassium 3.6 mmol/L (3.5-5.1)
--- NOTE | 2021-08-31 11:59 | P.PN ---
Subjective Progress Note Date: 08/31/21 Principal diagnosis: Acute on chronic systolic congestive heart failure and hypotension secondary to LV dysfunction. 51-year-old patient was brought into the hospital because of low blood pressure and hypotension. Initially the patient was noted to run a low blood pressure by the and the patient was brought into the emergency department he was found to be hypotensive in the same time he had overt signs of heart failure including peripheral edema, elevated proBNP level, low sodium level and for that reason he was admitted to the intensive care unit. The patient has history of multiple myeloma and amyloidosis and the patient has cardiac amyloid he does have a compo nent of chronic systolic and diastolic heart failure with impaired LV function and an ejection fraction of around 30-35%. The patient has been treated with chemotherapeutic agents on outpatient basis. Exact regimen is not known to me at this point and the patient is a very poor historian and is unable to recall that she was being offered. He has had previous hospitalizations for the same essentially due to hypotension and hyponatremia weakness. In any rate , the patient is currently in the intensive care unit. Overnight, the patient was gently resuscitated with fluids and I added some norepinephrine infusion for hemodynamic support and norepinephrine is running at a low dose at this point in time. The patient adequate urine output. Chest x-ray shows cardiomegaly with pulmonary vascular congestion and the patient has a proBNP level of 37,800. The patient did have also minor troponin leak with troponins being 0.8 and 0.7-0.6 respectively 3. Renal function is stable with a creati nine of 1.1 with a mean of 40 and admission sodium was 121 came back to 124. Cardiac rhythm is sinus. Normal correlation profile. Denies having any angina or palpitation. Denies having any chest pain. No fever or chills. No nausea vomiting or diarrhea or abdominal pain. No chest pain is reported this point in time. 08/30/2021, the patient is doing well. The patient was taken off the d obutamine yesterday. Continues to diurese with a combination of Bumex and Aldactone. Remains in a negative fluid balance. Adequate diuresis. Fluid balance is negative and the patient's edema is also improving. He is currently on a minimal dose of norepinephrine infusion at 0.005 mcg/kg per minute. On his blood work, the patient has a white cell count of 7.3 with a hemoglobin of 12 and a platelet count of 140. Sodium is up to 128, potassium level is at 3.47 replaced with a bicarb level of 34 and a chloride level of 87. BUN is 31 with a creatinine of 0.8. No chest pain. No shortness of breath. He remains on room air oxygen. Reevaluated today on 08/31/21, patient remains in the ICU, is presently overflow. Patient is comfortable, he is on room air, he is saturating 96% on room air. Hemodynamically stable blood pressure 92/68, his heart rate is 102. Remains in negative fluid balance, remains on diuretics. And he is off dobutamine. I have a feeling that the patient could be transferred out of the ICU to a cardiac floor, and if agreeable by cardiology even consider discharging the patient home. Again the patient is not in any distress. Continues to have slight swelling in his lower extremities. His labs were all reviewed, sodium is a bit low at 127. Profile is normal CBC is relatively normal Objective - Vital Signs Vital signs: Vital Signs Temp 98.0 F 08/31/21 08:00 Pulse 101 H 08/31/21 08:00 Resp 6 L 08/31/21 08:00 BP 88/69 08/31/21 08:00 Pulse Ox 96 08/31/21 08:00 FiO2 Intake & Output 08/30/21 08/31/21 08/31/21 18:59 06:59 18:59 Intake Total 788.938 Output Total 875 245 Balance -86.062 -245 Weight 81.8 kg 81.8 kg Intake: IV 60 Sodium Chloride 0.9% 1, 60 000 ml @ 20 mls/hr IV . Q24H [facility] Rx#:[id number] Intake, IV Titration 6.938 Amount Norepinephrine 4 mg In 6.938 Sodium Chloride 0.9% 250 ml @ 0.05 MCG/KG/MIN 16. 65 mls/hr IV .[id number] [facility] Rx#:[id number] Oral 722 Output: Urine 875 245 Other: Voiding Method Toilet Toilet Toilet Urinal Urinal Urinal # Voids 1 1 # Bowel Movements 1 - Exam Physical Exam: Revealed a 51-year-old white male on room air, in no distress. Head: Atraumatic, normocephalic. HEENT:[Neck is supple.] [No neck masses.] [No thyromegaly.] [No JVD.] Chest: [Clear throughout, no crackles, no rhonchi, no wheezes.] Cardiac Exam: [Normal S1 and S2, no S3 gallop, no murmur.] Abdomen: [Soft, nontender, no megaly, no rebound, no guarding, normal bowel sounds.] Extremities: [No clubbing, trace of bipedal edema, no cyanosis.] Neurological Exam: [No focal neurologic deficit.] Alert oriented 3 Psychiatric: Normal mood affect and normal mental status examination. Skin: No rashes - Labs CBC & Chem 7: 08/30/21 05:36 08/30/21 05:36 Labs: Microbiology - Last 24 Hours (Table) 08/25/21 10:21 Blood Culture - Preliminary Blood No Growth after 120 hours 08/25/21 10:21 Blood Culture - Preliminary Blood No Growth after 120 hours Assessment and Plan Assessment: Impression: Hypotension secondary to severe LV dysfunction, associated with syncope Acute on chronic systolic and diastolic congestive heart failure, LV dysfunction with ejection fraction of 20-25%. Electrolytes imbalance secondary to diuretics. Moderate mitral regurgitation and secondary pulmonary hypertension with PA pressure 47 Cardiac amyloidosis History of TIA Chronic constipation Generalized medical debility. Recommendation: Continue diuretics Transfer patient out of the ICU to a cardiac floor with monitor. Continue midodrine. Continue subcu heparin. Continue Lovenox Transfer out of the ICU, consider discharging the patient home once he is cleared by cardiology. We'll continue to follow while inpatient. Time with Patient: Less than 30
[2021-08-31 12:02] VITALS: BP 93/67; PULSE 103; RESP 13
[2021-08-31] MEDS ORDERED: TOLVAPTAN 15 MG TABLET PO ONE (13:00)
[2021-08-31] MEDS ORDERED: TOLVAPTAN 15 MG 1/2 TABLET PO ONE (13:00)
--- NOTE | 2021-08-31 17:16 | P.PN ---
Subjective Progress Note Date: 08/31/21 Principal diagnosis: NSTEMI, CHF, cardiac amyloidosis Pt is feeling good, breathing better, he is ambulating Objective - Vital Signs Vital signs: Vital Signs Temp 98.0 F 08/31/21 08:00 Pulse 103 H 08/31/21 12:00 Resp 13 08/31/21 12:00 BP 93/67 08/31/21 12:00 Pulse Ox 97 08/31/21 12:00 FiO2 Intake & Output 08/30/21 08/31/21 08/31/21 18:59 06:59 18:59 Intake Total 788.938 360 Output Total 875 245 Balance -86.062 -245 360 Weight 81.8 kg 81.8 kg Intake: IV 60 Sodium Chloride 0.9% 1, 60 000 ml @ 20 mls/hr IV . Q24H [facility] Rx#:[id number] Intake, IV Titration 6.938 Amount Norepinephrine 4 mg In 6.938 Sodium Chloride 0.9% 250 ml @ 0.05 MCG/KG/MIN 16. 65 mls/hr IV .[id number] [facility] Rx#:[id number] Oral 722 360 Output: Urine 875 245 Other: Voiding Method Toilet Toilet Toilet Urinal Urinal Urinal # Voids 1 1 1 # Bowel Movements 1 - Constitutional General appearance: Present: cooperative, no acute distress, thin - EENT Eyes: Present: anicteric sclerae, EOMI ENT: Present: hearing grossly normal - Respiratory Respiratory: bilateral: CTA - Cardiovascular Heart sounds: normal: S1, S2 - Gastrointestinal General gastrointestinal: Present: normal bowel sounds, soft - Neurologic Neurologic: Present: CNII-XII intact - Musculoskeletal Musculoskeletal: Present: generalized weakness - Psychiatric Psychiatric: Present: A&O x's 3, appropriate affect, intact judgment & insight - Labs CBC & Chem 7: 08/30/21 05:36 08/31/21 10:47 Labs: Abnormal Lab Results - Last 24 Hours (Table) 08/31/21 Range/Units 10:47 Sodium 127 L (137-145) mmol/L Chloride 83 L (98-107) mmol/L Carbon Dioxide 34 H (22-30) mmol/L Microbiology - Last 24 Hours (Table) 08/25/21 10:21 Blood Culture - Final Blood No Growth after 144 hours 08/25/21 10:21 Blood Culture - Final Blood No Growth after 144 hours Assessment and Plan (1) Cardiac amyloidosis Status: Acute Priority: High Code(s): E85.4 - ORGAN-LIMITED AMYLOIDOSIS; I43 - CARDIOMYOPATHY IN DISEASES CLASSIFIED ELSEWHERE SNOMED Code(s): 57076062 (2) Dehydration Status: Acute Priority: High Code(s): E86.0 - DEHYDRATION SNOMED Code(s): 46038720 Plan: Return to Dr. Hill for f/u SHEYLA. Will ensure notes and testing CC to Dr. [place] Cont acyclovir Doctor attests: I performed a history and physical examination of this patient, developed impression and plan of care. Discussed with dictator. I agree with dictators note, documented as a scribe.
--- NOTE | 2021-09-02 16:40 | P.DS ---
Providers Date of admission: 08/24/21 23:17 Expected date of discharge: 08/31/21 Attending physician: Karel Murry Consults: 08/24/21 23:17 Consult Physician Stat Consulting Provider: Richard Taylor Consult Reason/Comments: Intensive care Do you want consulting provider notified?: Already Contacted Consult Physician Urgent Consulting Provider: Alex Avila Consult Reason/Comments: Elevated troponin/N STEMI Do you want consulting provider notified?: Already Contacted 08/25/21 09:07 Consult Physician Routine Consulting Provider: Ramez Chi Consult Reason/Comments: history of cardiac amylodoisis, multiple myeloma Do you want consulting provider notified?: Yes 08/27/21 08:50 Consult Physician Urgent Consulting Provider: Zion Marvin Consult Reason/Comments: hyponatremia Do you want consulting provider notified?: Yes Primary care physician: Xin Mills Hospital Course: Final diagnosis -Hypotension, dizziness and 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, patient had ejection fraction of 30% patient also has 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 Patient will follow-up with Dr. Mills in the outpatient setting upon discharge. Patient is to also follow-up with nephrology, cardiology, and [facility] [place] as scheduled. Patient has a [facility] appointment tomorrow morning that he does not want to miss. Total time taken is greater than 35 minutes. Hospital course This is a 51-year-old male who was recently admitted with increasing bilateral peripheral edema elevated BNP, hypotension and volume overload requiring pressor support. Patient was closely monitored in the ICU with multiple medical consultations including pulmonary, cardiology, and oncology following. Patient was diuresed and maintained on pressor support and overall prognosis is extremely poor and guarded. Patient continues to follow with the [facility] and has an appointment tomorrow and has been cleared by other consultations for follow-up in the outpatient setting. Encourage the patient also follow-up with cardiology and his primary care provider on discharge. Currently no reports of chest pain, shortness of breath, or palpitations. Patient is afebrile. No reports of nausea or vomiting and patient is tolerating diet. Patient will be discharged home today. Extremely guarded prognosis Physical exam: Gen: This is a 3-year-old male awake, alert and oriented 3 HEENT: Head is atraumatic, normocephalic. Pupils equal, round. Sclerae is anicteric. NECK: Supple. No JVD. No lymphadenopathy. No thyromegaly. LUNGS: Clear to auscultation. No wheezes or rhonchi. No intercostal retractions. HEART: Regular rate and rhythm. No murmur. ABDOMEN: Soft. Bowel sounds are present. No masses. No tenderness. EXTREMITIES: No pedal edema. No calf tenderness. Bilateral lower extremity edema noted with improvement NEUROLOGICAL: Patient is awake, alert and oriented x3. Cranial nerves 2 through 12 are grossly intact. Please refer to medication reconciliation sheet for a list of medications. The impression and plan of care has been dictated by Ashley Nielsen, Nurse Practitioner as directed. Dr. Jeanmarie MD I have performed a history and examination and MDM of this patient, discussed the same with the dictator, and agree with the dictator's assessment and plan as written ,documented as a scribe. Based on total visit time, I have performed more than 50% of the visit. Patient Condition at Discharge: Fair Plan - Discharge Summary Discharge Rx Participant: Yes New Discharge Prescriptions: New Spironolactone [Aldactone] 25 mg PO DAILY 30 Days #30 tab Midodrine [ProAmatine] 10 mg PO AC-TID 30 Days #90 tab Continue Acetaminophen Tab [Tylenol] 650 mg PO Q6HR PRN tab PRN Reason: Fever And/ Or Pain Bumetanide [BUMEX] 2 mg PO DAILY #0 Lactulose 10 gm PO DAILY PRN PRN Reason: Constipation Potassium Chloride ER [K-Dur 20] 20 meq PO DAILY Ondansetron [Zofran] 4 mg PO QID PRN PRN Reason: Nausea Omeprazole 40 mg PO DAILY Acyclovir [Zovirax] 400 mg PO BID DULoxetine HCL [Cymbalta] 30 mg PO HS Docusate [Colace] 200 mg PO DAILY Changed Bumetanide [BUMEX] 2 mg PO HS #0 Discontinued lisinopriL [Zestril] 2.5 mg PO HS Discharge Medication List Acetaminophen Tab [Tylenol] 650 mg PO Q6HR PRN tab 06/24/21 [Rx] Bumetanide [BUMEX] 2 mg PO DAILY #0 07/13/21 [Rx] Acyclovir [Zovirax] 400 mg PO BID 08/24/21 [History] DULoxetine HCL [Cymbalta] 30 mg PO HS 08/24/21 [History] Docusate [Colace] 200 mg PO DAILY 08/24/21 [History] Lactulose 10 gm PO DAILY PRN 08/24/21 [History] Omeprazole 40 mg PO DAILY 08/24/21 [History] Ondansetron [Zofran] 4 mg PO QID PRN 08/24/21 [History] Potassium Chloride ER [K-Dur 20] 20 meq PO DAILY 08/24/21 [History] Bumetanide [BUMEX] 2 mg PO HS #0 08/31/21 [Rx] Midodrine [ProAmatine] 10 mg PO AC-TID 30 Days #90 tab 08/31/21 [Rx] Spironolactone [Aldactone] 25 mg PO DAILY 30 Days #30 tab 08/31/21 [Rx] Follow up Appointment(s)/Referral(s): Xin Mills MD [Primary Care Provider] - 1-2 days Lorenza Goncalves MD [STAFF PHYSICIAN] - 1 Week Patient Instructions/Handouts: Hyponatremia (DC) Activity/Diet/Wound Care/Special Instructions: Activity Limited until follow-up Follow-up primary care provider on discharge Follow-up with [facility] as scheduled tomorrow Follow-up cardiology Continue taking medications as prescribed Discharge Disposition: HOME SELF-CARE
== END 2021-08-31 14:50 | disposition home or self-care (01) | DRG 291 ==
LOC: EC 18:09 → 2SICU 23:17
PROVIDERS: ADMIT Internal Medicine; ATTEND Internal Medicine
DX: I11.0 Hypertensive heart disease with heart failure (principal); I50.43 Acute on chronic combined systolic (congestive) and diastolic (congestive) heart failure; R57.0 Cardiogenic shock; C90.00 Multiple myeloma not having achieved remission; E85.4 Organ-limited amyloidosis; E87.1 Hypo-osmolality and hyponatremia; I31.3 Pericardial effusion (noninflammatory); R79.89 Other specified abnormal findings of blood chemistry; I43 Cardiomyopathy in diseases classified elsewhere; I42.5 Other restrictive cardiomyopathy; I42.8 Other cardiomyopathies; E86.0 Dehydration; R63.0 Anorexia; D69.6 Thrombocytopenia, unspecified; F32.A Depression, unspecified; E78.00 Pure hypercholesterolemia, unspecified; E87.6 Hypokalemia; F17.210 Nicotine dependence, cigarettes, uncomplicated; I27.29 Other secondary pulmonary hypertension; E87.70 Fluid overload, unspecified; I08.1 Rheumatic disorders of both mitral and tricuspid valves; J98.4 Other disorders of lung; K21.9 Gastro-esophageal reflux disease without esophagitis; K59.09 Other constipation; T45.1X5A Adverse effect of antineoplastic and immunosuppressive drugs, initial encounter; T50.2X5A Adverse effect of carbonic-anhydrase inhibitors, benzothiadiazides and other diuretics, initial encounter; Z79.899 Other long term (current) drug therapy; Z82.49 Family history of ischemic heart disease and other diseases of the circulatory system; Z86.73 Personal history of transient ischemic attack (TIA), and cerebral infarction without residual deficits; Z91.02 Food additives allergy status
CPT/HCPCS: 36415; 70450; 71045; 71046; 72125; 80048; 80051; 80053; 80061; 81003; 83735; 83880; 84132; 84145; 84295; 84484; 85025; 85610; 85730; 86022; 87040; 93005; 93306; 96360; 99291